=== PATIENT | female | born 1960 | race Caucasian/White ===

== ENCOUNTER 2017-10-16 19:43 | Emergency (ER) | payer OTHER ==
[~2017-10-16] VITALS: Ht 162.6 cm; Wt 124.4 kg
[~2017-10-16 19:43] MED LIST: ALBU1AER9 INH; ATV/1 PO; DOXE50CA3 PO; FLUO10CA48 PO; FURO-85 PO; HARVONI PO; HOME1TAB55 PO; INSDGIPEN SC; LEVO175T PO; LISI5TAB PO; NVLGI SC; ONDA-63 PO; SIMV20TA5 PO; TAMO20TA9 PO; TOPI50TA16 PO
[2017-10-16 19:50] VITALS: TEMP 37; Ht 162.6 cm; Wt 124.4 kg
--- NOTE | 2017-10-16 20:28 | DIAGNOSTIC IMAGING REPORT ---
L SHOULDER MIN 2 VIEWS ROUTINE HISTORY: 57 years-old Female L shoulder acute left shoulder pain COMPARISON: Chest radiographs 10/15/2015 TECHNIQUE: 3 views of the left shoulder FINDINGS: Mild degenerative changes of the glenohumeral and AC joints. There is no acute fracture or dislocation identified. The imaged lung horan appear clear. IMPRESSION: No acute fracture or dislocation. The above report was generated using voice recognition software. It may contain grammatical, syntax or spelling errors. Electronically signed by: Ap Borges M.D. 10/16/2017 8:27 PM Dictated Date/Time: 10/16/2017 8:25 PM
[2017-10-16] MEDS ORDERED: KETOROLAC TROMETHAMINE 10 MG TAB PO STA (20:38)
--- NOTE | 2017-10-16 20:47 | EMERGENCY ROOM VISIT NOTE ---
ED Visit Note First contact with patient: 19:55 I have seen and examined this patient with Raffy William and generally agree with the treatment plan as discussed. Problem List Medical Problems: (1) Ankle fracture, left Permanent Comment: s/p repair Status: Resolved (2) Anxiety Status: Chronic (3) Breast cancer Status: Chronic (4) Diabetes mellitus Status: Chronic (5) Hepatitis C Status: Chronic (6) HTN (hypertension) Status: Chronic (7) Hypothyroidism Status: Chronic Surgical Problems: (1) S/P cholecystectomy Status: Chronic (2) S/P partial hysterectomy Status: Chronic (3) S/P tubal ligation Status: Chronic Current/Historical Medications Scheduled Albuterol (Proair Hfa), 2 PUFFS INH QID Doxepin (Sinequan), 100 MG PO QPM Fluoxetine (Prozac), 30 MG PO QAM Insulin Aspart (Novolog), 1 UNITS SC TID Insulin Glargine (Lantus Solostar), 50 UNITS SC BID Levothyroxine Sodium (Synthroid), 175 MCG PO QAM Lisinopril (Prinivil), 2.5 MG PO QAM Simvastatin (Zocor), 20 MG PO QPM Tamoxifen (Nolvadex), 20 MG PO QAM Topiramate (Topamax), 50 MG PO HS [harvoni 90-400 mg], 1 TAB PO DAILY Scheduled PRN Furosemide (Lasix), 20 MG PO DAILY PRN for WEIGHT GAIN Homeopathic Products (Azo Yeast Plus), 1 TAB PO UD PRN for YEAST SYMPTOMS Lorazepam (Ativan), 1 MG PO TID PRN for ANXIETY Ondansetron (Ondansetron HCl), 8 MG PO Q8 PRN for Nausea Allergies Coded Allergies: Codeine (Verified Adverse Reaction, Mild, N/V, 08/26/15) Varenicline (Verified Adverse Reaction, Mild, [place]IGHT[place], 08/26/15) Morphine (Verified Adverse Reaction, Unknown, PT HAD INSTANT HEADACHE AND NECK PAIN AFTER IVP DOSE, 08/26/15) Vital Signs Date Time Temp Pulse Resp B/P (MAP) Pulse Ox O2 Delivery O2 Flow Rate FiO2 10/16/17 19:50 37.0 97 20 164/119 96 Room Air Departure Information Impression Primary Impression: Left shoulder pain Dispostion Home / Self-Care Forms HOME CARE DOCUMENTATION FORM, IMPORTANT VISIT INFORMATION Patient Instructions My [facility] Additional Instructions Use 10 mg of Toradol every 6 hours as needed for pain; do not take additional NSAID medications like Aleve, aspirin or ibuprofen with this medication. This medication should be taken with food and stop for stomach pain or indigestion. Use ice on the area 5-6 times a day for 20-30 minutes. Keep your upcoming appointment with your primary care provider for recheck and possible referral to orthopedics. Return to the ED for worsening pain, arm weakness/numbness/tingling or any new/ concerning symptoms.
[2017-10-16 21:00] VITALS: BP 127/100; PULSE 87; O2SAT 95
--- NOTE | 2017-10-17 15:43 | Pharmacy Progress Note ---
ED Pharmacist Progress Note Date of Service: Oct 17, 2017. Called the following to [facility] at the request of Raffy William PA-C Toradol 10 mg tablet 1 tab po q6h prn pain #20 tabs, 0 refill
--- NOTE | 2017-10-17 20:39 | EMERGENCY ROOM VISIT NOTE ---
ED Visit Note First contact with patient: 19:55 Chief Complaint: I think I tore my rotator cuff in my left shoulder. History of Present Illness: Ms. Gates is a 57-year-old white female who ambulates into the ED complaining of left shoulder pain. Historically patient reports that she had a fusion to her right foot feet approximately a 2 months ago and and since that time she has been having multiple falls; her last fall was approximately 3 weeks ago as she was carrying groceries. She reports most of her falls she has been able to compensate and not strike the ground by extending her arms, but she has never fall directly on the shoulder. Historically patient also reports that she has been having shoulder pain for many months. She reports that she was in pain management for many years for her chronic pain conditions. She goes on to report that she was discharged from pain management in April because of a criminal conviction. Currently patient is complaining of severe left shoulder pain. She places her discomfort over the anterior and lateral humeral head. She describes her pain as a sharp sensation. Her pain is nonradiating. Her pain worsens with abduction and extension of the arm and palpation of the anterior lateral humerus. She has not identified any alleviating factors related to the pain. She reports she has not taken any medications for pain prior to arrival at the hospital. Associated with her pain she reports she feels that her shoulder is weak primarily with abduction, extension and external rotation. She denies any associated skin eruptions, skin color changes, headache, neck pain, clavicle pain, scapular pain, lower humerus pain, elbow pain, forearm pain, wrist pain, hand weakness/numbness/tingling. Review of Systems: As noted above in history of present illness. Past Medical History: Diabetes, kidney disease, unspecified skin problems, asthma, bronchitis, pneumonia, hepatitis C, glaucoma, status post cholecystectomy, hysterectomy and unspecified foot surgeries. Current Medications: Medications Dose Route/Sig Max Daily Dose Days Date Category Dose Instructions Ondansetron HCl (Ondansetron) 8 Mg Tab 8 Mg PO Q8 PRN 08/26/15 Reported [harvoni 90-400 mg] 1 Tab PO DAILY 08/23/15 Reported Azo Yeast Plus (Homeopathic Products) 1 Tab Tab 1 Tab PO UD PRN 08/08/15 Reported Prozac (Fluoxetine HCl) 10 Mg Cap 30 Mg PO QAM 08/02/15 Reported Ativan (Lorazepam) 1 Mg Tab 1 Mg PO TID PRN 05/22/15 Reported Synthroid (Levothyroxine Sodium) 175 Mcg Tab 175 Mcg PO QAM 05/22/15 Reported Sinequan (Doxepin HCl) 50 Mg Cap 100 Mg PO QPM 05/22/15 Reported Topamax (Topiramate) 50 Mg Tab 50 Mg PO HS 11/30/14 Reported Lasix (Furosemide) 20 Mg Tab 20 Mg PO DAILY PRN 11/30/14 Reported Novolog (Insulin Aspart) 100 Unit/ Inj 1 Units SC TID 11/30/14 Reported takes before breakfast, lunch, and dinner per slidin scale Prinivil (Lisinopril) 5 Mg Tab 2.5 Mg PO QAM 11/30/14 Reported Zocor (Simvastatin) 20 Mg Tab 20 Mg PO QPM 11/30/14 Reported Nolvadex (Tamoxifen Citrate) 20 Mg Tab 20 Mg PO QAM 11/30/14 Reported Lantus Solostar (Insulin Glargine) 100 Unit/Ml Inj 50 Units SC BID 11/30/14 Reported Proair Hfa (Albuterol) Aers 2 Puffs INH QID 11/30/14 Reported Allergies to Medications: Codeine, morphine,varenicline. Social History: Patient is not employed; she is on disability; she feels safe in her home environment; she denies tobacco and alcohol use. Physical Examination: Vital Signs: Date Time Temp Pulse Resp B/P (MAP) Pulse Ox O2 Delivery O2 Flow Rate FiO2 10/16/17 21:00 87 16 127/100 95 10/16/17 19:50 37.0 97 20 164/119 96 Room Air GENERAL: 57-year-old female in mild distress due to pain, nontoxic-appearing, afebrile and hemodynamically stable. NEUROLOGICAL: Awake, alert and oriented to person, place and time. Answering questions appropriately and following commands. Normal gait. Good hand eye coordination. SKIN: Warm, dry and pink. No soft tissue eruptions or trauma noted. HEENT: Atraumatic and normocephalic. BACK: No tenderness over the bony cervical and thoracic spine. No tenderness throughout the paraspinous muscles and no palpable spasm. LEFT UPPER EXTREMITY: No gross bony deformity. No tenderness over the clavicle , acromion clavicular joint and scapula. Mild to moderate tenderness over the anterior and lateral humeral head. I do not find any point tenderness over the SITS muscles. I do not appreciate any bony deformity or crepitus. She has decreased range of motion in all movements due to pain. She refused muscle strength testing due to pain. With the shoulder stabilized she had full range of motion in flexion and extension of the elbow, pronation and supination of the forearm, flexion, extension and radial and ulnar deviation of the wrist against resistance. Throughout the extremity the skin was warm and pink and capillary refill was brisk. She was able to distinguish light sensations to all dermatomes. ED Course: Patient is assessed as noted above. Patient's medication list was reviewed. Patient was given 10 mg of Toradol by mouth for pain. Left Shoulder X-Rays: Was read by myself and the radiologist showing no acute fractures or dislocations. Radiologist does note mild degenerative changes of the glenohumeral and acromioclavicular joints. Patient was offered a sling and refused. Patient was educated about today's findings and instructed on her treatment plan ; she verbalized understanding and agreement with this plan. Clinical Impression: Left shoulder pain. Decision-Making: Initially my differential diagnosis I considered fracture, dislocation, separation, chronic degenerative changes, capsulitis and other causes. Disposition: Patient discharged home in stable condition; prior to departure she was reassessed and subjectively reported she was pain-free. Plan: Patient was encouraged to use 10 mg of Toradol every 6 hours as needed for pain and not to use any additional NSAID medications. She is encouraged to take this medication with food and stop for stomach pain or indigestion. Patient was encouraged to use ice on areas of pain 5-6 times a day for 20-30 minutes. Patient reports she has an upcoming appointment with her primary care provider and I asked her to keep that appointment and review ED visit and have her shoulder reevaluated or possible referral to orthopedics. Patient was encouraged to return the ED for worsening/uncontrolled pain, arm weakness/numbness/tingling or any new/concerning symptoms.
== END 2017-10-16 21:03 | disposition home or self-care (01) ==
LOC: C.EDB 19:44 → C.EDD 21:03
DX: M25.512 Pain in left shoulder (principal); E11.9 Type 2 diabetes mellitus without complications; J45.909 Unspecified asthma, uncomplicated; B19.20 Unspecified viral hepatitis C without hepatic coma; I10 Essential (primary) hypertension; E03.9 Hypothyroidism, unspecified; H40.9 Unspecified glaucoma; Z90.49 Acquired absence of other specified parts of digestive tract; Z90.711 Acquired absence of uterus with remaining cervical stump; Z79.4 Long term (current) use of insulin; Z88.5 Allergy status to narcotic agent; Z88.8 Allergy status to other drugs, medicaments and biological substances; F41.9 Anxiety disorder, unspecified; Z98.51 Tubal ligation status

== ENCOUNTER 2020-04-24 15:43 | Observation (INO) ==
[2020-04-24] MEDS ORDERED: ONDANSETRON INJ 2 MG/ML 2 ML VIAL IV STA (16:04)
[2020-04-24] MEDS ORDERED: MoRPHine SULFATE 4 MG/ML 1 ML CARP\\VIAL IV STA ×2 (16:04→17:17)
--- NOTE | 2020-04-24 16:12 | Emergency Department Note ---
History of Present Illness General Chief complaint: Hip Pain Time Seen by Provider: 04/24/20 15:55 Source: patient Mode of arrival: EMS Limitations: no limitations History of Present Illness Maximum Pain Intensity: 10 This patient comes in after having left hip pain for 3 weeks she says it shoots down her leg and also radiates towards her buttocks and groin. She tried Advil and said it was working for a while but is no longer working. Today when she got up she had so much pain in her legs she said it felt like he could not work and she fell or almost fell a few times but denies any injury. There is no injury prior to this. She says she has a history of having a disc problem in her back but is never had any surgery or been seen by an orthopedist. She also does have fibromyalgia. She denies any fever or chills. No urinary symptoms No known exposure to COVID. No COVID-like symptoms she does have a chronic smoker's cough which is unchanged. No achiness.. No bowel or bladder problems. Home Medications Home Medications Medication Instructions Recorded Confirmed Type albuterol sulfate 2 inh INHALATION Q6H PRN 08/21/18 04/24/20 History duloxetine 60 mg PO BID 08/21/18 04/24/20 History furosemide 20 mg PO DAILY PRN 08/21/18 04/24/20 History omeprazole 20 mg PO QAM PRN 08/21/18 04/24/20 History simvastatin 20 mg PO HS 08/21/18 04/24/20 History Lantus U-100 Insulin 40 unit SUBCUT QPM 10/28/18 04/24/20 History Trulicity 1.5 mg SUBCUT MO 10/28/18 04/24/20 History gabapentin [Neurontin] 800 mg PO TID 10/28/18 04/24/20 History levothyroxine [Synthroid] 150 mcg PO QAM 10/28/18 04/24/20 History quetiapine [Seroquel] 100 mg PO HS 03/27/19 04/24/20 History lorazepam [Ativan] 1 mg PO BID 09/23/19 04/24/20 History topiramate [Topamax] 25 mg PO BID 09/23/19 04/24/20 History ondansetron HCl [Zofran] 4 mg PO BID PRN 11/30/19 04/24/20 History Medical Marijuanna 1 dose INHALATION DAILY PRN 03/03/20 04/24/20 History hydroxyzine pamoate 50 mg PO TID 04/24/20 04/24/20 History Allergies Allergy/AdvReac Type Severity Reaction Status Date / Time codeine AdvReac Mild N/V Verified 04/24/20 17:34 varenicline AdvReac Mild NIGHTMARES Verified 04/24/20 17:34 Past Med/Surg History Medical History (Updated 04/24/20 @ 22:57 by Roscoe Bach MD) Anxiety Chronic obstructive pulmonary disease Depression Diabetes mellitus, type 2 Fibromyalgia GERD (gastroesophageal reflux disease) History of falling 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 Hx of hepatitis C treated HX: breast cancer 2013 LEFT - radiation and lumpectomy and oral chemo Hyperlipidemia Hypertension taking med for precaution with diabetes Medical marijuana use Osteoarthritis Peripheral neuropathy LEGS - BOTH FEET Schizoaffective disorder Surgical History History of ankle surgery RT ANKLE X 3 History of bilateral tubal ligation History of cholecystectomy History of colonoscopy History of dilatation and curettage History of esophagogastroduodenoscopy (EGD) History of hysterectomy History of lumpectomy of left breast History of open reduction and internal fixation (ORIF) procedure RIGHT ANKLE History of surgery TO REMOVE CALCIUM DEPOSIT FROM BACK History of tooth extraction all teeth Family History Father Family history of diabetes mellitus Other No family history of adverse response to anesthesia Social History Smoking Status: Current every day smoker Tobacco Type: Cigarettes Cigarettes Per Day: 12; Second Hand Exposure: No; Hx Alcohol Use: No Hx Substance Use: Yes (USES 2-3X WEEK) Last Used Substance Other:: medical marijuanna Substance Use Type Other:: (ADVISED) Preferred Language: Liberian Communication Ability: Effective Can Operator Required: No Beliefs That Will Affect Care: None Current Living Situation: Alone Current Living Situation Comment: friends stay Feels Safe at Home: Yes Safety Concerns: Feels Safe At This Time Assistive Devices: Cane, Denture - Upper, Denture - Lower and Wheelchair Review of Systems A total of 10 systems reviewed and were otherwise negative Physical Exam Vital Signs Vital Signs - 24 hr 04/24/20 15:49 04/24/20 17:34 04/24/20 19:43 Temperature 36.7 C Temperature Source Oral Pulse Rate 78 73 Pulse Rate [Right Finger] 72 73 Pulse Rhythm Regular Pulse Strength Normal Respiratory Rate 16 16 22 Respiratory Effort / Characteristics Non-Labored Non-Labored Respiratory Depth Normal Normal Respiratory Pattern Regular Blood Pressure 158/96 H Blood Pressure [Right Arm] 137/87 168/97 H Blood Pressure Mean 116 Blood Pressure Mean [Right Arm] 103 120 Blood Pressure Position Lying Blood Pressure Position [Right Arm] Sitting Sitting Pulse Oximetry 98 93 95 Oxygen Delivery Method Room Air Room Air Room Air Sepsis Recent Fever Within 48 Hours No Sepsis New/Unexplained Change in Mental Status N/A Sepsis Action Taken by Nursing No Action Required General: Well developed well nourished middle-age female who appears in no acute distress, breathing comfortably on room air. Normal speech HEENT: Normal cephalic atraumatic. Pupils are equal round and reactive to light. Extraocular movements are intact. Oropharynx is pink with moist mucous membranes. No swelling of the mouth lips or tongue. Neck: Supple with a midline trachea. No meningeal signs or stiffness, no JVD or bruits. No Stridor. Chest: Clear to auscultation bilaterally. No wheezes or rhonchi. No increased work of breathing. Heart: Regular rate and rhythm without murmurs or gallops. Abdomen: Soft nontender, nondistended without rebound guarding or rigidity. Extremities: No cyanosis clubbing or edema. No calf tenderness or assymetry. T here is no mass or swelling in the left groin. There is minimal tenderness with leg raise. There is no shortening or deformity. Distally in the left lower extremity has normal motor and sensation and pulse. When I rotate her hip that causes a little bit of pain. She has pain along the left SI joint Spine/Back. Mildly tender to palpation. No CVA tenderness Skin: Good turgor without rashes. Neurologic exam: Cranial nerves two through 12 are intact. Motor and sensation are intact and symmetrical throughout. Course Administered Medications Cyclobenzaprine HCl (Cyclobenzaprine Hcl 10 Mg Tab) 10 mg PO TID ANGIE Stop: 05/24/20 20:59 Last Admin: 04/24/20 20:57 Dose: 10 mg Documented by: [id number] Diclofenac Sodium (Diclofenac Sod 1% Gel 100 Gm Tube) 4 gm EXT BID [facility] Stop: 05/24/20 20:59 Last Admin: 04/24/20 21:19 Dose: 4 gm Documented by: [id number] Gabapentin (Gabapentin 800 Mg Tab) 800 mg PO TID ANGIE Stop: 05/24/20 20:59 Last Admin: 04/24/20 21:20 Dose: 800 mg Documented by: [id number] Hydralazine HCl (Hydralazine Hcl 20 Mg/Ml Vial) 10 mg IV Q6H PRN PRN Reason: Hypertension Stop: 05/24/20 20:29 Last Admin: 04/24/20 20:57 Dose: 10 mg Documented by: [id number] Insulin Aspart (Insulin Aspart 100 Units/Ml 3 Ml Pen) 0 units SC ACHS [facility] Stop: 04/24/20 23:59 Last Admin: 04/24/20 21:16 Dose: 5 units Documented by: [id number] Cosigned by: [id number] Lidocaine (Lidocaine 5% 1 Patch) 1 patch TD 2100 [facility] Stop: 05/24/20 20:59 Last Admin: 04/24/20 21:19 Dose: 1 patch Documented by: [id number] Lorazepam (Lorazepam 1 Mg Tab) 1 mg PO BID [facility] Stop: 05/24/20 20:59 Last Admin: 04/24/20 20:57 Dose: 1 mg Documented by: [id number] Morphine Sulfate (Morphine Sulfate 2 Mg/Ml Carp) 2 mg IV Q3H PRN PRN Reason: Pain Stop: 05/08/20 21:39 Last Admin: 04/24/20 21:46 Dose: 2 mg Documented by: [id number] Quetiapine Fumarate (Quetiapine Fumarate 100 Mg Tablet) 100 mg PO HS [facility] Stop: 05/24/20 20:59 Last Admin: 04/24/20 21:21 Dose: 100 mg Documented by: [id number] Simvastatin (Simvastatin 20 Mg Tab) 20 mg PO HS [facility] Stop: 05/24/20 20:59 Last Admin: 04/24/20 21:21 Dose: 20 mg Documented by: [id number] Topiramate (Topiramate 25 Mg Tab) 25 mg PO BID [facility] Stop: 05/24/20 20:59 Last Admin: 04/24/20 21:21 Dose: 25 mg Documented by: [id number] Tramadol HCl (Tramadol Hcl 50 Mg Tablet) 50 mg PO Q4H PRN PRN Reason: Pain Stop: 05/24/20 20:27 Last Admin: 04/24/20 21:15 Dose: 50 mg Documented by: [id number] Discontinued Medications Insulin Glargine (Insulin Glargine Solostar 100 Units/Ml 3 Ml Pen) 20 units SQ TODAY@2100 ANGIE Stop: 04/24/20 21:01 Last Admin: 04/24/20 21:18 Dose: 20 units Documented by: [id number] Cosigned by: [id number] Insulin Human NPH (Novolin-N (Nph) Per Unit Charge) 20 units SQ TODAY@2100 ANGIE Stop: 04/24/20 21:01 Last Admin: 04/24/20 21:17 Dose: 20 units Documented by: [id number] Cosigned by: [id number] Methylprednisolone (Methylprednisolone 125 Mg/2 Ml Vial) 125 mg IV NOW STA Stop: 04/24/20 17:18 Last Admin: 04/24/20 17:30 Dose: 125 mg Documented by: [id number] Morphine Sulfate (Morphine Sulfate 4 Mg/Ml 1 Ml Carp\Vial) 4 mg IV NOW STA Stop: 04/24/20 16:05 Last Admin: 04/24/20 16:44 Dose: 4 mg Documented by: [id number] Morphine Sulfate (Morphine Sulfate 4 Mg/Ml 1 Ml Carp\Vial) 4 mg IV NOW STA Stop: 04/24/20 17:18 Last Admin: 04/24/20 17:30 Dose: 4 mg Documented by: [id number] Ondansetron HCl (Ondansetron Inj 2 Mg/Ml 2 Ml Vial) 4 mg IV NOW STA Stop: 04/24/20 16:05 Last Admin: 04/24/20 16:44 Dose: 4 mg Documented by: [id number] Medical Decision Making Differential Diagnosis Sciatica, lumbar degenerative disc disease, fracture, hip dislocation, arthritis, infection, diabetic complication, fibromyalgia Medical Records Attestation: I reviewed the patient's medical records. Home Medications Current Medication List: was personally reviewed by me Laboratory Data Attestation: I reviewed the patient's lab results. Result diagrams: 04/24/20 16:13 04/24/20 16:13 Lab Results 04/24/20 04/24/20 Range/Units 16:13 16:13 WBC 9.77 (4.8-10.8) K/uL RBC 4.38 (4.2-5.4) M/uL Hgb 12.5 (12.0-16.0) g/dL Hct 39.3 (37-47) % MCV 89.7 (80-100) fL MCH 28.5 (25-34) pg MCHC 31.8 L (32-36) g/dL RDW Std Deviation 50.3 H (36.4-46.3) fL RDW Coeff of Jessy 15.5 H (11.5-14.5) % Plt Count 281 (130-400) K/uL MPV 9.2 (7.4-10.4) fL Immature Gran % (Auto) 0.2 % Neut % (Auto) 69.1 % Lymph % (Auto) 19.5 % [place] % (Auto) 5.3 % Eos % (Auto) 5.5 % Baso % (Auto) 0.4 % Neut # (Auto) 6.74 H (1.4-6.5) K/uL Lymph # (Auto) 1.91 (1.2-3.4) K/uL [place] # (Auto) 0.52 (0.11-0.59) K/uL Eos # (Auto) 0.54 H (0-0.5) K/uL Baso # (Auto) 0.04 (0-0.2) K/uL Immature Gran # (Auto) 0.02 (0.00-0.02) K/uL Sodium 142 (136-145) mmol/L Potassium 3.7 (3.5-5.1) mmol/L Chloride 108 H (98-107) mmol/L Carbon Dioxide 29 (21-32) mmol/L Anion Gap 5.0 (3-11) BUN 9 (7-18) mg/dl Creatinine 0.87 (0.6-1.2) mg/dl Est Cr Clr Drug Dosing 85.9 ml/min Est GFR ( Amer) 85.1 Est GFR (Non-Af Amer) 73.4 BUN/Creatinine Ratio 10.5 (10-20) Glucose 165 H (70-99) mg/dl Calcium 8.1 L (8.5-10.1) mg/dl Total Bilirubin 0.2 (0.2-1) mg/dl AST 22 (15-37) U/L ALT 18 (12-78) U/L Alkaline Phosphatase 100 (45-117) U/L Total Protein 6.3 L (6.4-8.2) gm/dl Albumin 2.9 L (3.4-5.0) gm/dl Globulin 3.4 (2.5-4.0) gm/dl Albumin/Globulin Ratio 0.9 (0.9-2) Lipase 155 (73-393) U/L Imaging Data Attestation: I personally reviewed and interpreted this imaging study as follows: Radiologist's Impression: XR hip LT 2V w pelvis CLINICAL HISTORY: left hip pain COMPARISON: Left hip radiographs November 24, 2015. FINDINGS: Sacroiliac joints and symphysis pubis are intact. There is no acute fracture within the pelvis or hips. There is no radiographic evidence for avascular necrosis of the femoral heads. There is minimal joint space narrowing and mild osteophytosis of the left hip. A few bone islands within the intertrochanteric portion of the left femur are noted. IMPRESSION: 1. No acute fracture within the pelvis or hips. 2. Mild left hip osteoarthritis. XR lumbar spine min 4V routine CLINICAL HISTORY: back pain towards left hip COMPARISON STUDY: Lumbar spine radiographs November 24, 2015. FINDINGS: Incidental note is made of cholecystectomy clips. Alignment of the lumbar spine is anatomic. Vertebral body heights are maintained. There is no fracture or suspicious lesion. There is mild multilevel disc space narrowing and osteophytosis. There is mild to moderate multilevel facet arthrosis. IMPRESSION: 1. No acute lumbar spine fracture or subluxation. 2. [id number]-[id number] multilevel degenerative changes within the lumbar spine. Blood Pressure Blood Pressure Findings: Elevated blood pressure Blood Pressure Disposition: elevated BP felt to be situational MDM Narrative This patient comes in as described above. She was placed in room C2. She is having ongoing left hip pain. There is no trauma. On exam, she does not appear dislocated or shortened. She is neurologically and neurovascularly intact. She has nothing to suggest cauda equina syndrome. She is not driving. She does have history of fibromyalgia but says this feels different. She denies feeling depressed or suicidal. IV access was established. She was given morphine 4 mg IV and Zofran 4 mg IV. Blood testing and urinalysis was obtained as well as x- rays of the hip and back. Given the fact that she was given narcotic pain medication she was placed on a quantitative researcher. She has no significant electrolyte or metabolic abnormalities. X-rays show some degenerative changes of the back and lesser of the hip. No fracture or dislocation. She has nothing to suggest infection or sepsis. She is complaining that she cannot walk because it hurts and gives out. She was given an additional morphine 4 mg IV as well as Solu-Medrol 125 mg IV. Despite this she still cannot walk very well and I do think needs to be admitted for further treatment and evaluation and I did consult the hospitalist to see her for these measures. Continuous cardiac monitoring: An order was placed in the EMR for continuous cardiac monitoring. The patient was noted to be in normal sinus rhythm with a rate of 75. Impression & Plan Acute hip pain, Fibromyalgia, Lumbar disc disease with radiculopathy, Sciatica Discharge Plan Visit Data Chief Complaint: Hip Pain ED Provider: Roscoe Bach Discharge Problem: Acute hip pain, Fibromyalgia, Lumbar disc disease with radiculopathy, Sciatica Patient Disposition: Admitted As Inpatient Discharge Instructions Interventions: ED Discharge Assessment Last Done: 04/24/20 20:04 Discharge Problem: Acute hip pain Qualifiers: Laterality: left Qualified Code(s): M25.552 - Pain in left hip Sciatica Qualifiers: Laterality: left Qualified Code(s): M54.32 - Sciatica, left side
[2020-04-24 16:26] LABS: Basophils # (auto) 0.04 K/uL (0-0.2); Basophils % (auto) 0.4 %; Eosinophils # (auto) 0.54 K/uL (0-0.5); Eosinophils % (auto) 5.5 %; Hematocrit (blood only) 39.3 % (37-47); Hemoglobin 12.5 g/dL (12.0-16.0); Immature Granulocytes # (auto) 0.02 K/uL (0.00-0.02); Immature Granulocytes % (auto) 0.2 %; Lymphocytes # (auto) 1.91 K/uL (1.2-3.4); Lymphocytes % (auto) 19.5 %; Mean Corpuscular Hemoglobin 28.5 pg (25-34); Mean Corpuscular Hgb Conc 31.8 g/dL (32-36); Mean Corpuscular Volume 89.7 fL (80-100); Mean Platelet Volume 9.2 fL (7.4-10.4); Monocytes # (auto) 0.52 K/uL (0.11-0.59); Monocytes % (auto) 5.3 %; Neutrophils # (auto) 6.74 K/uL (1.4-6.5); Neutrophils % (auto) 69.1 %; Platelet Count 281 K/uL (130-400); RDW Coefficient of Variation 15.5 % (11.5-14.5); RDW Standard Deviation 50.3 fL (36.4-46.3); Red Blood Count 4.38 M/uL (4.2-5.4); White Blood Count 9.77 K/uL (4.8-10.8)
--- NOTE | 2020-04-24 16:39 | XRay Report ---
XR hip LT 2V w pelvis CLINICAL HISTORY: left hip pain COMPARISON: Left hip radiographs November 24, 2015. FINDINGS: Sacroiliac joints and symphysis pubis are intact. There is no acute fracture within the pe lvis or hips. There is no radiographic evidence for avascular necrosis of the femoral heads. There is minimal joint space narrowing and mild osteophytosis of the left hip. A few bone islands within the intertrochanteric portion of the left femur are noted. IMPRESSION: 1. No acute fracture within the pelvis or hips. 2. Mild left hip osteoarthritis. ACT 112: Negative or not required by law. Electronically signed by: Satish Wheeler M.D. 04/24/2020 4:38 PM
--- NOTE | 2020-04-24 16:40 | XRay Report ---
XR lumbar spine min 4V routine CLINICAL HISTORY: back pain towards left hip COMPARISON STUDY: Lumbar spine radiographs November 24, 2015. FINDINGS: Incidental note is made of cholecystectomy clips. Alignment of the lumbar spine is anatomic . Vertebral body heights are maintained. There is no fracture or suspicious lesion. There is mild mul tilevel disc space narrowing and osteophytosis. There is mild to moderate multilevel facet arthrosis. IMPRESSION: 1. No acute lumbar spine fracture or subluxation. 2. [id number] multilevel degenerative changes within the lumbar spine. ACT 112: Negative or not required by law. Electronically signed by: Satish Wheeler M.D. 04/24/2020 4:39 PM
[2020-04-24 16:44] LABS: Albumin Level 2.9 gm/dl (3.4-5.0); BUN Creatinine Ratio 10.5 (10-20); Calcium 8.1 mg/dl (8.5-10.1); Creatinine Clr Calc Pharmacy 85.9 ml/min; Est GFR (African American) 85.1; Est GFR (Non-African American) 73.4; Potassium 3.7 mmol/L (3.5-5.1)
[2020-04-24 16:47] LABS: Albumin Globulin Ratio 0.9 (0.9-2); Bilirubin,Total 0.2 mg/dl (0.2-1); Globulin 3.4 gm/dl (2.5-4.0); Total Protein 6.3 gm/dl (6.4-8.2)
[2020-04-24] MEDS ORDERED: methylPREDNISolone 125 MG/2 ML VIAL IV STA (17:17)
--- NOTE | 2020-04-24 20:09 | History & Physical Report ---
Date of Service April 24, 2020 Assessment & Plan (1) Acute hip pain: Patient with acute hip pain with some associated urinary incontinence Plain films with osteoarthritis and degenerative changes Need to rule out cauda equina Check MRI of lumbar region Consult orthopedic spine PT/OT evaluation treatment N.p.o. after midnight (2) Diabetes mellitus: Hemoglobin A1c on 04/01/2020 was 7.4 Continue with Lantus and sliding scale NovoLog Last injection of Trulicity was 1 week ago on Saturday We will hold Trulicity for now Resume outpatient meds on discharge and follow-up with PCP (3) Fibromyalgia: Tramadol Gabapentin Continue home meds (4) Hypothyroidism: Recent TSH has been elevated as an outpatient Continue levothyroxine at recently increased dose of 175 mcg daily (5) Schizoaffective disorder: Continue home medications Monitor for prolonged QTC Further management outpatient (6) HTN (hypertension): Lisinopril recently held as an outpatient secondary to acute kidney failure We will order hydralazine as needed for systolic blood pressure greater than 160 (7) DVT prophylaxis: Hold chemical prophylaxis pending MRI of lumbar region to rule out cauda equina SCDs SANTANA weinstein Please refer to Dr. Marc's addendum for further recommendations and corrections History of Present Illness Chief Complaint: Hip pain Primary Care Provider: Ania Rice MD Attending: Dr. Marc This is a 60-year-old female with a complicated medical history including fibromyalgia, hypothyroidism, diabetes mellitus type 2, hyper tension, history of breast cancer, history of left ankle fracture, GERD, schizoaffective disorder, glaucoma, morbid obesity, medical marijuana use, posttraumatic stress disorder, obstructive lung disease, chronic cough from smoking. The patient reports that for the last 2 to 3 weeks she has had increasing left- sided pain to her hip and leg with associated pain to her lumbar region. This is been more progressive over the last 2 to 3 days to the point where she had to crawl to the bathroom. She reports that she is unable to walk at this time. She does live alone. She reports that yesterday she had to crawl to the bathroom. In addition, she reports some urinary incontinence. The pain originates in her hip and goes down her left leg. Physical examination reveals no pain with straight leg raise but she does have noticeable weakness to the left lower extremity. Sensation is intact to the toes. It appears to be equal to the right and left distal extremities with the exception of Romberg where she had minimal discomfort on the left sole of the foot. She reports no falls or trauma. She reports no injury to the left hip. She denies any fever or chills. She does not have any exquisite pain to palpation of the left hip or lumbar region of her back. She denies motor vehicle accident in the past or other traumatic injury. She denies any prior lumbar surgery. She states that she does follow with the [facility] [place] with Dr. Mathieu Dent for previous right ankle fracture and fusion. The patient does have children in the area as well as grandchildren. She denies any contact with any COVID positive patients or patients with question of symptoms. She does have 1 child that works at [employer] who has been isolated from the patient for fear of communicable disease. She denies any fever or chills. She has no loss of taste or smell. She has no other associated COVID symptoms. The patient is a lifetime smoker starting at age 15 and smoking 1 pack/day since that time to present. The patient is prescribed medical marijuana The patient denies any other illicit substance abuse or ethanol abuse The patient states that she is on disability since 2004. 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 Allergies Allergy/AdvReac Type Severity Reaction Status Date / Time codeine AdvReac Mild N/V Verified 04/24/20 17:34 varenicline AdvReac Mild NIGHTMARES Verified 04/24/20 17:34 Home Medications Home Medications Medication Instructions Recorded Confirmed Type albuterol sulfate 2 inh INHALATION Q6H PRN 08/21/18 04/24/20 History duloxetine 60 mg PO BID 08/21/18 04/24/20 History furosemide 20 mg PO DAILY PRN 08/21/18 04/24/20 History omeprazole 20 mg PO QAM PRN 08/21/18 04/24/20 History simvastatin 20 mg PO HS 08/21/18 04/24/20 History Lantus U-100 Insulin 40 unit SUBCUT QPM 10/28/18 04/24/20 History Trulicity 1.5 mg SUBCUT MO 10/28/18 04/24/20 History gabapentin [Neurontin] 800 mg PO TID 10/28/18 04/24/20 History levothyroxine [Synthroid] 150 mcg PO QAM 10/28/18 04/24/20 History quetiapine [Seroquel] 100 mg PO HS 03/27/19 04/24/20 History lorazepam [Ativan] 1 mg PO BID 09/23/19 04/24/20 History topiramate [Topamax] 25 mg PO BID 09/23/19 04/24/20 History ondansetron HCl [Zofran] 4 mg PO BID PRN 11/30/19 04/24/20 History Medical Marijuanna 1 dose INHALATION DAILY PRN 03/03/20 04/24/20 History hydroxyzine pamoate 50 mg PO TID 04/24/20 04/24/20 History Past Med/Surg History Medical History (Updated 04/24/20 @ 20:04 by Tremayne De La Fuente PA-C) Anxiety Chronic obstructive pulmonary disease Depression Diabetes mellitus, type 2 Fibromyalgia GERD (gastroesophageal reflux disease) History of falling 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 Hx of hepatitis C treated HX: breast cancer 2013 LEFT - radiation and lumpectomy and oral chemo Hyperlipidemia Hypertension taking med for precaution with diabetes Medical marijuana use Osteoarthritis Peripheral neuropathy LEGS - BOTH FEET Schizoaffective disorder Surgical History History of ankle surgery RT ANKLE X 3 History of bilateral tubal ligation History of cholecystectomy History of colonoscopy History of dilatation and curettage History of esophagogastroduodenoscopy (EGD) History of hysterectomy History of lumpectomy of left breast History of open reduction and internal fixation (ORIF) procedure RIGHT ANKLE History of surgery TO REMOVE CALCIUM DEPOSIT FROM BACK History of tooth extraction all teeth Family History Father Family history of diabetes mellitus Other No family history of adverse response to anesthesia Social History Smoking Status: Current every day smoker Tobacco Type: Cigarettes Cigarettes Per Day: 10; Second Hand Exposure: No; Hx Alcohol Use: No Hx Substance Use: Yes (USES 2-3X WEEK) Last Used Substance Other:: medical marijuanna Substance Use Type Other:: (ADVISED) Preferred Language: Citizen Of [place] Communication Ability: Effective 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 Pupils equal round react to light NOSE: No evidence of epistaxis MOUTH: No lesions or candidiasis NECK: Supple LUNGS: CTA B/L, no wheezes, rales or rhonchi HEART: Regular, rate controlled ABDOMEN: Soft, NT, ND, BS Present EXTREMITIES: No LE edema, pedal pulses intact and equal bilaterally. No pain with straight leg raise bilaterally. Noticeable weakness to the left lower extremity from the hip and knee. Sensation intact to entire left lower extremity and equal to sensation on the right. Minimal pain with palpation to the left hip. Minimal pain to the paraspinal muscles of the lumbar region. No focal pain or obvious deformity of the vertebrae in the lumbar region NEURO: A&OX3. Cranial nerves II through XII appear grossly intact without focal deficit. Results & Data Results & Data ([facility]) Vital Signs (Past 12 Hours) Vital Signs Temp Pulse Pulse Resp BP BP Pulse Ox 04/24/20 19:43 73 73 22 168/97 H 95 04/24/20 17:34 72 16 137/87 93 04/24/20 15:49 36.7 C 78 16 158/96 H 98 Laboratory Results 04/24/20 16:13 04/24/20 16:13 Diagnostic Findings XR lumbar spine min 4V routine CLINICAL HISTORY: back pain towards left hip COMPARISON STUDY: Lumbar spine radiographs November 24, 2015. FINDINGS: Incidental note is made of cholecystectomy clips. Alignment of the lumbar spine is anatomic. Vertebral body heights are maintained. There is no fracture or suspicious lesion. There is mild multilevel disc space narrowing and osteophytosis. There is mild to moderate multilevel facet arthrosis. IMPRESSION: 1. No acute lumbar spine fracture or subluxation. 2. [id number] multilevel degenerative changes within the lumbar spine. ACT 112: Negative or not required by law. Electronically signed by: Satish Wheeler M.D. 04/24/2020 4:39 PM XR hip LT 2V w pelvis CLINICAL HISTORY: left hip pain COMPARISON: Left hip radiographs November 24, 2015. FINDINGS: Sacroiliac joints and symphysis pubis are intact. There is no acute fracture within the pelvis or hips. There is no radiographic evidence for avascular necrosis of the femoral heads. There is minimal joint space narrowing and mild osteophytosis of the left hip. A few bone islands within the intertrochanteric portion of the left femur are noted. IMPRESSION: 1. No acute fracture within the pelvis or hips. 2. Mild left hip osteoarthritis. ACT 112: Negative or not required by law. Electronically signed by: Satish Wheeler M.D. 04/24/2020 4:38 PM Code Status & VTE Plan Code Status Level I: Full resuscitation VTE Prophylaxis Plan VTE Prophylaxis will be ordered: Yes Supervising Physician Co-Signing Physician Notes Patient was seen and examined by me, care coordinated with Tremayne De La Fuente PA-C. Please see his note above for further details. Mrs. Gates is a 60-year-old female, with hypothyroidism (TSH from earlier this month was 10.7), diabetes mellitus type 2, on insulin, (hemoglobin A1c from earlier this month was 7.4%), diabetic neuropathy, hep C, COPD, depression/anxiety, schizoaffective disorder, morbid obesity, and fibromyalgia who presents with left hip pain. Patient states she has been having anterior left hip pain for past 3 weeks, however for the past week it got worse and now radiated to the back of her hip and buttocks area and radiates down posteriorly to her thigh. Patient reports the pain to be sharp. She also reports pain in her lumbar spine. Today she was not able to move and therefore she presented to emergency room. She reports that she had some urinary incontinence, this seems to be as she was not able to make it to the bathroom due to pain. In ED she received morphine for pain and images were obtained, x-ray of her left hip and pelvis. X-ray of lumbar spine showed no acute fracture or subluxation, mild to moderate multilevel degenerative changes within the lumbar spine noted. Hip and pelvis x-ray, showed no acute fracture within the pelvis or hips, mild left hip osteoarthritis. On physical exam, patient is sitting up in bed, appears uncomfortable due to pain, changes position. Lungs are overall clear to auscultation, no wheezing noted she is breathing comfortably on room air. Heart sounds regular. Abdomen is soft, obese, nontender, positive bowel sounds. She is alert and oriented and answering questions appropriately. She is able to move her upper extremities without difficulty. However left lower extremity is significantly weaker and patient has troubles lifting her leg up from bed. She is able to move her right lower extremity without much difficulty. There is spinal tenderness in her lumbar area, there is no paraspinal tenderness noted. She is also tender to palpation in her left hip area anteriorly and posteriorly. skin is warm, dry, well perfused. Given her significant weakness, and discomfort, and concern for incontinence, will further image the area with MRI, and consult orthopedics. We will continue her home medications, including gabapentin, duloxetine, Flexeril. Will place lidocaine patch over her left hip/ lumbar spine, may use tramadol as needed. We will need to monitor closely as patient is also taking Ativan on a regular basis. Kali Marc MD (1) Acute hip pain Laterality: left Qualified Code(s): M25.552 - Pain in left hip
[2020-04-24] MEDS ORDERED: POLYETHYLENE (MIRALAX) 17 GM PACK PO PRN (20:28)
[2020-04-24] MEDS ORDERED: DEXTROSE 50% 50 ML SYRINGE IV PRN (20:28)
[2020-04-24] MEDS ORDERED: GLUCOSE 10 TABS/TUBE PO PRN (20:28)
[2020-04-24] MEDS ORDERED: PANTOprazole 40 MG TAB PO PRN (20:28)
[2020-04-24] MEDS ORDERED: ONDANSETRON 4 MG OD TAB PO PRN (20:28)
[2020-04-24] MEDS ORDERED: GLUCAGON FOR INJ 1 MG VIAL SQ PRN (20:28)
[2020-04-24] MEDS ORDERED: GLUCOSE 40% GEL 15 GM TUBE PO PRN (20:28)
[2020-04-24] MEDS ORDERED: ACETAMINOPHEN 325 MG TAB PO PRN (20:28)
[2020-04-24] MEDS ORDERED: CARBOHYDRATES FOR HYPOGLYCEMIA PO PRN (20:28)
[2020-04-24] MEDS ORDERED: HydrALAZINE HCL 20 MG/ML VIAL IV PRN (20:30)
[2020-04-24] MEDS ORDERED: PHARMACY GLYCEMIC MGMT CONSULT PRN (20:32)
[2020-04-24] MEDS ORDERED: PNEUMOCOCCAL ADMINISTRATION CHARGE ONE (20:37)
[2020-04-24] MEDS ORDERED: INFLUENZA VIRUS QUAD VACCINE 0.5 ML SYR IM ONE (20:37)
[2020-04-24] MEDS ORDERED: INFLUENZA ADMINISTRATION CHARGE ONE (20:37)
[2020-04-24] MEDS ORDERED: PNEUMOCOCCAL POLYSACCHARIDES 25 MCG/0.5 ML VIAL/SYR IM ONE (20:37)
[2020-04-24] MEDS: CYCLOBENZAPRINE HCL 10 MG TAB PO SCH (20:57)
[2020-04-24] MEDS: LORazepam 1 MG TAB PO SCH (20:57)
[2020-04-24] MEDS ORDERED: INSULIN GLARGINE SOLOSTAR 100 UNITS/ML 3 ML PEN SQ SCH (21:00)
[2020-04-24] MEDS ORDERED: INSULIN ASPART 100 UNITS/ML 3 ML PEN SC SCH (21:00)
[2020-04-24] MEDS ORDERED: NovoLIN-N (NPH) PER UNIT CHARGE SQ SCH (21:00)
[2020-04-24] MEDS: TRAMADOL HCL 50 MG TABLET PO PRN (21:15)
[2020-04-24] MEDS: DICLOFENAC SOD 1% GEL 100 GM TUBE EXT SCH (21:19)
[2020-04-24] MEDS: LIDOCAINE 5% 1 PATCH TD SCH (21:19)
[2020-04-24] MEDS: GABAPENTIN 800 MG TAB PO SCH (21:20)
[2020-04-24] MEDS: QUETIAPINE FUMARATE 100 MG TABLET PO SCH (21:21)
[2020-04-24] MEDS: TOPIRAMATE 25 MG TAB PO SCH (21:21)
[2020-04-24] MEDS: SIMVASTATIN 20 MG TAB PO SCH (21:21)
[2020-04-24] MEDS: MoRPHine SULFATE 2 MG/ML CARP IV PRN (21:46)
[2020-04-25] MEDS: INSULIN ASPART 100 UNITS/ML 3 ML PEN SC SCH ×4 (00:05→20:44)
[2020-04-25] MEDS: MoRPHine SULFATE 2 MG/ML CARP IV PRN ×3 (01:05→17:52)
[2020-04-25] MEDS: LEVOTHYROXINE SODIUM 175 MCG TABLET PO SCH (05:32)
[2020-04-25 07:02] LABS: Basophils # (auto) 0.01 K/uL (0-0.2); Basophils % (auto) 0.1 %; Hematocrit (blood only) 40.9 % (37-47); Hemoglobin 12.9 g/dL (12.0-16.0); Immature Granulocytes # (auto) 0.03 K/uL (0.00-0.02); Immature Granulocytes % (auto) 0.3 %; Lymphocytes # (auto) 1.04 K/uL (1.2-3.4); Lymphocytes % (auto) 11.8 %; Mean Corpuscular Hemoglobin 28.5 pg (25-34); Mean Corpuscular Hgb Conc 31.5 g/dL (32-36); Mean Corpuscular Volume 90.5 fL (80-100); Mean Platelet Volume 9.5 fL (7.4-10.4); Monocytes # (auto) 0.17 K/uL (0.11-0.59); Monocytes % (auto) 1.9 %; Neutrophils # (auto) 7.55 K/uL (1.4-6.5); Neutrophils % (auto) 85.9 %; Platelet Count 303 K/uL (130-400); RDW Coefficient of Variation 15.5 % (11.5-14.5); RDW Standard Deviation 51.8 fL (36.4-46.3); Red Blood Count 4.52 M/uL (4.2-5.4)
[2020-04-25 07:36] LABS: BUN Creatinine Ratio 11.9 (10-20); Calcium 8.8 mg/dl (8.5-10.1); Creatinine Clr Calc Pharmacy 85.2 ml/min; Est GFR (African American) 82.8; Est GFR (Non-African American) 71.4; Potassium 4.1 mmol/L (3.5-5.1)
[2020-04-25] MEDS: CYCLOBENZAPRINE HCL 10 MG TAB PO SCH ×3 (07:49→20:37)
[2020-04-25] MEDS: LORazepam 1 MG TAB PO SCH ×2 (07:49→20:37)
[2020-04-25] MEDS: DICLOFENAC SOD 1% GEL 100 GM TUBE EXT SCH ×2 (07:51→20:39)
[2020-04-25] MEDS: TOPIRAMATE 25 MG TAB PO SCH ×2 (07:52→20:38)
[2020-04-25] MEDS: DULOXETINE HCL 60 MG CAP PO SCH (07:52)
[2020-04-25] MEDS: GABAPENTIN 800 MG TAB PO SCH ×4 (07:53→20:38)
[2020-04-25] MEDS ORDERED: INSULIN ASPART 100 UNITS/ML 3 ML PEN SC SCH ×3 (08:00→12:00)
--- NOTE | 2020-04-25 08:53 | Magnetic Resonance Report ---
MRI OF THE LUMBAR SPINE COMBO CLINICAL HISTORY: Left lower extremity weakness. Urinary incontinence. COMPARISON STUDY: Radiographs of the lumbar spine dated 04/24/2020. Abdominal CT dated 10/11/2012. TECHNIQUE: MRI of the lumbar spine is performed utilizing various T1 and T2-weighted sequences in the axial and sagittal planes. Contrast-enhanced sequences are acquired following the IV administration of 10 cc of Gadavist. The examination is compromised by motion artifact. FINDINGS: Lumbar spine: Vertebral body height and alignment are maintained throughout the lumbar spine. Marrow signal intensity is mildly heterogeneous. Small anterior and lateral marginal osteophytes are seen th roughout. The transverse and spinous processes appear intact. There is no evidence of spondylolysis. No destructive bony lesion is seen. A small hemangioma is noted in the superior endplate of L2. Intervertebral discs: Degenerative disc desiccation is seen throughout the lumbar spine. There is onl y minimal loss of height at L5-S1. Spinal cord: The visualized spinal cord is normal in morphology and signal intensity. The conus medul elza terminates at the level of L2. The nerve roots of the cauda equina are normal in morphology. No abnormal postcontrast enhancement is identified. L1-L2: Unremarkable. L2-L3: There is minimal disc bulge eccentric to the left. This causes subarticular stenosis and may a but the exiting left L2 nerve root. The central canal is clear. The neural foramina are patent. L3-L4: There is broad-based posterior disc bulge. This causes mild central canal stenosis with a mini mum AP diameter of 8 mm. There is bilateral subarticular stenosis, left greater than right. This may abut the exiting bilateral L3 nerve roots. In conjunction with facet hypertrophy this causes mild ben ateral neural foraminal stenosis. L4-L5: There is minimal posterior disc bulge. The central canal is clear. There is bilateral subartic ular stenosis, left greater than right. This likely impinges on the exiting bilateral L4 nerve roots. In conjunction with facet arthropathy there is moderate to severe left greater than right neural for aminal stenosis. There are bilateral facet joint effusions. L5-S1: There is broad-based posterior disc bulge. This causes bilateral subarticular stenosis and may abut the exiting bilateral L5 nerve roots. In conjunction with facet arthropathy there is moderate b ilateral neural foraminal stenosis. There are bilateral facet joint effusions. Sacrum: The visualized sacrum is normal in morphology and signal intensity. Soft tissues: The paraspinous soft tissues are normal as imaged. The visualized retroperitoneal struc tures are grossly unremarkable but incompletely evaluated. IMPRESSION: 1. Mild multilevel lumbosacral spondylosis as above. See discussion for detailed level by level terra sis. 2. There is no high-grade stenosis of the central canal. 3. No destructive bony lesion is seen. Dictated: 04/25/2020 7:33 AM Transcribed: 04/25/2020 8:38 AM Desiree [id number] [facility] Electronically signed by: Tremayne Mendez M.D. 04/25/2020 8:52 AM
--- NOTE | 2020-04-25 09:08 | XRay Report ---
SINGLE VIEW CHEST CLINICAL HISTORY: Dyspnea. FINDINGS: An AP, portable, upright chest radiograph is compared to chest x-ray and chest CT dated 11/29. The examination is degraded by portable technique and patient rotation. The cardiomediastinal silhouette is unremarkable. Emphysema and chronic interstitial thickening are similar to previous. B ibasilar airspace opacities are similar to previous and likely represents scarring/atelectasis. No la rge pleural effusion or pneumothorax is seen. The skeletal structures are osteopenic. The bony thorax is grossly intact. IMPRESSION: 1. Emphysema. 2. Bibasilar opacities are similar to previous and likely represents scarring/atelectasis. Clinical c orrelation will be required. ACT 112: Negative or not required by law. Electronically signed by: Tremayne Mendez M.D. 04/25/2020 9:06 AM
[2020-04-25 09:14] LABS: Appearance Urine Clear (Clear); Bilirubin Urine Negative (Negative); Blood Urine Negative (Negative); Color Urine Yellow; Glucose Urine UA Negative (Negative); Ketones Urine Negative (Negative); Leukocyte Esterase Urine Negative (Negative); Nitrite Urine Negative (Negative); Protein Urine Negative (Negative); Specific Gravity Urine 1.018 (1.000-1.030); Urobilinogen Urine Negative (Negative); pH Urine 6.5 (4.5-7.5)
[2020-04-25 09:59] LABS: Estimated Average Glucose 169 mg/dl; Hemoglobin A1C 7.5 % (4.5-5.6)
[2020-04-25] MEDS ORDERED: INSULIN GLARGINE SOLOSTAR 100 UNITS/ML 3 ML PEN SQ ONE (10:30)
--- NOTE | 2020-04-25 10:37 | Pharmacy Report ---
Glycemic Control Consultation - Date of Service April 25, 2020 - Scope Scope: Glycemic Pharmacist consulted for glycemic control and to write orders per [facility] inpatient glycemic control protocol. - Objective Weight: 113.852 kg Accuchecks BSG (last 24hrs): 04/24/20 04/24/20 04/25/20 16:13 20:43 00:01 Glucose 165 H POC Glucose 210 H 230 H 04/25/20 04/25/20 04/25/20 03:56 06:21 07:36 Glucose 185 H POC Glucose 201 H 166 H Laboratory Data (last 24hrs): 04/24/20 04/25/20 16:13 06:21 Potassium 3.7 4.1 Carbon Dioxide 29 26 Anion Gap 5.0 5.0 Creatinine 0.87 0.89 Est Cr Clr Drug Dosing 85.9 85.2 HbA1c: Hemoglobin A1c 7.5 % (4.5-5.6) H 04/25/20 06:21 - Recent Pertinent Medications Outpatient Anti-diabetic Regimen: * Lantus 40 units SC qPM * Trilicity * A1c = 7.5% on 04/25/20 The patient is currently receiving: * Basal insulin: Lantus 20 units x1 and NPH 20 units x1 04/24 PM * Correctional Insulin: Novolog Correction per scale ACHS Goal Range: Low 110 mg/dL - High 140 mg/dL Correction Factor: 15 mg/dL/unit * Prandial insulin: Per carb ratio of 1 unit per 5 grams CHO consumed Risk Factors for Insulin Resistance: * Steroids: methylprednisolone 125 mg IV x1 04/24 PM. No current ongoing steroids ordered * Recent Surgery: consulting ortho/spine - need to rule out cauda equina * Diet: NPO - Assessment & Plan Assessment & Plan: ASSESSMENT: * 60 yo F with T2DM and adequate outpatient control per current HbA1c admitted with acute hip pain and need to rule out cauda equina. Ortho/spine consulted - awaiting recs. Patient remains NPO for now. * Will scale back on Novolog parameters as effects of steroids administered yesterday PM likely dissipating * OK to give low-dose Lantus this AM despite NPO as BSG is above goal range and NPH effects from yesterday PM wearing off. Plan to give (likely) larger dose tonight depending on BSG and ordered diet PLAN FOR INPATIENT GLYCEMIC CONTROL: * Basal insulin * Lantus 10 units SQ x1 now. Additional 10-30 units SC tonight depending on BSG. See MAR for details. * Bolus insulin * NovoLog per scale ACHS or Q6hrs while NPO * Goal Range: Low 110 mg/dL - High 140 mg/dL * Correction Factor: 20 mg/dL/unit * Nutritional / Prandial insulin per carb ratio of 1 unit per 7 grams CHO consumed * Please note that the plan above was derived based on current level of insulin resistance and hospital stress. These recommendations are appropriate for i npatient admission only. Plan of care upon discharge will need to be reassessed to avoid potential outpatient hypo/hyperglycemia. Thank you.
--- NOTE | 2020-04-25 12:58 | Orthopedic Consultation ---
Date of Consultation April 25, 2020 Assessment & Plan (1) Lumbar disc herniation with radiculopathy: Review of the MRI demonstrates what I suspect is a small foraminal disc herniation at L4-5 on the left. There is clear encroachment of the exiting L4 nerve root. This would be concordant with her symptom complex and presentation. She does have facet arthropathy and multilevel degenerative disc disease. I reviewed my thoughts with the patient. I suspect she will improve with a course of transforaminal epidural injections and not require any surgical intervention at this time. Present on Admission?: Yes History of Present Illness Reason for Consultation: Left leg pain Attending Physician: Tony Dutton MD History of Present Illness This is a 60-year-old female with states she had left leg symptoms for approximately 3 weeks. She denies any specific trauma fall or event. She states however the last few days the symptoms became severe. She describes symptoms involving left buttock posterior thigh extending into the anterior tibia. It radiates into her groin. It markedly limits her ability to stand and ambulate secondary to pain and breakaway weakness. The right lower extremity is asymptomatic at this time. Allergies Allergy/AdvReac Type Severity Reaction Status Date / Time codeine AdvReac Mild N/V Verified 04/24/20 17:34 varenicline AdvReac Mild NIGHTMARES Verified 04/24/20 17:34 Home Medications Home Medications Medication Instructions Recorded Confirmed Type albuterol sulfate 2 inh INHALATION Q6H PRN 08/21/18 04/24/20 History duloxetine 60 mg PO BID 08/21/18 04/24/20 History furosemide 20 mg PO DAILY PRN 08/21/18 04/24/20 History omeprazole 20 mg PO QAM PRN 08/21/18 04/24/20 History simvastatin 20 mg PO HS 08/21/18 04/24/20 History Lantus U-100 Insulin 40 unit SUBCUT QPM 10/28/18 04/24/20 History Trulicity 1.5 mg SUBCUT MO 10/28/18 04/24/20 History gabapentin [Neurontin] 800 mg PO TID 10/28/18 04/24/20 History levothyroxine [Synthroid] 150 mcg PO QAM 10/28/18 04/24/20 History quetiapine [Seroquel] 100 mg PO HS 03/27/19 04/24/20 History lorazepam [Ativan] 1 mg PO BID 09/23/19 04/24/20 History topiramate [Topamax] 25 mg PO BID 09/23/19 04/24/20 History ondansetron HCl [Zofran] 4 mg PO BID PRN 11/30/19 04/24/20 History Medical Marijuanna 1 dose INHALATION DAILY PRN 03/03/20 04/24/20 History hydroxyzine pamoate 50 mg PO TID 04/24/20 04/24/20 History Patient History Medical History (Updated 04/25/20 @ 12:57 by Bc Mejias DO) Anxiety Chronic obstructive pulmonary disease Depression Diabetes mellitus, type 2 Fibromyalgia GERD (gastroesophageal reflux disease) History of falling 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 Hx of hepatitis C treated HX: breast cancer 2012 LEFT - radiation and lumpectomy and oral chemo Hyperlipidemia Hypertension taking med for precaution with diabetes Medical marijuana use Osteoarthritis Peripheral neuropathy LEGS - BOTH FEET Schizoaffective disorder Surgical History History of ankle surgery RT ANKLE X 3 History of bilateral tubal ligation History of cholecystectomy History of colonoscopy History of dilatation and curettage History of esophagogastroduodenoscopy (EGD) History of hysterectomy History of lumpectomy of left breast History of open reduction and internal fixation (ORIF) procedure RIGHT ANKLE History of surgery TO REMOVE CALCIUM DEPOSIT FROM BACK History of tooth extraction all teeth Family History Father Family history of diabetes mellitus Other No family history of adverse response to anesthesia Social History Smoking Status: Current every day smoker Tobacco Type: Cigarettes Cigarettes Per Day: 12; Second Hand Exposure: No; Hx Alcohol Use: No Hx Substance Use: Yes (USES 2-3X WEEK) Last Used Substance Other:: medical marijuanna Substance Use Type Other:: (ADVISED) Preferred Language: [place] Communication Ability: Effective 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 She exhibits no gross tension signs with straight leg raising bilaterally. She has a plus out of 5 bilateral plantar flexion dorsiflexion quadricep. She is negative logroll. Sensory appears to be symmetric and intact. Results & Data ([facility]) Vital Signs (Past 12 Hours) Vital Signs Temp Pulse Pulse Resp BP BP Pulse Ox 04/25/20 10:55 36.8 C 82 20 149/85 H 90 04/25/20 07:51 36.8 C 77 20 150/84 H 91 04/25/20 05:06 36.4 C L 51 L 20 116/69 94 04/25/20 01:51 86
--- NOTE | 2020-04-25 19:39 | Hospitalist Progress Note ---
Date of Service April 25, 2020 Assessment & Plan (1) Acute hip pain: (2) Lumbar disc herniation with radiculopathy: Present on admission with low back pain and left leg pain Lumbar xray showed no acute lumbar spine fracture or subluxation. [id number] multilevel degenerative changes within the lumbar spine. Left hip xray showed no acute fracture within the pelvis or hips. Mild left hip osteoarthritis. MRI lumbar showed Mild multilevel lumbosacral spondylosis. There is no high- grade stenosis of the central canal Ortho on board Case discussed with Dr. Mejias that recommended no surgical intervention Pain management consult for transforaminal epidural injections Continue pain with morphine Continue PT/OT evaluation N.p.o. after midnight (2) Diabetes mellitus: Hemoglobin A1c on 04/01/2020 was 7.4 Continue with Lantus and sliding scale NovoLog Last injection of Trulicity was 1 week ago on Saturday Continue to hold Trulicity during hospital course Continue monitor BS (3) Fibromyalgia: Tramadol Gabapentin Continue home meds (4) Hypothyroidism: Continue levothyroxine 175 mcg daily (5) Schizoaffective disorder: Continue home medications Monitor for prolonged QTC Further management outpatient (6) HTN (hypertension): BP has been fluctuated Continue monitor BP (7) DVT prophylaxis: SCDs for now (anticipate transforaminal injection) Code status Full code Admission and Anticipated Discharge Date Admission Date: April 24, 2020 Subjective Pt was seen and examined Lying in bed with no distress Pt said that morphine helps with her pain Denies any chest pain, palpitation, dizziness and SOB Physical Exam Physical Exam: General- No acute distress Head- atraumatic Eyes- PERRL, EOMI, ENT- oropharynx clear Neck- supple, no JVD Lungs- clear to auscultation Heart- regular rhythm; no murmur Abdomen- normal bowel sounds, soft, nontender Extremities- no calf tenderness Neuro- alert, oriented x 3; PERRL, EOMI; no facial palsy; no dysarthria Skin- warm & dry Results & Data Results & [facility]) Vital Signs (Past 12 Hours) Vital Signs Temp Pulse Resp BP BP Pulse Ox 04/25/20 19:23 36.8 C 78 18 145/92 H 92 04/25/20 15:16 37 C 79 18 121/63 93 04/25/20 10:55 36.8 C 82 20 149/85 H 90 04/25/20 07:51 36.8 C 77 20 150/84 H 91 (1) Acute hip pain Laterality: left Qualified Code(s): M25.552 - Pain in left hip
[2020-04-25] MEDS: LIDOCAINE 5% 1 PATCH TD SCH (20:38)
[2020-04-25] MEDS: QUETIAPINE FUMARATE 100 MG TABLET PO SCH (20:39)
[2020-04-25] MEDS: SIMVASTATIN 20 MG TAB PO SCH (20:39)
[2020-04-25] MEDS: INSULIN GLARGINE SOLOSTAR 100 UNITS/ML 3 ML PEN SQ SCH (20:45)
[2020-04-25] MEDS: TRAMADOL HCL 50 MG TABLET PO PRN (23:55)
[2020-04-26] MEDS ORDERED: ALBUT/IPRATROP 3MG/0.5MG NEB 3 ML VIAL NEB STA (03:19)
[2020-04-26] MEDS ORDERED: ALBUT/IPRATROP 3MG/0.5MG NEB 3 ML VIAL NEB PRN (03:19)
--- NOTE | 2020-04-26 03:21 | Communication Note ---
Date of Service: April 26, 2020
[2020-04-26 04:18] LABS: Base Excess ABG 3.5 mEq/L (-9-1.8); HCO3 ABG 29 mmol/L (19-24); PCO2 ABG 48 mmHg (35-46); PO2 ABG 62 mmHg (80-95)
[2020-04-26 04:21] LABS: Allen Test POS (Pos)
[2020-04-26 04:25] LABS: Partial Thromboplastin Ratio 0.8; Partial Thromboplastin Time 23.6 Seconds (21.0-31.0)
[2020-04-26 04:34] LABS: BUN Creatinine Ratio 16.2 (10-20); Calcium 8.1 mg/dl (8.5-10.1); Creatinine Clr Calc Pharmacy 85.2 ml/min; Est GFR (African American) 82.8; Est GFR (Non-African American) 71.4; Magnesium 2.1 mg/dl (1.8-2.4); Potassium 3.6 mmol/L (3.5-5.1)
[2020-04-26] MEDS ORDERED: POTASSIUM CHLORIDE PWD 20 MEQ PACK PO STA (05:00)
[2020-04-26 05:12] LABS: Basophils # (auto) 0.02 K/uL (0-0.2); Basophils % (auto) 0.2 %; Eosinophils # (auto) 0.41 K/uL (0-0.5); Eosinophils % (auto) 3.4 %; Hematocrit (blood only) 37.3 % (37-47); Immature Granulocytes # (auto) 0.03 K/uL (0.00-0.02); Immature Granulocytes % (auto) 0.2 %; Lymphocytes # (auto) 4.31 K/uL (1.2-3.4); Lymphocytes % (auto) 35.8 %; Mean Corpuscular Hemoglobin 28.8 pg (25-34); Mean Corpuscular Volume 89.4 fL (80-100); Mean Platelet Volume 8.9 fL (7.4-10.4); Monocytes # (auto) 0.74 K/uL (0.11-0.59); Monocytes % (auto) 6.2 %; Neutrophils # (auto) 6.52 K/uL (1.4-6.5); Neutrophils % (auto) 54.2 %; Platelet Count 266 K/uL (130-400); RDW Coefficient of Variation 15.7 % (11.5-14.5); RDW Standard Deviation 51.1 fL (36.4-46.3); Red Blood Count 4.17 M/uL (4.2-5.4); White Blood Count 12.03 K/uL (4.8-10.8)
[2020-04-26 05:20] LABS: Mean Corpuscular Hgb Conc 32.2 g/dL (32-36)
[2020-04-26] MEDS ORDERED: POTASSIUM CHLORIDE 20 MEQ TABCR PO STA (06:09)
[2020-04-26] MEDS: LEVOTHYROXINE SODIUM 175 MCG TABLET PO SCH (06:44)
[2020-04-26] MEDS ORDERED: Nursing to Pharmacy Communication SCH ×2 (07:00→14:45)
[2020-04-26] MEDS: DEXTROSE 5% 1,000 ML IV SCH (07:15)
--- NOTE | 2020-04-26 08:02 | XRay Report ---
XR chest 1V portable CLINICAL HISTORY: Hypoxia COMPARISON STUDY: 04/25/2020 FINDINGS: The heart is normal in size. There is mild chronic interstitial thickening. There is no foc al pulmonary consolidation. There are no pleural effusions. Slightly prominent basilar markings remai n unchanged.[ IMPRESSION: No significant change from the preceding study. No evidence of lobar consolidation. Stabl e mild interstitial thickening with a basilar predominance ACT 112: Negative or not required by law. Electronically signed by: Sukhi Lebron M.D. 04/26/2020 8:01 AM
[2020-04-26] MEDS: DICLOFENAC SOD 1% GEL 100 GM TUBE EXT SCH ×2 (08:25→20:55)
[2020-04-26] MEDS: LORazepam 1 MG TAB PO SCH ×2 (08:25→20:54)
[2020-04-26] MEDS: GABAPENTIN 800 MG TAB PO SCH ×3 (08:25→20:50)
[2020-04-26] MEDS: CYCLOBENZAPRINE HCL 10 MG TAB PO SCH ×3 (08:25→20:49)
[2020-04-26] MEDS: TOPIRAMATE 25 MG TAB PO SCH ×2 (08:25→20:51)
[2020-04-26] MEDS: TRAMADOL HCL 50 MG TABLET PO PRN (08:25)
[2020-04-26] MEDS: DULOXETINE HCL 60 MG CAP PO SCH (08:25)
--- NOTE | 2020-04-26 08:53 | Pain Management Consultation ---
Date of Consultation April 26, 2020 Assessment & Plan (1) Lumbar disc herniation with radiculopathy: Plan for a left L4-5 transforaminal epidural steroid injection in the OR. Procedure was explained to the patient and she would like to proceed. Plan for the procedure this afternoon by Dr. Oquendo. History of Present Illness Attending Physician: Tony Dutton MD History of Present Illness This is a 60-year-old female that has been seen at the [facility] for lumbar radiculopathy. Patient states the pain has been ongoing for approximately 3 weeks without any known injury. Pain is located along the low back and radiates along the lateral anterior leg to the ankle. She describes an aching, burning sensation. Pain is aggravated with standing, walking. No alleviating symptoms. Previous treatment includes Tylenol, ibuprofen, ice, heat. She does chronically take Cymbalta 60 mg 12 days daily and gabapentin 800 mg 3 times daily. She is using a scooter to ambulate around her house. Dr. Mejias did evaluate and did not recommend surgical intervention at this time. Patient is receiving Tramadol and Morphine for pain relief. She is having some bladder incontinence. No bowel incontinence, leg weakness, saddle anesthesia, foot drop, or falls. Case discussed with Dr. Oquendo Pain Assessment Full Body Front + Back: 1. 2. 3. 4. Allergies Allergy/AdvReac Type Severity Reaction Status Date / Time codeine AdvReac Mild N/V Verified 04/24/20 17:34 varenicline AdvReac Mild NIGHTMARES Verified 04/24/20 17:34 Home Medications Home Medications Medication Instructions Recorded Confirmed Type albuterol sulfate 2 inh INHALATION Q6H PRN 08/21/18 04/24/20 History duloxetine 60 mg PO BID 08/21/18 04/24/20 History furosemide 20 mg PO DAILY PRN 08/21/18 04/24/20 History omeprazole 20 mg PO QAM PRN 08/21/18 04/24/20 History simvastatin 20 mg PO HS 08/21/18 04/24/20 History Lantus U-100 Insulin 40 unit SUBCUT QPM 10/28/18 04/24/20 History Trulicity 1.5 mg SUBCUT MO 10/28/18 04/24/20 History gabapentin [Neurontin] 800 mg PO TID 10/28/18 04/24/20 History levothyroxine [Synthroid] 150 mcg PO QAM 10/28/18 04/24/20 History quetiapine [Seroquel] 100 mg PO HS 03/27/19 04/24/20 History lorazepam [Ativan] 1 mg PO BID 09/23/19 04/24/20 History topiramate [Topamax] 25 mg PO BID 09/23/19 04/24/20 History ondansetron HCl [Zofran] 4 mg PO BID PRN 11/30/19 04/24/20 History Medical Marijuanna 1 dose INHALATION DAILY PRN 03/03/20 04/24/20 History hydroxyzine pamoate 50 mg PO TID 04/24/20 04/24/20 History Patient History Medical History Anxiety Chronic obstructive pulmonary disease Depression Diabetes mellitus, type 2 Fibromyalgia GERD (gastroesophageal reflux disease) History of falling 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 Hx of hepatitis C treated HX: breast cancer 2013 LEFT - radiation and lumpectomy and oral chemo Hyperlipidemia Hypertension taking med for precaution with diabetes Medical marijuana use Osteoarthritis Peripheral neuropathy LEGS - BOTH FEET Schizoaffective disorder Surgical History History of ankle surgery RT ANKLE X 3 History of bilateral tubal ligation History of cholecystectomy History of colonoscopy History of dilatation and curettage History of esophagogastroduodenoscopy (EGD) History of hysterectomy History of lumpectomy of left breast History of open reduction and internal fixation (ORIF) procedure RIGHT ANKLE History of surgery TO REMOVE CALCIUM DEPOSIT FROM BACK History of tooth extraction all teeth Family History Father Family history of diabetes mellitus Other No family history of adverse response to anesthesia Social History Smoking Status: Current every day smoker Tobacco Type: Cigarettes Cigarettes Per Day: 12; Second Hand Exposure: No; Hx Alcohol Use: No Hx Substance Use: Yes (USES 2-3X WEEK) Last Used Substance Other:: medical marijuanna Substance Use Type Other:: (ADVISED) Preferred Language: Croatian Communication Ability: Effective Learning Design Specialist Required: No Beliefs That Will Affect Care: None Current Living Situation: Alone Current Living Situation Comment: friends stay Feels Safe at Home: Yes Safety Concerns: Feels Safe At This Time Assistive Devices: None Physical Exam Physical Exam: GENERAL: This is a 60 year old morbidly obese female. Does not appear in acute distress. HEAD/FACE: Normocephalic and atraumatic. EYES: No drainage or conjunctival injection. ENT: Nose without bleeding or discharge. Oral mucosa moist. + all teeth have been extracted. NECK: Full ROM without apparent pain. RESPIRATORY: Patient with unlabored breathing. No signs of respiratory distress. CHEST/AXILLA: Chest movement symmetrical. No deformities noted. BACK: Limited ROM due to body habitus. Mild tenderness along the L4 region. Mild tenderness of the left SI joint. No myofascial spasm or trigger points noted. SKIN: [place], warm and dry. No rash noted. MS/EXTREMITY: Equivocal straight leg raise on the left. There is no tenderness of the left leg. 5/5 strength of the legs. Mild pain with left hip ROM. NEURO: Alert and appears oriented. Speech is fluent. Cranial Nerves are grossly intact. PSYCH: Alert, pleasant, affect is calm Results ([facility]) Diagnostic Review MRI Findings: MRI OF THE LUMBAR SPINE COMBO CLINICAL HISTORY: Left lower extremity weakness. Urinary incontinence. COMPARISON STUDY: Radiographs of the lumbar spine dated 04/24/2020. Abdominal CT dated 10/11/2012. TECHNIQUE: MRI of the lumbar spine is performed utilizing various T1 and T2- weighted sequences in the axial and sagittal planes. Contrast-enhanced sequences are acquired following the IV administration of 10 cc of Gadavist. The examination is compromised by motion artifact. FINDINGS: Lumbar spine: Vertebral body height and alignment are maintained throughout the lumbar spine. Marrow signal intensity is mildly heterogeneous. Small anterior and lateral marginal osteophytes are seen throughout. The transverse and spinous processes appear intact. There is no evidence of spondylolysis. No destructive bony lesion is seen. A small hemangioma is noted in the superior endplate of L2. Intervertebral discs: Degenerative disc desiccation is seen throughout the lumbar spine. There is only minimal loss of height at L5-S1. Spinal cord: The visualized spinal cord is normal in morphology and signal i ntensity. The conus medullaris terminates at the level of L2. The nerve roots of the cauda equina are normal in morphology. No abnormal postcontrast enhancement is identified. L1-L2: Unremarkable. L2-L3: There is minimal disc bulge eccentric to the left. This causes subarticular stenosis and may abut the exiting left L2 nerve root. The central canal is clear. The neural foramina are patent. L3-L4: There is broad-based posterior disc bulge. This causes mild central canal stenosis with a minimum AP diameter of 8 mm. There is bilateral subarticular stenosis, left greater than right. This may abut the exiting bilateral L3 nerve roots. In conjunction with facet hypertrophy this causes mild bilateral neural foraminal stenosis. L4-L5: There is minimal posterior disc bulge. The central canal is clear. There is bilateral subarticular stenosis, left greater than right. This likely impinges on the exiting bilateral L4 nerve roots. In conjunction with facet arthropathy there is moderate to severe left greater than right neural foraminal stenosis. There are bilateral facet joint effusions. L5-S1: There is broad-based posterior disc bulge. This causes bilateral subarticular stenosis and may abut the exiting bilateral L5 nerve roots. In conjunction with facet arthropathy there is moderate bilateral neural foraminal stenosis. There are bilateral facet joint effusions. Sacrum: The visualized sacrum is normal in morphology and signal intensity. Soft tissues: The paraspinous soft tissues are normal as imaged. The visualized retroperitoneal structures are grossly unremarkable but incompletely evaluated. IMPRESSION: 1. Mild multilevel lumbosacral spondylosis as above. See discussion for detailed level by level analysis. 2. There is no high-grade stenosis of the central canal. 3. No destructive bony lesion is seen. Dictated: 04/25/2020 7:33 AM Transcribed: 04/25/2020 8:38 AM Desiree [id number] [email or web address] Electronically signed by: Tremayne Mendez M.D. 04/25/2020 8:52 AM
[2020-04-26] MEDS ORDERED: INSULIN ASPART 100 UNITS/ML 3 ML PEN SC SCH (12:00)
[2020-04-26] MEDS ORDERED: LIDOCAINE/EPINE 2% 1:100,000 20ML ONE (12:55)
[2020-04-26] MEDS ORDERED: TRIAMCINOLONE ACET 40 MG/ML VIAL ONE (12:55)
[2020-04-26] MEDS ORDERED: IOPAMIDOL INJ 61% 15 ML VIAL ONE (12:55)
--- NOTE | 2020-04-26 13:33 | History & Physical Bridge Note ---
Date of Service April 26, 2020 History & Physical Bridge Note I have examined the patient, reviewed the History & Physical and in the interval since the performance of the History & Physical I have noted the following changes of clinical significance: no changes noted
[2020-04-26] MEDS ORDERED: LIDOCAINE HCL 2% (LOCAL) INJ 50 ML VIAL ONE (13:45)
--- NOTE | 2020-04-26 13:59 | Pharmacy Report ---
Pharmacy Glycemic Short Note 2 - Date of Service April 26, 2020 - Glycemic Short BSG Results (Last 24 hours): 04/25/20 04/25/20 04/26/20 16:40 20:43 04:00 Glucose 75 POC Glucose 155 H 114 H 04/26/20 04/26/20 06:47 11:34 Glucose POC Glucose 77 81 Outpatient Anti-diabetic Regimen: * Lantus 40 units SC qPM * Trilicity * A1c = 7.5% on 04/25/20 The patient is currently receiving: * Basal insulin: Lantus 10 units x1 04/25 AM and 20 units x1 04/25 PM * Correctional Insulin: Novolog Correction per scale ACHS Goal Range: Low 110 mg/dL - High 140 mg/dL Correction Factor: 20 mg/dL/unit * Prandial insulin: Per carb ratio of 1 unit per 7 grams CHO consumed Risk Factors for Insulin Resistance: * IVF: D5W @ 40 mL/hr * Surgery: plan for epidural steroid injection today * Diet: NPO ASSESSMENT: 04/26 * NPO for possible procedure today * No hypoglyucemic events noted, but BSG's remain on the low side despite low- rate D5W infusion * Will significantly scale back on Lantus tonight - either holding or no more than 1/2 of previous total daily dose 04/25 * 60 yo F with T2DM and adequate outpatient control per current HbA1c admitted with acute hip pain and need to rule out cauda equina. Ortho/spine consulted - awaiting recs. Patient remains NPO for now. * Will scale back on Novolog parameters as effects of steroids administered yesterday PM likely dissipating * OK to give low-dose Lantus this AM despite NPO as BSG is above goal range and NPH effects from yesterday PM wearing off. Plan to give (likely) larger dose tonight depending on BSG and ordered diet PLAN FOR INPATIENT GLYCEMIC CONTROL: * Hold outpatient oral diabetes medications * Basal insulin * Lantus 0-15 units SQ HS based on BSG * Bolus insulin * NovoLog per scale ACHS or Q6hrs while NPO * Goal Range: Low 110 mg/dL - High 140 mg/dL * Correction Factor: 25 mg/dL/unit * Nutritional / Prandial insulin per carb ratio of 1 unit per 8 grams CHO consumed
--- NOTE | 2020-04-26 14:02 | Operative Report ---
Post Operative Report Pre & Post Diagnosis Operation Date: 04/26/20 07:00 Pre-Op Diagnosis: Lumber Disk Herniation with Radiculopathy Post-Op Diagnosis: Lumber Disk Herniation with Radiculopathy I identified the patient and participated in the time-out.: Yes Procedure Operation Date: 04/26/20 07:00 Actual Procedures Left L4-L5 Transforaminal Epidural Injection - Seth Oquendo MD, JOZEF Surgeon Seth Oquendo MD, JOZEF Metal Pourer None Estimated Blood Loss 0 Findings Consistent with Post-Op Diagnosis Specimens None Drains None Anesthesia Type Local Complications none Disposition Accompanied Patient To Recovery: No Disposition: Recovery Room Description of Procedure LUMBAR TRANSFORAMINAL EPIDURAL STEROID INJECTION Diagnosis: Herniated disc with lumbar radiculopathy Level injected: Left L4/L5 transforaminal epidural steroid injection Surgeon: Dr. Oquendo Prior to starting, the Patients diagnosis and the procedure were reviewed with the patient in detail. Possible risks, complications and alternative therapies were also reviewed. Patients questions were answered. Informed consent was obtained. Allergies and medication list was reviewed. The patient was brought to the fluoroscopy room and placed in prone position on the table. Immediately prior to starting the procedure, a ``time out was conducted with the staff and the patient where the patient was identified, proposed procedure was verified, consent was reviewed and the proper site for the planned procedure was identified. Fluoroscopy was utilized in performing the procedure to assist the placement of the needle, to evaluate the final position of the needle prior to injection and to avoid intravascular injection. Monitors used included intermittent blood pressure with automated device, continuous pulse oximetry and level of consciousness. Patient was not given any intravenous sedation and constant verbal contact was maintained throughout the procedure. Biplanar fluoroscopy was used to assist in placement of the needle as well as to evaluate final needle position prior to the injection. On examination, no signs of skin breakdown or infection were noted at the injection site. Lumbar-sacral area was prepped with DuraPrep followed by Betadine solution. Sterile drapes were applied. The appropriate interspace and disk was identified in a true AP view. The fluoroscope was then rotated to obtain a decubitus view in such a manner so that the superior articular process of the inferior vertebra was bisecting the pars inter-articularis of the vertebra above in two. A 22 Gauge 7 inch curved (15 degrees) spinal needle was inserted through the skin and subcutaneous tissues, after infiltration of 2 cc of 2% Xylocaine MPF, and advanced in a co-axial technique. Needle tip was first placed on the infero-lateral margin of the pars inter-articularis. Once the bony margin was contacted, the C-arm was rotated to obtain a lateral view. The needle was slowly ``walked off the bone and advanced toward the anterior and superior aspect of the foramen. Patient did not experience any pain or paresthesia. Six inch micro bore tubing was attached to the needle and aspiration did not demonstrate CSF or blood. AP view was checked to ensure the needle tip was in close proximity to the nerve root in the proximal neural foramen lateral to the inferior articular process and in the 6 oclock position. 1 cc of Isovue 300 contrast was injected via the needle under live fluoroscopy. Spread of the contrast was noted in the epidural space and along the nerve r oot. Neither subdural or subarachnoid spread nor intravascular uptake was noted on plain fluoroscopy. Approximately 10 second digital subtraction angiogram at 8 f/s rate was done in AP view with additional contrast. No vascular uptake was noted. Next 80 mg of Kenalog was injected followed by 2 cc of 2% Xylocaine MPF to flush the needle. The patient did not experience pain during the injection. Adequate hemostasis was noted. A sterile Band-Aid was applied to the injection site. Patient was monitored for 30 minutes and discharged with an accompanying adult. Discharge instructions were reviewed with the patient/caregiver. Any specific questions were answered. Patient/caregiver voiced understanding of the instructions. Follow-up appointment has been scheduled. I attest to the content of the Intraoperative Record and any orders documented therein. Any exceptions are noted below.
[2020-04-26] MEDS: MoRPHine SULFATE 2 MG/ML CARP IV PRN ×2 (14:25→21:17)
[2020-04-26] MEDS: INSULIN ASPART 100 UNITS/ML 3 ML PEN SC SCH ×2 (16:33→20:58)
--- NOTE | 2020-04-26 20:38 | Hospitalist Progress Note ---
Date of Service April 26, 2020 Assessment & Plan (1) Acute hip pain: (2) Lumbar disc herniation with radiculopathy: Present on admission with low back pain and left leg pain Lumbar xray showed no acute lumbar spine fracture or subluxation. Gyrr-[id number]-[id number] multilevel degenerative changes within the lumbar spine. Left hip xray showed no acute fracture within the pelvis or hips. Mild left hip osteoarthritis. MRI lumbar showed Mild multilevel lumbosacral spondylosis. There is no high- grade stenosis of the central canal Ortho on board Case discussed with Dr. Mejias that recommended no surgical intervention Pain management on board Left L4-L5 Transforaminal Epidural Injection performed today by Seth Oquendo MD, FIPP Continue pain with morphine Continue PT/OT evaluation (2) Diabetes mellitus: Hemoglobin A1c on 04/01/2020 was 7.4 Continue with Lantus and sliding scale NovoLog Last injection of Trulicity was 1 week ago on Saturday Continue to hold Trulicity during hospital course Continue monitor BS (3) Fibromyalgia: Tramadol Gabapentin Continue home meds (4) Hypothyroidism: Continue levothyroxine 175 mcg daily (5) Schizoaffective disorder: Continue home medications Monitor for prolonged QTC Further management outpatient (6) HTN (hypertension): BP has been fluctuated Continue monitor BP (7) DVT prophylaxis: SCDs for now (anticipate transforaminal injection) Code status Full code Disposition Possible discharge home tomorrow Admission and Anticipated Discharge Date Admission Date: April 24, 2020 Subjective Pt was seen and examined Lying in bed with no distress Pt said that last night her oxygen level was low She said that she continues to have pain Denies any chest pain, palpitation, dizziness and SOB Physical Exam Physical Exam: General- No acute distress Head- atraumatic Eyes- PERRL, EOMI, ENT- oropharynx clear Neck- supple, no JVD Lungs- clear to auscultation Heart- regular rhythm; no murmur Abdomen- normal bowel sounds, soft, nontender Extremities- no calf tenderness Neuro- alert, oriented x 3; PERRL, EOMI; no facial palsy; no dysarthria Skin- warm & dry Results & Data Results & Data ([facility]) Vital Signs (Past 12 Hours) Vital Signs Temp Pulse Resp BP BP Pulse Ox 04/26/20 18:54 36.9 C 81 20 144/85 H 93 04/26/20 15:18 36.5 C 75 18 129/78 97 04/26/20 13:12 36.6 C 75 18 119/87 93 04/26/20 10:54 36.5 C 69 18 121/81 95 (1) Acute hip pain Laterality: left Qualified Code(s): M25.552 - Pain in left hip
[2020-04-26] MEDS: QUETIAPINE FUMARATE 100 MG TABLET PO SCH (20:51)
[2020-04-26] MEDS: SIMVASTATIN 20 MG TAB PO SCH (20:52)
[2020-04-26] MEDS: LIDOCAINE 5% 1 PATCH TD SCH (20:55)
[2020-04-26] MEDS: INSULIN GLARGINE SOLOSTAR 100 UNITS/ML 3 ML PEN SQ SCH (20:57)
[2020-04-27] MEDS: LEVOTHYROXINE SODIUM 175 MCG TABLET PO SCH (05:43)
[2020-04-27] MEDS: DEXTROSE 5% 1,000 ML IV SCH (05:57)
[2020-04-27 06:24] LABS: Basophils # (auto) 0.01 K/uL (0-0.2); Basophils % (auto) 0.1 %; Eosinophils # (auto) 0.17 K/uL (0-0.5); Eosinophils % (auto) 1.4 %; Hematocrit (blood only) 43.2 % (37-47); Hemoglobin 13.5 g/dL (12.0-16.0); Immature Granulocytes # (auto) 0.02 K/uL (0.00-0.02); Immature Granulocytes % (auto) 0.2 %; Lymphocytes # (auto) 1.91 K/uL (1.2-3.4); Lymphocytes % (auto) 16.2 %; Mean Corpuscular Hgb Conc 31.3 g/dL (32-36); Mean Corpuscular Volume 89.6 fL (80-100); Mean Platelet Volume 9.3 fL (7.4-10.4); Monocytes # (auto) 0.76 K/uL (0.11-0.59); Monocytes % (auto) 6.5 %; Neutrophils # (auto) 8.89 K/uL (1.4-6.5); Neutrophils % (auto) 75.6 %; Platelet Count 327 K/uL (130-400); RDW Coefficient of Variation 15.6 % (11.5-14.5); RDW Standard Deviation 51.2 fL (36.4-46.3); Red Blood Count 4.82 M/uL (4.2-5.4); White Blood Count 11.76 K/uL (4.8-10.8)
[2020-04-27 07:14] LABS: BUN Creatinine Ratio 16.1 (10-20); Calcium 9.1 mg/dl (8.5-10.1); Creatinine Clr Calc Pharmacy 84.9 ml/min; Est GFR (African American) 83.9; Est GFR (Non-African American) 72.4; Potassium 4.3 mmol/L (3.5-5.1)
[2020-04-27] MEDS: TOPIRAMATE 25 MG TAB PO SCH (07:49)
[2020-04-27] MEDS: DULOXETINE HCL 60 MG CAP PO SCH (07:49)
[2020-04-27] MEDS: DICLOFENAC SOD 1% GEL 100 GM TUBE EXT SCH (07:50)
[2020-04-27] MEDS: CYCLOBENZAPRINE HCL 10 MG TAB PO SCH ×2 (07:50→15:13)
[2020-04-27] MEDS: GABAPENTIN 800 MG TAB PO SCH ×2 (07:50→15:14)
[2020-04-27] MEDS: TRAMADOL HCL 50 MG TABLET PO PRN (08:12)
[2020-04-27] MEDS: LORazepam 1 MG TAB PO SCH (08:13)
[2020-04-27] MEDS: INSULIN ASPART 100 UNITS/ML 3 ML PEN SC SCH ×2 (08:54→13:10)
[2020-04-27] MEDS: MoRPHine SULFATE 2 MG/ML CARP IV PRN (09:09)
--- NOTE | 2020-04-27 09:09 | Pain Management Progress Note ---
Date of Service April 27, 2020 Assessment & Plan (1) Lumbar disc herniation with radiculopathy: Patient is reporting 80% pain relief from the left L4-5 transforaminal epidural steroid injection that was performed by Dr. Oquendo yesterday. She is pleased with the results. Should the pain return, she may be a candidate for repeat injection on an outpatient basis. Admission and Anticipated Discharge Date Admission Date: April 26, 2020 Subjective This is a 60 year old female that received a left L4-5 transforaminal epidural steroid injection by Dr. Oquendo yesterday. Patient reports approximately 80% pain relief from the procedure and she is very pleased with the results. She is able to walk around the hospital room more easily than she was previously able to. There is a mild ache in the left low back. She denies any constitutional complaints or neurological symptoms. Case discussed with Dr. Brenda Lloyd Physical Exam Physical Exam: GENERAL: Speech and cognition is intact. Mood and affect is appropriate. Does not appear in acute distress. NEURO: Awake, alert, and oriented x 3. SKIN: No erythema, edema, or drainage of the injection site.
--- NOTE | 2020-04-27 18:23 | Discharge Summary ---
Date of Service April 27, 2020 Admission HPI Per Admitting Provider Attending: Dr. Marc This is a 60-year-old female with a complicated medical history including fibromyalgia, hypothyroidism, diabetes mellitus type 2, hyper tension, history of breast cancer, history of left ankle fracture, GERD, schizoaffective disorder, glaucoma, morbid obesity, medical marijuana use, posttraumatic stress disorder, obstructive lung disease, chronic cough from smoking. The patient reports that for the last 2 to 3 weeks she has had increasing left- sided pain to her hip and leg with associated pain to her lumbar region. This is been more progressive over the last 2 to 3 days to the point where she had to crawl to the bathroom. She reports that she is unable to walk at this time. She does live alone. She reports that yesterday she had to crawl to the bathroom. In addition, she reports some urinary incontinence. The pain originates in her hip and goes down her left leg. Physical examination reveals no pain with straight leg raise but she does have noticeable weakness to the left lower extremity. Sensation is intact to the toes. It appears to be equal to the right and left distal extremities with the exception of Romberg where she had minimal discomfort on the left sole of the foot. She reports no falls or trauma. She reports no injury to the left hip. She denies any fever or chills. She does not have any exquisite pain to palpation of the left hip or lumbar region of her back. She denies motor vehicle accident in the past or other traumatic injury. She denies any prior lumbar surgery. She states that she does follow with the [facility] [place] with Dr. Mathieu Dent for previous right ankle fracture and fusion. The patient does have children in the area as well as grandchildren. She denies any contact with any COVID positive patients or patients with question of symptoms. She does have 1 child that works at [employer] who has been isolated from the patient for fear of communicable disease. She denies any fever or chills. She has no loss of taste or smell. She has no other associated COVID symptoms. The patient is a lifetime smoker starting at age 15 and smoking 1 pack/day since that time to present. The patient is prescribed medical marijuana The patient denies any other illicit substance abuse or ethanol abuse The patient states that she is on disability since 2004. 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 Principal Diagnosis BACK PAIN Discharge Exam Constitutional WD/WN, vitals as above + obese Eyes PERRL, conjunctivae normal, anicteric sclerae ENMT external ear and nose normal, oropharynx normal Neck trachea midline, no thyromegaly Respiratory normal respiratory effort, lungs clear to auscultation Cardiovascular RRR, no murmur, no edema Gastrointestinal (Abdomen) normal bowel sounds, soft, nontender, no hepatosplenomegaly Musculoskeletal no cyanosis or clubbing, extremities motor strength 5/5 Skin no rashes, warm and dry Neurologic PERRL, EOMI, accommodation nl, no face palsy, no dysarthria Psychiatric A+Ox3, euthymic affect Discharge Data Allergies Allergy/AdvReac Type Severity Reaction Status Date / Time codeine AdvReac Mild N/V Verified 04/24/20 17:34 varenicline AdvReac Mild NIGHTMARES Verified 04/24/20 17:34 Consultations 04/24/20 18:18 ED Decision to Admit Routine 04/24/20 20:32 Consult Orthopedic Surgery Routine 04/25/20 12:58 Consult Pain Management Routine Procedures Performed Operation Date: 04/26/20 07:00 Actual Procedures p Left L4-L5 Transforaminal Epidural Injection(Left) - Seth Oquendo MD, FIPP Ordered Studies 04/24/20 20:28 MR lumbar spine wo/w con Urgent 04/26/20 13:30 FL fluoro for pain procedure Routine Hospital Course (1) Acute hip pain: (2) Lumbar disc herniation with radiculopathy: Present on admission with low back pain and left leg pain Lumbar xray showed no acute lumbar spine fracture or subluxation. [id number] multilevel degenerative changes within the lumbar spine. Left hip xray showed no acute fracture within the pelvis or hips. Mild left hip osteoarthritis. MRI lumbar showed Mild multilevel lumbosacral spondylosis. There is no high- grade stenosis of the central canal Ortho on board Case discussed with Dr. Mejias that recommended no surgical intervention Pain management on board Left L4-L5 Transforaminal Epidural Injection performed today by Seth Oquendo MD, FIPP significant improvement of hip pain today able to walk on hallway , no gait disturbance noted stable to be discharged home today home health /home PT arranged (2) Diabetes mellitus: Hemoglobin A1c on 04/01/2020 was 7.4 Continue with Lantus and sliding scale NovoLog (3) Fibromyalgia: Tramadol PRN Gabapentin Continue home meds (4) Hypothyroidism: Continue levothyroxine 175 mcg daily (5) Schizoaffective disorder: Continue home medications (6) HTN (hypertension): stable Code status Full code Disposition discharged home today Total Time Total Time Spent Total Time Spent (In Minutes): 35 mins Total Time Includes: Discharge Planning and Medication Reconciliation Discharge Plan Discharge Items Patient Disposition: Home - Home Health Services Reason For Visit: WEAKNESS,LEG/HIP PAIN Discharge Diagnosis: Left hip pain Activity: Resume your previous activity Non-emergency contact: Primary Care Provider Call non-emergency contact if: you have any medication questions Follow-up/Referrals: Seth Oquendo MD, FIPP [Anesthesiologist] - (FOLLOW UP NEEDED FOR HIP PAIN , REPEAT STEROID INJECTION ) Ania Rice MD [Primary Care Provider] - 05/05/20 2:20 pm (Date & Time 05/05/2020 2:20 PM Provider Ania Rice MD Department General Internal Medicine [facility] ) Diet: Heart Healthy Addtl Attending Provider Instructions: Hospital follow up with Family Physician FOLLOW UP WITH PAIN MANAGEMENT NEEDED Pending Studies at Discharge: No Stand-Alone Forms: My [employer], Smoking Cessation Medications and DC Order Prescriptions: New cyclobenzaprine 10 mg Tablet 10 mg PO TID PRN (Reason: MUSCLE PAIN) Qty: 90 RF: 0 Continued quetiapine [Seroquel] 100 mg Tablet 100 mg PO HS RF: 0 Medical Marijuanna 1 dose inhalation DAILY PRN (Reason: Pain) RF: 0 ondansetron HCl [Zofran] 4 mg Tablet 4 mg PO BID PRN (Reason: Nausea And Vomiting) RF: 0 hydroxyzine pamoate 50 mg capsule 50 mg PO TID RF: 0 duloxetine 60 mg Capsule,Delayed Release(Dr/Ec) 60 mg PO BID RF: 0 simvastatin 20 mg Tablet 20 mg PO HS RF: 0 furosemide 20 mg Tablet 20 mg PO DAILY PRN (Reason: SWELLING) RF: 0 omeprazole 20 mg Tablet,Delayed Release (Dr/Ec) 20 mg PO QAM PRN (Reason: Indigestion) RF: 0 albuterol sulfate 90 mcg/actuation Aerosol Powdr Breath Activated 2 inh INHALATION Q6H PRN (Reason: SHORT OF BREATH) RF: 0 Lantus U-100 Insulin 100 unit/mL Solution 40 unit SUBCUT QPM RF: 0 gabapentin [Neurontin] 800 mg tablet 800 mg PO TID RF: 0 levothyroxine [Synthroid] 150 mcg tablet 150 mcg PO QAM RF: 0 Trulicity 1.5 mg/0.5 mL pen injector 1.5 mg subcut MO RF: 0 topiramate [Topamax] 25 mg tablet 25 mg PO BID RF: 0 lorazepam [Ativan] 0.5 mg tablet 1 mg PO BID RF: 0 Discharge Orders: Discharge Order (Routine); Ordered 04/27/20 Ordered By: Cyn Murphy/Other Patient Handouts: Managing Type 2 Diabetes, Managing Diabetes: The A1C Test Admission Data Admit Date/Time: 04/26/20 21:03 Attending Provider: Cyn Saleh Admit Provider: Henry Marc Primary Care Provider: Ania Rice Other Providers: Henry Marc ; Bc Mejias ; Seth Oquendo ; [place]
== END 2020-04-27 21:28 | disposition home health service (06) ==
LOC: 2N 15:43 → ED 15:43 → SUATTDRO 19:44 → 2N 20:04 → SUATTDRO 04-26 21:03

== ENCOUNTER 2020-10-10 13:11 | Observation (INO) ==
[2020-10-10 13:31] LABS: Basophils # (auto) 0.03 K/uL (0-0.2); Basophils % (auto) 0.2 %; Eosinophils # (auto) 0.37 K/uL (0-0.5); Eosinophils % (auto) 2.5 %; Hematocrit (blood only) 43.6 % (37-47); Hemoglobin 14.7 g/dL (12.0-16.0); Immature Granulocytes # (auto) 0.04 K/uL (0.00-0.02); Immature Granulocytes % (auto) 0.3 %; Lymphocytes # (auto) 3.46 K/uL (1.2-3.4); Lymphocytes % (auto) 23.3 %; Mean Corpuscular Hemoglobin 30.4 pg (25-34); Mean Corpuscular Hgb Conc 33.7 g/dL (32-36); Mean Corpuscular Volume 90.1 fL (80-100); Mean Platelet Volume 9.9 fL (7.4-10.4); Monocytes # (auto) 1.42 K/uL (0.11-0.59); Monocytes % (auto) 9.6 %; Neutrophils # (auto) 9.51 K/uL (1.4-6.5); Neutrophils % (auto) 64.1 %; Platelet Count 367 K/uL (130-400); RDW Coefficient of Variation 13.8 % (11.5-14.5); RDW Standard Deviation 45.5 fL (36.4-46.3); Red Blood Count 4.84 M/uL (4.2-5.4); White Blood Count 14.83 K/uL (4.8-10.8)
[2020-10-10] MEDS ORDERED: SODIUM CHLORIDE 0.9% 1000ML 2,000 ML IV ONE (13:35)
[2020-10-10] MEDS ORDERED: ONDANSETRON INJ 2 MG/ML 2 ML VIAL IV STA (13:35)
[2020-10-10] MEDS ORDERED: MoRPHine SULFATE 4 MG/ML 1 ML CARP\\VIAL IV STA (13:35)
--- NOTE | 2020-10-10 13:54 | Emergency Department Note ---
Impression & Plan Abdominal pain, Hepatitis C, Acute pancreatitis ED Provider Note NAME: RONY MONTGOMERY AGE: 60 SEX: F : 1960 ARRIVES VIA: Ambulance INFORMANT: Patient ED PROVIDER(S): Michi Treadwell DO CHIEF COMPLAINT: Abdominal pain HPI: Patient is a 60-year-old female who presents to the ER for periumbilical epigastric abdominal pain which wraps around to the left side and goes through to the back. She describes it as sharp and stabbing pain. Associate with nausea, vomiting, and diarrhea. The vomiting has stopped since this past Saturday. The pain has been there for the past week. She seen her PCP and GI. Diarrhea has nearly abated as she took 1 dose of Imodium on Saturday. She had 1 loose bowel movement today. She was able to eat this morning. Denies any dysuria, urgency, or frequency. History of cholecystectomy. No vaginal bleeding or vaginal discharge. No other exacerbating or remitting factors. ROS: See above HPI for pertinent positives & negatives. A total of 10 systems reviewed and were otherwise negative. PAST MEDICAL HISTORY:See Below PAST SURGICAL HISTORY:See Below FAMILY HISTORY:See Below SOCIAL HISTORY:See Below HOME MEDICATIONS:See Below ALLERGIES:See Below VITALS:See Below PHYSICAL EXAMINATION: GENERAL: Sitting up in bed, alert, well appearing, well nourished, no distress, non-toxic EYE EXAM: normal conjunctiva. OROPHARYNX: no exudate, no erythema, lips, buccal mucosa, and tongue normal and mucous membranes are moist NECK: supple, no nuchal rigidity, no adenopathy, non-tender LUNGS: Clear to auscultation. Normal chest wall mechanics HEART: no murmurs, S1 normal and S2 normal ABDOMEN: abdomen soft, non-tender, normo-active bowel sounds, no masses, no rebound or guarding. UPPER EXTREMITIES: upper extremities are grossly normal. LOWER EXTREMITIES: No pitting edema. NEURO EXAM: Normal sensorium, cranial nerves II-XII grossly intact, normal speech, no gross weakness of arms, no gross weakness of legs. MEDICAL DECISION MAKING: Patient is a 60-year-old female that presents the ER for epigastric/left upper quadrant abdominal pain radiating through to the back which is been getting w orse over the past week associate with nausea vomiting. She has been struggling eaten and was able to eat a small amount of toast this morning. IV was established blood work was obtained. Labs show mild leukocytosis of 14,000. No significant anemia. BMP with an elevated glucose of 273. LFTs bilirubin and troponin was negative. Lipase was unremarkable. UA does have ketones and suggest dehydration. Covid was negative. CT abdomen pelvis shows stranding around the pancreas. Symptoms and exam does appear to be consistent with pancreatitis. Patient was updated and discharged follow-up PCP as an outpatient. Discussed with Pt concerning signs and symptoms to watch out for. Pt was instructed to follow up with their PCP and discussed with the patient their option to return to the ED at anytime for persistent or worsening symptoms. The appropriate anticipatory guidance and out-patient management, including indications for return to the emergency department, were explained at length to the patient and understood. Triage Nursing notes reviewed. Limited review of prior medical records performed Vital Signs: reviewed and remarkable for HTN and tachy Differential diagnosis: Differential diagnoses includes but is not limited to gastritis, peptic ulcer disease, GERD, gallbladder disease, pancreatitis, small bowel obstruction, acute coronary syndrome, pericarditis, ischemic bowel, irritable bowel disease, irritable bowel syndrome, appendicitis, diverticulitis, malignancy, hernia, urinary tract infection, torsion, /ectopic (if female), perforation, trauma, infectious. ER treatment provided: See below Diagnostics interpreted by me: ECG: Sinus rhythm rate of 94 Right bundle branch block Left axis No PVCs QTC 482 Cardiac Monitoring: An order was placed for continuous cardiac monitoring. The monitor shows a rate of 85 with sinus rhythm. Laboratory studies: As stated above and show below. 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 Hx of hepatitis C treated HX: breast cancer 2013 LEFT - radiation and lumpectomy and oral chemo Hyperlipidemia Hypertension taking med for precaution with diabetes Medical marijuana use Osteoarthritis Peripheral neuropathy LEGS - BOTH FEET Schizoaffective disorder Surgical History History of ankle surgery RT ANKLE X 3 History of bilateral tubal ligation History of cholecystectomy History of colonoscopy History of dilatation and curettage History of esophagogastroduodenoscopy (EGD) History of hysterectomy History of lumpectomy of left breast History of open reduction and internal fixation (ORIF) procedure RIGHT ANKLE History of surgery TO REMOVE CALCIUM DEPOSIT FROM BACK History of tooth extraction all teeth Family History Father Family history of diabetes mellitus Other No family history of adverse response to anesthesia Social History Smoking Status: Current every day smoker Tobacco Type: Cigarettes Cigarettes Per Day: 12; Second Hand Exposure: No; Hx Alcohol Use: No Hx Substance Use: Yes (USES 2-3X WEEK) Last Used Substance Other:: medical marijufairfax Substance Use Type Other:: (ADVISED) Preferred Language: Taiwanese Communication Ability: Effective Nurse Recruiter Required: No Beliefs That Will Affect Care: None Current Living Situation: Alone Current Living Situation Comment: friends stay Feels Safe at Home: Yes Assistive Devices: None Allergies Allergies Allergy/AdvReac Type Severity Reaction Status Date / Time varenicline AdvReac Intermediate NIGHTMARES Verified 10/10/20 15:17 Home Meds Home Medications Medication Instructions Recorded Confirmed albuterol sulfate 2 inh INHALATION Q6H PRN 08/21/18 10/10/20 duloxetine 60 mg PO BID 08/21/18 10/10/20 simvastatin 20 mg PO HS 08/21/18 10/10/20 Lantus U-100 Insulin 40 unit SUBCUT QPM 10/28/18 10/10/20 gabapentin [Neurontin] 800 mg PO TID PRN 10/28/18 10/10/20 quetiapine [Seroquel] 100 mg PO HS 03/27/19 10/10/20 acetaminophen [Tylenol Extra 1,000 mg PO DIRECTED PRN 04/29/20 10/10/20 Strength] Trulicity 3 mg SC WK 10/10/20 10/10/20 cyclobenzaprine 10 mg PO TID 10/10/20 10/10/20 furosemide 20 mg PO DAILY PRN 10/10/20 10/10/20 hydroxyzine HCl 25 mg PO TID PRN 10/10/20 10/10/20 levothyroxine 175 mcg PO QAM 10/10/20 10/10/20 lisinopril 2.5 mg PO QAM 10/10/20 10/10/20 melatonin 15 mg PO HS 10/10/20 10/10/20 melatonin-herbal no.233 [MidNite] 1 ea PO HS PRN 10/10/20 10/10/20 metformin 1,000 mg PO QAM 10/10/20 10/10/20 omeprazole 20 mg PO DAILY 10/10/20 10/10/20 peppermint oil [IBgard] 90 mg PO QAM 10/10/20 10/10/20 Results & Data (ED) Vital Signs Vital Signs - 24 hr 10/10/20 13:18 10/10/20 14:33 10/10/20 15:15 Temperature 37.5 C Temperature Source Oral Pulse Rate 107 H Pulse Rate [Left Finger] 94 H 94 H Pulse Rhythm Regular Pulse Rhythm [Left Finger] Regular Pulse Strength Normal Pulse Strength [Left Finger] Normal Respiratory Rate 20 20 20 Respiratory Effort / Characteristics Non-Labored Non-Labored Respiratory Depth Normal Normal Respiratory Pattern Regular Regular Blood Pressure 173/101 H Blood Pressure [Left Arm] 103/76 150/128 H Blood Pressure Mean 125 Blood Pressure Mean [Left Arm] 85 135 Blood Pressure Position Sitting Blood Pressure Position [Left Arm] Sitting Sitting Pulse Oximetry 93 98 98 Oxygen Delivery Method Room Air Room Air Sepsis Recent Fever Within 48 Hours No Sepsis New/Unexplained Change in Mental Status No Sepsis Action Taken by Nursing No Action Required 10/10/20 17:00 Temperature Temperature Source Pulse Rate Pulse Rate [Left Finger] 87 Pulse Rhythm Pulse Rhythm [Left Finger] Regular Pulse Strength Pulse Strength [Left Finger] Respiratory Rate 20 Respiratory Effort / Characteristics Non-Labored Spontaneous Respiratory Depth Normal Respiratory Pattern Regular Blood Pressure Blood Pressure [Left Arm] 114/92 Blood Pressure Mean Blood Pressure Mean [Left Arm] 99 Blood Pressure Position Blood Pressure Position [Left Arm] Pulse Oximetry 96 Oxygen Delivery Method Room Air Sepsis Recent Fever Within 48 Hours Sepsis New/Unexplained Change in Mental Status Sepsis Action Taken by Nursing Laboratory Data Result diagrams: 10/10/20 13:20 10/10/20 13:20 Lab Results 10/10/20 10/10/20 10/10/20 Range/Units 13:20 13:20 13:20 WBC 14.83 H (4.8-10.8) K/uL RBC 4.84 (4.2-5.4) M/uL Hgb 14.7 (12.0-16.0) g/dL Hct 43.6 (37-47) % MCV 90.1 (80-100) fL MCH 30.4 (25-34) pg MCHC 33.7 (32-36) g/dL RDW Std Deviation 45.5 (36.4-46.3) fL RDW Coeff of Jessy 13.8 (11.5-14.5) % Plt Count 367 (130-400) K/uL MPV 9.9 (7.4-10.4) fL Immature Gran % (Auto) 0.3 % Neut % (Auto) 64.1 % Lymph % (Auto) 23.3 % Jay % (Auto) 9.6 % Eos % (Auto) 2.5 % Baso % (Auto) 0.2 % Neut # (Auto) 9.51 H (1.4-6.5) K/uL Lymph # (Auto) 3.46 H (1.2-3.4) K/uL Jay # (Auto) 1.42 H (0.11-0.59) K/uL Eos # (Auto) 0.37 (0-0.5) K/uL Baso # (Auto) 0.03 (0-0.2) K/uL Immature Gran # (Auto) 0.04 H (0.00-0.02) K/uL Sodium 139 (136-145) mmol/L Potassium 3.9 (3.5-5.1) mmol/L Chloride 106 (98-107) mmol/L Carbon Dioxide 27 (21-32) mmol/L Anion Gap 6.0 (3-11) BUN 9 (7-18) mg/dl Creatinine 0.85 (0.6-1.2) mg/dl Est Cr Clr Drug Dosing 84.7 ml/min Est GFR ( Amer) 87.5 Est GFR (Non-Af Amer) 75.5 BUN/Creatinine Ratio 10.7 (10-20) Glucose 273 H (70-99) mg/dl Calcium 8.9 (8.5-10.1) mg/dl Total Bilirubin 0.4 (0.2-1) mg/dl AST 11 L (15-37) U/L ALT 12 (12-78) U/L Alkaline Phosphatase 93 (45-117) U/L Troponin I < 0.015 (0-0.045) ng/ml Total Protein 7.9 (6.4-8.2) gm/dl Albumin 3.2 L (3.4-5.0) gm/dl Globulin 4.7 H (2.5-4.0) gm/dl Albumin/Globulin Ratio 0.7 L (0.9-2) Lipase 277 (73-393) U/L Urine Color Urine Appearance (Clear) Urine pH (4.5-7.5) Ur Specific Garfield (1.000-1.030) Urine Protein (Negative) Urine Glucose (UA) (Negative) Urine Ketones (Negative) Urine Blood (Negative) Urine Nitrite (Negative) Urine Bilirubin (Negative) Urine Urobilinogen (Negative) Ur Leukocyte Esterase (Negative) Urine WBC (Auto) (0-5) /hpf Urine RBC (Auto) (0-4) /hpf U Hyaline Cast (Auto) (0-5) /lpf U Epithel Cells (Auto) (0-5) /lpf Urine Bacteria (Auto) (Negative) Granular Casts (0) /lpf Urine Mucus (None Prsent) COVID-19 Eval Order SARS-CoV-2, RNA, NAAT (NEGATIVE) 10/10/20 10/10/20 10/10/20 Range/Units 15:12 15:51 15:51 WBC (4.8-10.8) K/uL RBC (4.2-5.4) M/uL Hgb (12.0-16.0) g/dL Hct (37-47) % MCV (80-100) fL MCH (25-34) pg MCHC (32-36) g/dL RDW Std Deviation (36.4-46.3) fL RDW Coeff of Jessy (11.5-14.5) % Plt Count (130-400) K/uL MPV (7.4-10.4) fL Immature Gran % (Auto) % Neut % (Auto) % Lymph % (Auto) % Jay % (Auto) % Eos % (Auto) % Baso % (Auto) % Neut # (Auto) (1.4-6.5) K/uL Lymph # (Auto) (1.2-3.4) K/uL Jay # (Auto) (0.11-0.59) K/uL Eos # (Auto) (0-0.5) K/uL Baso # (Auto) (0-0.2) K/uL Immature Gran # (Auto) (0.00-0.02) K/uL Sodium (136-145) mmol/L Potassium (3.5-5.1) mmol/L Chloride (98-107) mmol/L Carbon Dioxide (21-32) mmol/L Anion Gap (3-11) BUN (7-18) mg/dl Creatinine (0.6-1.2) mg/dl Est Cr Clr Drug Dosing ml/min Est GFR ( Amer) Est GFR (Non-Af Amer) BUN/Creatinine Ratio (10-20) Glucose (70-99) mg/dl Calcium (8.5-10.1) mg/dl Total Bilirubin (0.2-1) mg/dl AST (15-37) U/L ALT (12-78) U/L Alkaline Phosphatase (45-117) U/L Troponin I (0-0.045) ng/ml Total Protein (6.4-8.2) gm/dl Albumin (3.4-5.0) gm/dl Globulin (2.5-4.0) gm/dl Albumin/Globulin Ratio (0.9-2) Lipase (73-393) U/L Urine Color Dark Yellow Urine Appearance Clear (Clear) Urine pH 5.5 (4.5-7.5) Ur Specific Garfield > 1.045 H (1.000-1.030) Urine Protein 1+ H (Negative) Urine Glucose (UA) Negative (Negative) Urine Ketones Trace H (Negative) Urine Blood Trace H (Negative) Urine Nitrite Negative (Negative) Urine Bilirubin Negative (Negative) Urine Urobilinogen Negative (Negative) Ur Leukocyte Esterase Negative (Negative) Urine WBC (Auto) 1-5 (0-5) /hpf Urine RBC (Auto) 0-4 (0-4) /hpf U Hyaline Cast (Auto) 10-30 H (0-5) /lpf U Epithel Cells (Auto) 20-30 H (0-5) /lpf Urine Bacteria (Auto) Negative (Negative) Granular Casts 1-5 H (0) /lpf Urine Mucus Present A (None Prsent) COVID-19 Eval Order Covid19 IDNow [facility] SARS-CoV-2, RNA, NAAT NEGATIVE (NEGATIVE) Administered Medications Discontinued Medications Sodium Chloride (Nss 1000ml) 2,000 mls @ 999 mls/hr IV .Q2H1M ONE Stop: 10/10/20 15:35 Last Infusion: 10/10/20 17:11 Dose: 0 mls/hr Documented by: [id number] Admin: 10/10/20 13:46 Dose: 999 mls/hr Documented by: [id number] Ioversol (Ioversol 100ml) 94 ml IV ONCE ONE Stop: 10/10/20 14:43 Last Admin: 10/10/20 14:42 Dose: 94 ml Documented by: [id number] Morphine Sulfate (Morphine Sulfate 4 Mg/Ml 1 Ml Carp\Vial) 4 mg IV NOW STA Stop: 10/10/20 13:36 Last Admin: 10/10/20 13:46 Dose: 4 mg Documented by: [id number] Morphine Sulfate (Morphine Sulfate 10 Mg/Ml Carp/Vial) 6 mg IV NOW STA Stop: 10/10/20 15:36 Last Admin: 10/10/20 15:47 Dose: 6 mg Documented by: [id number] Morphine Sulfate (Morphine Sulfate 2 Mg/Ml Carp) Confirm Administered Dose 6 mg .ROUTE .STK-MED ONE Stop: 10/10/20 15:45 Last Admin: 10/10/20 15:47 Dose: Not Given Documented by: [id number] Ondansetron HCl (Ondansetron Inj 2 Mg/Ml 2 Ml Vial) 4 mg IV NOW STA Stop: 10/10/20 13:36 Last Admin: 10/10/20 13:46 Dose: 4 mg Documented by: [id number] Discharge Plan Visit Data Chief Complaint: Abdominal Pain ED Provider: Michi Treadwell Discharge Problem: Abdominal pain, Hepatitis C, Acute pancreatitis Forms Stand Alone Forms: My IP Ghoster Prescriptions Prescriptions: No Action quetiapine [Seroquel] 100 mg Tablet 100 mg PO HS RF: 0 duloxetine 60 mg Capsule,Delayed Release(Dr/Ec) 60 mg PO BID RF: 0 simvastatin 20 mg Tablet 20 mg PO HS RF: 0 albuterol sulfate 90 mcg/actuation Aerosol Powdr Breath Activated 2 inh INHALATION Q6H PRN (Reason: SHORT OF BREATH) RF: 0 Lantus U-100 Insulin 100 unit/mL Solution 40 unit SUBCUT QPM RF: 0 gabapentin [Neurontin] 800 mg tablet 800 mg PO TID PRN (Reason: NEEDED PER PT) RF: 0 acetaminophen [Tylenol Extra Strength] 500 mg Tablet 1,000 mg PO DIRECTED PRN (Reason: Pain) RF: 0 levothyroxine 175 mcg Tablet 175 mcg PO QAM RF: 0 metformin 1,000 mg Tablet 1,000 mg PO QAM RF: 0 hydroxyzine HCl 25 mg Tablet 25 mg PO TID PRN (Reason: NEEDED) RF: 0 lisinopril 2.5 mg Tablet 2.5 mg PO QAM RF: 0 melatonin 5 mg Tablet 15 mg PO HS RF: 0 MidNite 1.5-22 mg-mcg Tablet, Chewable Dispersible 1 ea PO HS PRN (Reason: Sleep) RF: 0 IBgard 90 mg Capsule,Delayed,Extend.Release 90 mg PO QAM RF: 0 cyclobenzaprine 10 mg tablet 10 mg PO TID RF: 0 Trulicity 3 mg/0.5 ml 3 mg SC WK RF: 0 furosemide 20 mg tablet 20 mg PO DAILY PRN (Reason: Edema) RF: 0 omeprazole 20 mg 20 mg PO DAILY RF: 0 Discharge Problem: Abdominal pain Qualifiers: Abdominal location: unspecified location Qualified Code(s): R10.9 - Unspecified abdominal pain Hepatitis C Qualifiers: Viral hepatitis chronicity: unspecified Hepatic coma status: without hepatic coma Qualified Code(s): B19.20 - Unspecified viral hepatitis C without hepatic coma Acute pancreatitis Qualifiers: Pancreatitis type: unspecified pancreatitis type Acute pancreatitis compli cation: unspecified Qualified Code(s): K85.90 - Acute pancreatitis without necrosis or infection, unspecified
[2020-10-10 13:57] LABS: Albumin Level 3.2 gm/dl (3.4-5.0); BUN Creatinine Ratio 10.7 (10-20); Calcium 8.9 mg/dl (8.5-10.1); Creatinine Clr Calc Pharmacy 84.7 ml/min; Est GFR (African American) 87.5; Est GFR (Non-African American) 75.5; Potassium 3.9 mmol/L (3.5-5.1)
[2020-10-10 14:00] LABS: Albumin Globulin Ratio 0.7 (0.9-2); Bilirubin,Total 0.4 mg/dl (0.2-1); Globulin 4.7 gm/dl (2.5-4.0); Total Protein 7.9 gm/dl (6.4-8.2)
[2020-10-10] MEDS ORDERED: OPTIRAY 320 100ml IV ONE (14:42)
--- NOTE | 2020-10-10 14:58 | CT Scan Report ---
CT abd pelvis IV con only CLINICAL HISTORY: Left abdominal flank pain COMPARISON STUDY: November 2014 TECHNIQUE: Patient was scanned in a dynamic helical fashion during intravenous administration of 94 c c of Optiray 320 A dose lowering technique was utilized adhering to the principles of ALARA. CT DOSE: 1345.85 mGy.cm FINDINGS: Lower chest: The heart is normal in size and configuration, without pericardial effusion. The lung ba ses and pleural spaces are clear. Liver: There is minimal central ductal prominence, likely secondary to a prior cholecystectomy. Gallbladder: Surgically absent Spleen: Normal in size and attenuation. Pancreas: There is mild enlargement of the pancreatic head. There is mild infiltration of the fat kasey rounding the pancreatic head and adjacent duodenum. Clinical correlation with regards to pancreatitis is recommended. Correlation with appropriate biochemical markers is advocated. Adrenal glands: Unremarkable. Kidneys: There is symmetric renal cortical enhancement. The kidneys are normal in size without hydron ephrosis. Bowel: There are no transition zones to indicate bowel obstruction. There is colonic diverticulosis. There is no evidence of acute diverticulitis. The appendix appears normal. Peritoneum: There is no intraperitoneal free air or abdominal ascites. Vasculature: The abdominal aorta is normal in course and caliber. Adenopathy: None. Pelvic viscera: The uterus appears surgically absent. Skeletal structures: There is a 4 cm right adnexal cystic lesion likely ovarian IMPRESSION: 1. No evidence of bowel obstruction. No evidence of free air 2. Colonic diverticulosis. No evidence of acute diverticulitis. Normal appendix. 3. 4 cm right adnexal cystic lesion likely ovarian. This measured 3 cm in November 2014 4. Mild pancreatic head enlargement, and infiltration of the fat surrounding the pancreatic head and medial duodenum. Clinical correlation regards to a pancreatitis is recommended. 5. Mild central biliary ductal prominence, likely secondary to a reservoir effect from prior cholecys tectomy ACT 112: Negative or not required by law. Electronically signed by: Sukhi Lebron M.D. 10/10/2020 2:57 PM
[2020-10-10 15:22] LABS: Appearance Urine Clear (Clear); Bacteria Urine Automated Negative (Negative); Bilirubin Urine Negative (Negative); Blood Urine Trace (Negative); Color Urine Dark Yellow; Epithelial Cell Urine Auto 20-30 /lpf (0-5); Glucose Urine UA Negative (Negative); Ketones Urine Trace (Negative); Leukocyte Esterase Urine Negative (Negative); Nitrite Urine Negative (Negative); Protein Urine 1+ (Negative); RBC Urine Automated 0-4 /hpf (0-4); Specific Gravity Urine > 1.045 (1.000-1.030); Urobilinogen Urine Negative (Negative); pH Urine 5.5 (4.5-7.5)
[2020-10-10] MEDS ORDERED: MoRPHine SULFATE 10 MG/ML CARP/VIAL IV STA (15:35)
[2020-10-10] MEDS ORDERED: MoRPHine SULFATE 2 MG/ML CARP ONE (15:44)
[2020-10-10 15:49] LABS: Mucus Urine Present (None Prsent)
--- NOTE | 2020-10-10 16:58 | History & Physical Report ---
Date of Service October 10, 2020 Assessment & Plan (1) Pancreatitis: -Admit to [facility] -Continue with NSS 125 mL/h x 1 day -Continue IV pain medication, antiemetics -Lipase on admission is 277, patient likely has been struggling with this for at least past week possibly longer and is on the tail end. Follow a.m. lipase -Unlikely that the patient would require upper endoscopy. She is status post cholecystectomy. -Patient is scheduled with outpatient GI, previously had a colonoscopy with Dr. Ibarra in 2012, scheduled for maintenance C-scope November 2020 (2) Diabetes mellitus, type 2: -A1c 7.5 from 04/25/2020, check A1c with a.m. labs -Continue Lantus 40 units at bedtime, hold Metformin, hold Trulicity, takes on Mondays, did not take today due to feeling so poorly. -ISS with Accu-Cheks AC HS and Q6H while n.p.o. (3) HTN (hypertension): -Continue lisinopril 2.5 daily (4) Hypothyroidism: -Continue levothyroxine 150 mcg daily (5) Schizoaffective disorder: -Follows with Dr. Jimenez as an outpatient with psychiatry -Continue Cymbalta, hydroxyzine, Seroquel, Flexeril -Noted that the patient asked for Ativan during our meeting, she does not appear to be on this per her outpatient med rec nor is it listed on her current medicine list. Would be cautious about prescribing benzodiazepine to this patient due to seeking behavior. -Check tox screen (6) Fibromyalgia: -History of such -Flexeril for muscle spasm/cramp (7) Anxiety: -Continue anxiolytics as above (8) Hepatitis C: -Status post Harvoni treatment, SVR achieved 01/18/2016 (9) DVT prophylaxis: - teds, ambulatory CODE: Full code Dispo: From home, likely to remain in the hospital x 2 days (10) Chronic diarrhea: (11) Acute pancreatitis: History of Present Illness Primary Care Provider: Ania Rice MD This is a 60-year-old female with PMHx of HTN, HLD, DM type II, history of breast cancer in 2006 status post lumpectomy, hypothyroidism, anxiety, depression, schizoaffective disorder, lumbar disc herniation with radiculopathy, who presents with over 1 week of abdominal epigastric region pain and which goes straight through to her back. Reports the pain is worse after she eats or drinks anything. She also has been experiencing loose mucous bowel movements in the past week. Reports her oral intake is very poor, but has been able to drink liquids. Patient has complaints of nausea, unrelieved with Zofran. Her anxiety has been quite bad with all of this, but is slightly improved with marijuana use. She rolls her own cigarettes, and has been smoking less of them per day. Patient denies ever having an episode like this before. Denies any recent undercooked or raw food consumption, no medication changes, denies alcohol or other illicit substances, except marijuana use as above. Patient has been following with Dr. Jimenez, psychiatry as an outpatient however reports that she is out of Ativan p.o. and that her anxiety has been quite worse, she reports that "he dropped me when my insurance changed". Ativan is not listed on her medication list. Allergies Allergy/AdvReac Type Severity Reaction Status Date / Time varenicline AdvReac Intermediate NIGHTMARES Verified 10/10/20 15:17 Fvspdhq-Ite-Mnw Reductase AdvReac Unknown intolerance Verified 10/11/20 00:47 Inhibitor Home Medications Medication Instructions Recorded Confirmed Type albuterol sulfate 2 inh INHALATION Q6H PRN 08/21/18 10/10/20 History duloxetine 60 mg PO BID 08/21/18 10/10/20 History simvastatin 20 mg PO HS 08/21/18 10/10/20 History Lantus U-100 Insulin 40 unit SUBCUT QPM 10/28/18 10/10/20 History gabapentin [Neurontin] 800 mg PO TID PRN 10/28/18 10/10/20 History quetiapine [Seroquel] 100 mg PO HS 03/27/19 10/10/20 History acetaminophen [Tylenol Extra 1,000 mg PO DIRECTED PRN 04/29/20 10/10/20 History Strength] Trulicity 3 mg SC WK 10/10/20 10/10/20 History cyclobenzaprine 10 mg PO TID 10/10/20 10/10/20 History furosemide 20 mg PO DAILY PRN 10/10/20 10/10/20 History hydroxyzine HCl 25 mg PO TID PRN 10/10/20 10/10/20 History levothyroxine 175 mcg PO QAM 10/10/20 10/10/20 History lisinopril 2.5 mg PO QAM 10/10/20 10/10/20 History melatonin 15 mg PO HS 10/10/20 10/10/20 History melatonin-herbal no.233 [MidNite] 1 ea PO HS PRN 10/10/20 10/10/20 History metformin 1,000 mg PO QAM 10/10/20 10/10/20 History omeprazole 20 mg PO DAILY 10/10/20 10/10/20 History peppermint oil [IBgard] 90 mg PO QAM 10/10/20 10/10/20 History Past Med/Surg History Medical History (Updated 10/11/20 @ 00:51 by Sheree Butler DO) Anxiety Chronic obstructive pulmonary disease Depression Diabetes mellitus, type 2 Fibromyalgia GERD (gastroesophageal reflux disease) History of falling 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 Hx of hepatitis C treated HX: breast cancer 2013 LEFT - radiation and lumpectomy and oral chemo Hyperlipidemia Hypertension taking med for precaution with diabetes Medical marijuana use Osteoarthritis Peripheral neuropathy LEGS - BOTH FEET Schizoaffective disorder Surgical History History of ankle surgery RT ANKLE X 3 History of bilateral tubal ligation History of cholecystectomy History of colonoscopy History of dilatation and curettage History of esophagogastroduodenoscopy (EGD) History of hysterectomy History of lumpectomy of left breast History of open reduction and internal fixation (ORIF) procedure RIGHT ANKLE History of surgery TO REMOVE CALCIUM DEPOSIT FROM BACK History of tooth extraction all teeth Family History Father Family history of diabetes mellitus Other No family history of adverse response to anesthesia Social History Smoking Status: Current every day smoker Tobacco Type: Cigarettes Cigarettes Per Day: 10-20; Second Hand Exposure: No; Hx Alcohol Use: No Hx Substance Use: No Preferred Language: Bermudian Communication Ability: Effective Director Of Special Education Required: No Beliefs That Will Affect Care: None Current Living Situation: Alone Current Living Situation Comment: appartment; handicap Other Information That Helps Us Care for You: No Feels Safe at Home: Yes Assistive Devices: Oxygen - at Night and Walker Assistive Devices Comment: Has power scooter she uses occasionally Review of Systems Review of Systems: Constitutional: No fever, sweats or chills Eyes: No diplopia, no worsening or blurred vision ENT: normal hearing, no trouble swallowing Respiratory: No cough, sputum, dyspnea at rest or on exertion Cardiovascular: No chest pain, tightness or palpitations Abdomen: As per HPI Musculoskeletal: No joint pain, calf pain, swelling Neurologic: No weakness, numbness/tingling, or balance problems Psychiatric: No anxiety or depression Skin: + Redness under pannus, otherwise no rash or itch Physical Exam Physical Exam: General: awake, alert, no apparent distress, + obese BMI 36.9 Head: Normocephalic, atraumatic ENT: PERRL, EOMI, no pharyngeal exudate, + endentulous mucous membranes dry, + thrush on tongue Chest: Clear to auscultation, on room air, no adventitious breath sounds Cardiac: Regular rate and rhythm, no murmur, no JVD, normal peripheral pulses, good capillary refill Abdominal: NABS x 4 quadrants, soft, nondistended, minimal tenderness to palpation in epigastric region, no rebound or guarding Extremities: Normal inspection, no peripheral edema or erythema, calfs nontender to palpation Psych: Anxious mood and affect Skin: Multiple areas of lesions over extremities, appears to be from picking Neuro: AAO x 3, strength intact bilaterally and rated 5/5, no motor deficits, speech is clear, no peripheral sensory deficits Results & Data Results & Data ([facility]) Vital Signs (Past 12 Hours) Vital Signs Temp Pulse Pulse Resp BP BP Pulse Ox 10/10/20 15:15 94 H 20 150/128 H 98 10/10/20 14:33 94 H 20 103/76 98 10/10/20 13:18 37.5 C 107 H 20 173/[address] abd pelvis IV con only CLINICAL HISTORY: Left abdominal flank pain COMPARISON STUDY: November 2014 TECHNIQUE: Patient was scanned in a dynamic helical fashion during intravenous administration of 94 cc of Optiray 320 A dose lowering technique was utilized adhering to the principles of ALARA. CT DOSE: 1345.85 mGy.cm FINDINGS: Lower chest: The heart is normal in size and configuration, without pericardial effusion. The lung bases and pleural spaces are clear. Liver: There is minimal central ductal prominence, likely secondary to a prior cholecystectomy. Gallbladder: Surgically absent Spleen: Normal in size and attenuation. Pancreas: There is mild enlargement of the pancreatic head. There is mild infiltration of the fat surrounding the pancreatic head and adjacent duodenum. Clinical correlation with regards to pancreatitis is recommended. Correlation with appropriate biochemical markers is advocated. Adrenal glands: Unremarkable. Kidneys: There is symmetric renal cortical enhancement. The kidneys are normal in size without hydronephrosis. Bowel: There are no transition zones to indicate bowel obstruction. There is colonic diverticulosis. There is no evidence of acute diverticulitis. The appendix appears normal. Peritoneum: There is no intraperitoneal free air or abdominal ascites. Vasculature: The abdominal aorta is normal in course and caliber. Adenopathy: None. Pelvic viscera: The uterus appears surgically absent. Skeletal structures: There is a 4 cm right adnexal cystic lesion likely ovarian IMPRESSION: 1. No evidence of bowel obstruction. No evidence of free air 2. Colonic diverticulosis. No evidence of acute diverticulitis. Normal appendix. 3. 4 cm right adnexal cystic lesion likely ovarian. This measured 3 cm in November 2014 4. Mild pancreatic head enlargement, and infiltration of the fat surrounding the pancreatic head and medial duodenum. Clinical correlation regards to a pancreatitis is recommended. 5. Mild central biliary ductal prominence, likely secondary to a reservoir effect from prior cholecystectomy ECG Additional Comments: 10-OCT-2020 14:14:12 [facility]-EDSTAT ROUTINE RETRIEVAL Normal sinus rhythm Right bundle branch block Left anterior fascicular block Bifascicular block Abnormal ECG When compared with ECG of 29-APR-2020 01:49, Nonspecific T wave abnormality no longer evident in Inferior leads 25mm/s 10mm/mV 150Hz 9.0.9 12SL 241 BRANDON: 13 Referred by: REFERRED SELF Unconfirmed Vent. rate 94 BPM LA interval 146 ms QRS duration 122 ms QT/QTc 386/482 ms Code Status & VTE Plan Code Status Full -discussed with the patient at bedside Supervising Physician Co-Signing Physician Notes I have seen and examined the patient and have discussed the case with the provider above. I agree with the assessment and plan as stated. The patient is a 60-year-old female who presents with evidence of resolving pancreatitis that has been going on reportedly for at least a week and possibly longer. She is currently asking for some food and feels the narcotics are working to control her pain. She is otherwise not reporting concerning symptoms of fever, chills, chest pain. She has been reporting loose mucousy bowel movements in the past week and has poor oral intake. She does smoke cigarettes, but denies alcohol use. She is status post cholecystectomy. On exam she is generally unkempt and does not appear to take good care of herself. Abdomen is TTP in epigastric region on my exam. Heart and lung exams are normal. She is obese. She was recently seen a couple of days ago in the [facility] GI clinic with chronic diarrhea lower abdominal pain and epigastric pain. Upper and lower scopes were planned and so will consult [facility] GI at this time. Cont supportive care overnight. DO Luke (1) Acute pancreatitis Acute pancreatitis complication: unspecified Pancreatitis type: unspecified pancreatitis type Qualified Code(s): K85.90 - Acute pancreatitis without necrosis or infection, unspecified
[2020-10-10 17:40] LABS: Amphetamines+Metham, Urine Neg (Neg); Barbiturates, Urine Neg (Neg); Benzodiazepine, Urine Neg (Neg); Cocaine, Urine Neg (Neg); MDMA (Ecstacy), Urine Neg (Neg); Methadone, Urine Neg (Neg); Opiate, Urine Pos (Neg); Phencyclidine, Urine Neg (Neg)
[2020-10-10] MEDS ORDERED: MoRPHine SULFATE 4 MG/ML 1 ML CARP\\VIAL IV PRN (19:01)
[2020-10-10] MEDS ORDERED: ALBUTEROL HFA 8 GM INHALER INH PRN (19:01)
[2020-10-10] MEDS ORDERED: GLUCOSE 10 TABS/TUBE PO PRN (19:01)
[2020-10-10] MEDS ORDERED: GLUCAGON FOR INJ 1 MG VIAL SQ PRN (19:01)
[2020-10-10] MEDS ORDERED: ONDANSETRON INJ 2 MG/ML 2 ML VIAL IV PRN (19:01)
[2020-10-10] MEDS ORDERED: GLUCOSE 40% GEL 15 GM TUBE PO PRN (19:01)
[2020-10-10] MEDS ORDERED: hydrOXYzine HCl 25 MG TAB PO PRN (19:01)
[2020-10-10] MEDS ORDERED: PROCHLORPERAZINE 10 MG in SYRINGE 8 ML IV PRN (19:01)
[2020-10-10] MEDS ORDERED: DEXTROSE 50% 50 ML SYRINGE IV PRN (19:01)
[2020-10-10] MEDS: HYDROmorphone INJ 0.5 MG/0.5 ML SYR IV PRN (19:56)
[2020-10-10] MEDS: SODIUM CHLORIDE 0.9% 1000ML 1,000 ML IV SCH (20:13)
[2020-10-10] MEDS: INSULIN ASPART 100 UNITS/ML 3 ML PEN SC SCH ×2 (20:42→21:59)
[2020-10-10] MEDS: NYSTATIN POWDER 15GM BTL EXT PRN (20:46)
[2020-10-10] MEDS: NICOTINE 7 MG/24 HR TDSY TD SCH (20:46)
[2020-10-10] MEDS: INSULIN GLARGINE SOLOSTAR 100 UNITS/ML 3 ML PEN SC SCH (20:47)
[2020-10-10] MEDS: DULoxetine HCL 60 MG CAP PO SCH (21:57)
[2020-10-10] MEDS: NYSTATIN SUSP 500,000 U/5 ML UDC PO SCH ×2 (21:58→22:01)
[2020-10-10] MEDS: QUEtiapine FUMARATE 100 MG TABLET PO SCH (21:58)
[2020-10-10] MEDS: CYCLOBENZAPRINE HCL 10 MG TAB PO SCH (21:58)
[2020-10-10] MEDS: SIMVASTATIN 20 MG TAB PO SCH (21:58)
[2020-10-11] MEDS: HYDROmorphone INJ 0.5 MG/0.5 ML SYR IV PRN ×6 (00:50→21:15)
[2020-10-11] MEDS: SODIUM CHLORIDE 0.9% 1000ML 1,000 ML IV SCH ×2 (04:51→12:03)
[2020-10-11] MEDS: LEVOTHYROXINE SODIUM 175 MCG TABLET PO SCH (04:55)
[2020-10-11 06:10] LABS: Hematocrit (blood only) 37.9 % (37-47); Hemoglobin 12.5 g/dL (12.0-16.0); Mean Corpuscular Hemoglobin 30.1 pg (25-34); Mean Corpuscular Volume 91.3 fL (80-100); Mean Platelet Volume 9.7 fL (7.4-10.4); Platelet Count 285 K/uL (130-400); RDW Coefficient of Variation 13.7 % (11.5-14.5); RDW Standard Deviation 45.5 fL (36.4-46.3); Red Blood Count 4.15 M/uL (4.2-5.4); White Blood Count 10.43 K/uL (4.8-10.8)
[2020-10-11 06:19] LABS: Prothrombin Time 10.1 Seconds (9.0-12.0)
[2020-10-11 06:38] LABS: Albumin Globulin Ratio 0.8 (0.9-2); Albumin Level 2.8 gm/dl (3.4-5.0); BUN Creatinine Ratio 16.6 (10-20); Bilirubin,Total 0.3 mg/dl (0.2-1); Calcium 8.1 mg/dl (8.5-10.1); Creatinine Clr Calc Pharmacy 181.1 ml/min; Est GFR (African American) 133.1; Est GFR (Non-African American) 114.8; Globulin 3.6 gm/dl (2.5-4.0); Magnesium 1.7 mg/dl (1.8-2.4); Potassium 3.4 mmol/L (3.5-5.1); Total Protein 6.4 gm/dl (6.4-8.2)
--- NOTE | 2020-10-11 06:44 | Electrocardiogram Report ---
Test Reason : Blood Pressure : / mmHG Vent. Rate : 094 BPM Atrial Rate : 094 BPM P-R Int : 146 ms QRS Dur : 122 ms QT Int : 386 ms P-R-T Axes : 057 -70 053 degrees QTc Int : 482 ms Normal sinus rhythm Right bundle branch block Left anterior fascicular block Bifascicular block Abnormal ECG When compared with ECG of 29-APR-2020 01:49, Nonspecific T wave abnormality no longer evident in Inferior leads Confirmed by Liam Champion ([id number]) on 10/11/2020 6:44:31 AM Referred By: REFERRED SELF Confirmed By:Liam Champion
[2020-10-11 07:07] LABS: Estimated Average Glucose 160 mg/dl; Hemoglobin A1C 7.2 % (4.5-5.6)
[2020-10-11] MEDS: CYCLOBENZAPRINE HCL 10 MG TAB PO SCH ×3 (08:37→20:01)
[2020-10-11] MEDS: NYSTATIN SUSP 500,000 U/5 ML UDC PO SCH ×4 (08:37→20:02)
[2020-10-11] MEDS: INSULIN ASPART 100 UNITS/ML 3 ML PEN SC SCH ×4 (08:55→21:10)
--- NOTE | 2020-10-11 09:02 | Anesthesiology Consultation ---
Date of Service October 11, 2020 Assessment & Plan (1) Encounter for pre-operative examination: Chart Review Chart Review: Acceptable Risk for Surgery History Surgery Operation Date: 10/11/20 17:00 Proposed Procedures p Esophagogastroduodenoscopy Dr Israel - Radhika Arce MD Height/Weight Height: 5 ft 5 in Weight: 101.605 kg Allergies Allergy/AdvReac Type Severity Reaction Status Date / Time varenicline AdvReac Intermediate NIGHTMARES Verified 10/10/20 15:17 Rukqpat-Xhc-Klh Reductase AdvReac Unknown intolerance Verified 10/11/20 00:47 Inhibitor Medications Home Medications Medication Instructions Recorded Confirmed Last Taken albuterol sulfate 2 inh INHALATION Q6H PRN 08/21/18 10/10/20 04/24/20 duloxetine 60 mg PO BID 08/21/18 10/10/20 10/10/20 08:00 simvastatin 20 mg PO HS 08/21/18 10/10/20 10/09/20 Lantus U-100 Insulin 40 unit SUBCUT QPM 10/28/18 10/10/20 10/09/20 gabapentin [Neurontin] 800 mg PO TID PRN 10/28/18 10/10/20 04/24/20 quetiapine [Seroquel] 100 mg PO HS 03/27/19 10/10/20 10/09/20 acetaminophen [Tylenol Extra 1,000 mg PO DIRECTED PRN 04/29/20 10/10/20 Unknown Strength] Trulicity 3 mg SC WK 10/10/20 10/10/20 10/03/20 cyclobenzaprine 10 mg PO TID 10/10/20 10/10/20 10/09/20 furosemide 20 mg PO DAILY PRN 10/10/20 10/10/20 10/09/20 hydroxyzine HCl 25 mg PO TID PRN 10/10/20 10/10/20 10/09/20 levothyroxine 175 mcg PO QAM 10/10/20 10/10/20 10/10/20 lisinopril 2.5 mg PO QAM 10/10/20 10/10/20 10/10/20 melatonin 15 mg PO HS 10/10/20 10/10/20 10/09/20 melatonin-herbal no.233 [MidNite] 1 ea PO HS PRN 10/10/20 10/10/20 Unknown metformin 1,000 mg PO QAM 10/10/20 10/10/20 10/09/20 omeprazole 20 mg PO DAILY 10/10/20 10/10/20 10/09/20 peppermint oil [IBgard] 90 mg PO QAM 10/10/20 10/10/20 10/10/20 Active Medications Generic Name Dose Route Start Last Admin Trade Name Freq PRN Reason Stop Dose Admin Cyclobenzaprine HCl 10 mg 10/10/20 21:00 10/11/20 08:37 Cyclobenzaprine Hcl 10 Mg Tab PO 11/09/20 20:59 Not Given TID ANGIE Duloxetine HCl 60 mg 10/10/20 21:00 10/10/20 21:57 Duloxetine Hcl 60 Mg Cap PO 11/09/20 20:59 Not Given BID ANGIE Hydromorphone HCl 0.5 mg 10/10/20 19:01 10/11/20 08:22 Hydromorphone Inj 0.5 Mg/0.5 Ml Syr IV 10/24/20 19:00 0.5 mg Q3H PRN Administration Pain Sodium Chloride 1,000 mls @ 125 mls/hr 10/10/20 19:01 10/11/20 04:51 Nss 1000ml IV 10/11/20 19:00 125 mls/hr .Q8H ANGIE Administration Insulin Aspart 0 units 10/10/20 19:45 10/11/20 08:55 Insulin Aspart 100 Units/Ml 3 Ml Pen SC 11/09/20 19:44 Not Given ACHS ANGIE Insulin Glargine 40 units 10/10/20 19:45 10/10/20 20:47 Insulin Glargine Solostar 100 Units/Ml 3 Ml Pen SC 11/09/20 19:44 40 units QPM ANGIE Administration Levothyroxine Sodium 175 mcg 10/11/20 06:30 10/11/20 04:55 Levothyroxine Sodium 175 Mcg Tablet PO 11/10/20 06:29 175 mcg DAILYBB ANGIE Administration Miscellaneous 1 ea 10/10/20 19:59 10/10/20 20:44 Remove Nicoderm Patch N/A 11/09/20 19:58 Not Given DAILY@1959 ANGIE Nicotine 7 mg 10/10/20 20:00 10/10/20 20:46 Nicotine 7 Mg/24 Hr Tdsy TD 11/09/20 19:59 7 mg DAILY@2000 ANGIE Administration Nystatin 5 ml 10/10/20 19:45 10/11/20 08:37 Nystatin Susp 500,000 U/5 Ml Udc PO 10/20/20 19:44 Not Given QID ANGIE Nystatin 1 appln 10/10/20 19:01 10/10/20 20:46 Nystatin Powder 15gm Btl EXT 11/09/20 19:00 1 appln BID PRN Administration Rash Ondansetron HCl 4 mg 10/10/20 19:01 10/11/20 08:27 Ondansetron Inj 2 Mg/Ml 2 Ml Vial IV 11/09/20 19:00 4 mg Q4H PRN Administration Nausea And Vomiting Quetiapine Fumarate 100 mg 10/10/20 21:00 10/10/20 21:58 Quetiapine Fumarate 100 Mg Tablet PO 11/09/20 20:59 100 mg HS ANGIE Administration Simvastatin 20 mg 10/10/20 21:00 10/10/20 21:58 Simvastatin 20 Mg Tab PO 11/09/20 20:59 20 mg HS ANGIE Administration Past Medical History Medical History Anxiety Chronic obstructive pulmonary disease Depression Diabetes mellitus, type 2 Fibromyalgia GERD (gastroesophageal reflux disease) History of falling 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 Hx of hepatitis C treated HX: breast cancer 2013 LEFT - radiation and lumpectomy and oral chemo Hyperlipidemia Hypertension taking med for precaution with diabetes Medical marijuana use Osteoarthritis Peripheral neuropathy LEGS - BOTH FEET Schizoaffective disorder Past Family History Family History Father Family history of diabetes mellitus Other No family history of adverse response to anesthesia Past Surgical History Surgical History History of ankle surgery RT ANKLE X 3 History of bilateral tubal ligation History of cholecystectomy History of colonoscopy History of dilatation and curettage History of esophagogastroduodenoscopy (EGD) History of hysterectomy History of lumpectomy of left breast History of open reduction and internal fixation (ORIF) procedure RIGHT ANKLE History of surgery TO REMOVE CALCIUM DEPOSIT FROM BACK History of tooth extraction all teeth Social History Smoking Status: Current every day smoker tobacco type: cigarettes Smoking cigarettes per day: 10-20 Hx Alcohol Use: No Hx Substance Use: No substance use type: marijuana Substance Use Type Other:: (ADVISED) Last Used Substance Other:: [facility] Physical Exam Vital Signs Last Vital Signs Temp 36.8 C 10/11/20 07:09 Pulse 82 10/11/20 07:09 Resp 18 10/11/20 07:09 BP 129/83 10/11/20 07:09 Pulse Ox 92 10/11/20 07:09 Testing Laboratory Results 10/11/20 05:49 10/11/20 05:49 PT 10.1 Seconds (9.0-12.0) 10/11/20 05:49 INR 1.0 (0.9-1.1) 10/11/20 05:49 Hemoglobin A1c 7.2 % (4.5-5.6) H 10/11/20 05:49 Urine Color Dark Yellow 10/10/20 15:12 Urine Appearance Clear (Clear) 10/10/20 15:12 Urine pH 5.5 (4.5-7.5) 10/10/20 15:12 Ur Specific [place] > 1.045 (1.000-1.030) H 10/10/20 15:12 Urine Protein 1+ (Negative) H 10/10/20 15:12 Urine Glucose (UA) Negative (Negative) 10/10/20 15:12 Urine Ketones Trace (Negative) H 10/10/20 15:12 Urine Nitrite Negative (Negative) 10/10/20 15:12 Ur Leukocyte Esterase Negative (Negative) 10/10/20 15:12 Urine WBC (Auto) 1-5 /hpf (0-5) 10/10/20 15:12 Urine RBC (Auto) 0-4 /hpf (0-4) 10/10/20 15:12 U Hyaline Cast (Auto) 10-30 /lpf (0-5) H 10/10/20 15:12 U Epithel Cells (Auto) 20-30 /lpf (0-5) H 10/10/20 15:12 Urine Bacteria (Auto) Negative (Negative) 10/10/20 15:12 10/11/20 08:19 POC Glucose 95
[2020-10-11] MEDS: DULoxetine HCL 60 MG CAP PO SCH ×3 (09:10→19:56)
--- NOTE | 2020-10-11 09:26 | History & Physical Report ---
Date of Service October 11, 2020 Assessment & Plan Admission and Anticipated Discharge Date Admission Date: October 10, 2020 History of Present Illness Primary Care Provider: Ania Rice MD Acute on Chronic nausea, epigastric pain CV: RRR Resp: CTA Abd: soft A/P: EGD r/o PUD Allergies Allergy/AdvReac Type Severity Reaction Status Date / Time varenicline AdvReac Intermediate NIGHTMARES Verified 10/10/20 15:17 Eqenpti-Hte-Gvg Reductase AdvReac Unknown intolerance Verified 10/11/20 00:47 Inhibitor Home Medications Medication Instructions Recorded Confirmed Type albuterol sulfate 2 inh INHALATION Q6H PRN 08/21/18 10/10/20 History duloxetine 60 mg PO BID 08/21/18 10/10/20 History simvastatin 20 mg PO HS 08/21/18 10/10/20 History Lantus U-100 Insulin 40 unit SUBCUT QPM 10/28/18 10/10/20 History gabapentin [Neurontin] 800 mg PO TID PRN 10/28/18 10/10/20 History quetiapine [Seroquel] 100 mg PO HS 03/27/19 10/10/20 History acetaminophen [Tylenol Extra 1,000 mg PO DIRECTED PRN 04/29/20 10/10/20 History Strength] Trulicity 3 mg SC WK 10/10/20 10/10/20 History cyclobenzaprine 10 mg PO TID 10/10/20 10/10/20 History furosemide 20 mg PO DAILY PRN 10/10/20 10/10/20 History hydroxyzine HCl 25 mg PO TID PRN 10/10/20 10/10/20 History levothyroxine 175 mcg PO QAM 10/10/20 10/10/20 History lisinopril 2.5 mg PO QAM 10/10/20 10/10/20 History melatonin 15 mg PO HS 10/10/20 10/10/20 History melatonin-herbal no.233 [MidNite] 1 ea PO HS PRN 10/10/20 10/10/20 History metformin 1,000 mg PO QAM 10/10/20 10/10/20 History omeprazole 20 mg PO DAILY 10/10/20 10/10/20 History peppermint oil [IBgard] 90 mg PO QAM 10/10/20 10/10/20 History Past Med/Surg History Medical History Anxiety Chronic obstructive pulmonary disease Depression Diabetes mellitus, type 2 Fibromyalgia GERD (gastroesophageal reflux disease) History of falling 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 Hx of hepatitis C treated HX: breast cancer 2013 LEFT - radiation and lumpectomy and oral chemo Hyperlipidemia Hypertension taking med for precaution with diabetes Medical marijuana use Osteoarthritis Peripheral neuropathy LEGS - BOTH FEET Schizoaffective disorder Surgical History History of ankle surgery RT ANKLE X 3 History of bilateral tubal ligation History of cholecystectomy History of colonoscopy History of dilatation and curettage History of esophagogastroduodenoscopy (EGD) History of hysterectomy History of lumpectomy of left breast History of open reduction and internal fixation (ORIF) procedure RIGHT ANKLE History of surgery TO REMOVE CALCIUM DEPOSIT FROM BACK History of tooth extraction all teeth Family History Father Family history of diabetes mellitus Other No family history of adverse response to anesthesia Social History Smoking Status: Current every day smoker Tobacco Type: Cigarettes Cigarettes Per Day: 10-20; Second Hand Exposure: No; Hx Alcohol Use: No Hx Substance Use: No Preferred Language: Bulgarian Communication Ability: Effective Health Analytics Consultant Required: No Beliefs That Will Affect Care: None Current Living Situation: Alone Current Living Situation Comment: appartment; handicap Other Information That Helps Us Care for You: No Feels Safe at Home: Yes Assistive Devices: Oxygen - at Night and Walker Assistive Devices Comment: Has power scooter she uses occasionally Results & Data ([facility]) Vital Signs (Past 12 Hours) Vital Signs Temp Pulse Resp BP BP Pulse Ox 10/11/20 09:17 36.8 C 85 18 159/99 H 94 10/11/20 07:09 36.8 C 82 18 129/83 92 10/11/20 00:40 36.7 C 100 H 18 168/84 H 91 10/10/20 22:58 36.9 C 82 20 151/77 H 91 Code Status & VTE Plan VTE Prophylaxis Plan VTE Prophylaxis will be ordered: Yes
[2020-10-11] MEDS ORDERED: LIDOCAINE HCL 2% 2 ML VIAL/AMP(20MG/ML) INFIL ONE (09:32)
[2020-10-11] MEDS ORDERED: PROPOFOL IV EMULSION 10 MG/ML 20 ML VIAL IV ONE (09:32)
[2020-10-11] MEDS ORDERED: MIDAZOLAM HCL 1 MG/ML 2ML VIAL ONE (09:32)
[2020-10-11] MEDS ORDERED: ONDANSETRON INJ 2 MG/ML 2 ML VIAL ONE (09:33)
--- NOTE | 2020-10-11 09:58 | GI REPORT ---
Patient Name: Alisha Gates Procedure Date: 10/11/2020 9:35 AM Date of : 1960 Admit Type: Inpatient Age: 60 Gender: Female Attending MD: Radhika Arce MD Procedure: Upper GI endoscopy Providers: Radhika Arce MD Referring MD: Simin Leonardo Md Indications: Abdominal pain Medicines: See the Anesthesia note for documentation of the administered medications Complications: No immediate complications. Estimated Blood Loss: Estimated blood loss: none. Procedure: Pre-Anesthesia Assessment: - ASA Grade Assessment: III - A patient with severe systemic disease. After obtaining informed consent, the endoscope was passed under direct vision. Throughout the procedure, the patient's blood pressure, pulse, and oxygen saturations were monitored continuously. The Endoscope was introduced through the mouth, and advanced to the second part of duodenum. The upper GI endoscopy was accomplished without difficulty. The patient tolerated the procedure well. Findings: The examined esophagus was normal. Mild patchy erythema in the mid body. Few minor erosions in the mid body of the stomach. The stomach was otherwise normal. Random biopsies done. There was mild patchy erythema in the duodenal bulb. The duodenum was otherwise normal. Random biopsies done. The pictures from the exam were lost due to technical error. Impression: Mild erosive gastritis. Recommendation: - Discharge patient to floor. Shimon Marsh MD 10/11/2020 9:56:37 AM This report has been signed electronically. Note Initiated On: 10/11/2020 9:35 AM Number of Addenda: 0 I attest to the content of the Intraoperative Record and orders documented therein, exceptions below {[id number]}
--- NOTE | 2020-10-11 10:40 | Anesthesiology Progress Note ---
Date of Service October 11, 2020 Anesthesia Post Procedure Vital Signs Vital Signs: Temp Pulse Pulse Pulse Resp BP BP 10/11/20 10:30 77 16 138/79 10/11/20 10:15 79 16 118/89 10/11/20 10:00 81 16 10/11/20 09:17 36.8 C 85 18 159/99 H 10/11/20 07:09 36.8 C 82 18 129/83 10/11/20 00:40 36.7 C 100 H 18 168/84 H 10/10/20 22:58 36.9 C 82 20 10/10/20 19:10 36.7 C 92 H 18 161/94 H 10/10/20 19:09 36.7 C 92 H 18 161/94 H 10/10/20 17:50 85 20 150/115 H 10/10/20 17:00 87 20 114/92 10/10/20 15:15 94 H 20 150/128 H 10/10/20 14:33 94 H 20 103/76 10/10/20 13:18 37.5 C 107 H 20 173/101 H BP Pulse Ox 10/11/20 10:30 96 10/11/20 10:15 99 10/11/20 10:00 129/79 94 10/11/20 09:17 94 10/11/20 07:09 92 10/11/20 00:40 91 10/10/20 22:58 151/77 H 91 10/10/20 19:10 91 10/10/20 19:09 91 10/10/20 17:50 98 10/10/20 17:00 96 10/10/20 15:15 98 10/10/20 14:33 98 10/10/20 13:18 93 Pain Intensity Abdomen: Pain Intensity: 8 Transfer of Care Handoff Completed per policy Notes Mental Status: alert / awake / arousable Patient Amnestic to Procedure: Yes Nausea / Vomiting: adequately controlled Pain: adequately controlled Airway Patency, RR, SpO2: stable & adequate BP & HR: stable & adequate Hydration State: stable & adequate Anesthetic Complications: no major complications apparent
[2020-10-11] MEDS: PANTOprazole 40 MG TAB PO SCH (11:05)
[2020-10-11] MEDS: lisinopril 2.5 MG TAB PO SCH (11:05)
[2020-10-11] MEDS: ENOXAPARIN INJ 40 MG/0.4 ML SYR SQ SCH (11:07)
--- NOTE | 2020-10-11 13:41 | Gastrointestinal Consultation ---
Date of Consultation October 11, 2020 Assessment & Plan (1) Acute pancreatitis: IV fluids, Bowel rest Cautious use of analgesics Will continue to follow Will arrange OP EUS (will change previously scheduled EGD to EGD/EUS). Present on Admission?: Yes (2) Chronic diarrhea: No Bms since arrival but will order stool for C-diff and culture - to be checked if diarrhea recurs. Plan for OP colonoscopy in November as previously scheduled. Present on Admission?: Yes Supervising Physician Co-Signing Physician Notes Attg add (late entry): I interviewed and examined pt, reviewed cart and labs. Pt with several weeks of worsening abdominal pain radiating in band like distribution to back, also nausea. On admit, lipase mildly increased < 1.5 x ULN, nl LFTs, CT with mild edema and stranding around panc head. DDX= PUD, pancreatitis, gastroparesis from DM or trulicity. Will plan EGD today, EUS in 4 weeks to r/o panc pathology such as divisum, neoplasm. Regarding pain, empiric trial of reglan. Clears for now. Outpt cscopy alreadyscheduled. History of Present Illness Reason for Consultation: chronic diarrhea, pancreatitis Requesting Physician: Dr. Butler Attending Physician: Simin Leonardo MD History of Present Illness Ms. Alisha Gates is a 60 yr old female pt of Dr. Ania Rice with a hx of HTN, Schizoaffective disorder, COPD, DM-2, fibromyalgia, anxiety HCV, left breast cancer 2014 lumpectomy/chemo/radiation. She presented to the ED yesterday for abd pain. She had also recently been seen in the OP GI clinic by myself and OP EGD/Colonoscopy were arranged. On arrival at [facility], lipase was elevated at 481, CT with suggestion of mild pancreatitis. She denies any hx of increased ETOH intake. She has a hx of smoking but says she quit recently. She reports N/V for the past few days. Since arrival here, she underwent EGD with mild erosive gastritis, other normal. Blood indices and renal function remain normal. She is awake, alert,oriented and c/o hunger. Allergies Allergy/AdvReac Type Severity Reaction Status Date / Time varenicline AdvReac Intermediate NIGHTMARES Verified 10/10/20 15:17 [id number] Reductase AdvReac Unknown intolerance Verified 10/11/20 00:47 Inhibitor Home Medications Medication Instructions Recorded Confirmed Type albuterol sulfate 2 inh INHALATION Q6H PRN 08/21/18 10/10/20 History duloxetine 60 mg PO BID 08/21/18 10/10/20 History simvastatin 20 mg PO HS 08/21/18 10/10/20 History Lantus U-100 Insulin 40 unit SUBCUT QPM 10/28/18 10/10/20 History gabapentin [Neurontin] 800 mg PO TID PRN 10/28/18 10/10/20 History quetiapine [Seroquel] 100 mg PO HS 03/27/19 10/10/20 History acetaminophen [Tylenol Extra 1,000 mg PO DIRECTED PRN 04/29/20 10/10/20 History Strength] Trulicity 3 mg SC WK 10/10/20 10/10/20 History cyclobenzaprine 10 mg PO TID 10/10/20 10/10/20 History furosemide 20 mg PO DAILY PRN 10/10/20 10/10/20 History hydroxyzine HCl 25 mg PO TID PRN 10/10/20 10/10/20 History levothyroxine 175 mcg PO QAM 10/10/20 10/10/20 History lisinopril 2.5 mg PO QAM 10/10/20 10/10/20 History melatonin 15 mg PO HS 10/10/20 10/10/20 History melatonin-herbal no.233 [MidNite] 1 ea PO HS PRN 10/10/20 10/10/20 History metformin 1,000 mg PO QAM 10/10/20 10/10/20 History omeprazole 20 mg PO DAILY 10/10/20 10/10/20 History peppermint oil [IBgard] 90 mg PO QAM 10/10/20 10/10/20 History Patient History Medical History Anxiety Chronic obstructive pulmonary disease Depression Diabetes mellitus, type 2 Fibromyalgia GERD (gastroesophageal reflux disease) History of falling 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 Hx of hepatitis C treated HX: breast cancer 2012 LEFT - radiation and lumpectomy and oral chemo Hyperlipidemia Hypertension taking med for precaution with diabetes Medical marijuana use Osteoarthritis Peripheral neuropathy LEGS - BOTH FEET Schizoaffective disorder Surgical History History of ankle surgery RT ANKLE X 3 History of bilateral tubal ligation History of cholecystectomy History of colonoscopy History of dilatation and curettage History of esophagogastroduodenoscopy (EGD) History of hysterectomy History of lumpectomy of left breast History of open reduction and internal fixation (ORIF) procedure RIGHT ANKLE History of surgery TO REMOVE CALCIUM DEPOSIT FROM BACK History of tooth extraction all teeth Family History Father Family history of diabetes mellitus Other No family history of adverse response to anesthesia Social History Smoking Status: Current every day smoker Tobacco Type: Cigarettes Cigarettes Per Day: 10-20; Second Hand Exposure: No; Hx Alcohol Use: No Hx Substance Use: No Preferred Language: Albanian Communication Ability: Effective Senior Group Manager Required: No Beliefs That Will Affect Care: None Current Living Situation: Alone Current Living Situation Comment: appartment; handicap Other Information That Helps Us Care for You: No Feels Safe at Home: Yes Assistive Devices: None Assistive Devices Comment: Has power scooter she uses occasionally Review of Systems Review of Systems: ROS: Gen: Denies weakness, fevers, weight loss Eyes: No eye redness, or pain, no recent vision changes Resp: No SOB, no cough Cardio: No palpitations/irregular beats, no chest pain GI: + abdominal pain, + N/V prior to arrival : Denies pain on urination Skin: No jaundice, itching or new rashes Physical Exam Constitutional: well developed, + disheveled (somewhat) and cooperative Eyes: PERRL, conjunctivae normal, anicteric sclerae ENMT: external ear and nose normal, oropharynx normal Neck: trachea midline, no thyromegaly Respiratory: normal respiratory effort, lungs clear to auscultation Cardiovascular: RRR, no murmur, no edema Gastrointestinal (Abdomen): Inspection/Auscultation: abdomen normal to inspection and + abdomen distended (mild) Percussion/Palpation: + abdomen tender (epigastric and periumbilical ) and abdomen soft; abdomen not firm Skin: no rashes, warm and dry Neurologic: PERRL, EOMI, accommodation nl, no face palsy, no dysarthria Psychiatric: A+Ox3, euthymic affect Lymphatic: no cervical or axillary lymphadenopathy Results & Data ([facility]) Vital Signs (Past 12 Hours) Vital Signs Temp Pulse Pulse Resp BP BP Pulse Ox 10/11/20 10:30 77 16 138/79 96 10/11/20 10:15 79 16 118/89 99 10/11/20 10:00 81 16 129/79 94 10/11/20 09:17 36.8 C 85 18 159/99 H 94 10/11/20 07:09 36.8 C 82 18 129/83 92 Laboratory Results WBC 10.4, Hb 125, Hct 37, Platelets 285, Na 140, K 3.4, BN 7, Cr 0.4, glucose [address] abd/pelvis w IV, no oral contrast on 10/10/20 1. No evidence of bowel obstruction. No evidence of free air 2. Colonic diverticulosis. No evidence of acute diverticulitis. Normal appendix. 3. 4 cm right adnexal cystic lesion likely ovarian. This measured 3 cm in November 2014 4. Mild pancreatic head enlargement, and infiltration of the fat surrounding the pancreatic head and medial duodenum. Clinical correlation regards to a pancreatitis is recommended. 5. Mild central biliary ductal prominence, likely secondary to a reservoir effect from prior cholecystectomy (1) Acute pancreatitis Acute pancreatitis complication: unspecified Pancreatitis type: unspecified pancreatitis type Qualified Code(s): K85.90 - Acute pancreatitis without necrosis or infection, unspecified
[2020-10-11] MEDS ORDERED: HYDROmorphone INJ 0.5 MG/0.5 ML SYR IV STA (16:59)
--- NOTE | 2020-10-11 17:08 | Hospitalist Progress Note ---
Date of Service October 11, 2020 Assessment & Plan (1) Pancreatitis: Continues to have epigastric pain. Interim maintenance IV fluids. Pain medication/antiemetics. Continue with clear liquid diet Lipase 277 on admission; 481 this morning. Appreciate gastroenterology input. Status post EGD this morning. Proceed with scheduled colonoscopy as an outpatient If diarrhea recurs, plan to obtain C. difficile and culture. (2) Diabetes mellitus, type 2: -A1c 7.5 from 04/25/2020, check A1c with a.m. labs -Continue Lantus 40 units at bedtime, hold Metformin, hold Trulicity, takes on Mondays. -ISS with Accu-Cheks AC HS and Q6H while n.p.o. (3) HTN (hypertension): -Continue lisinopril 2.5 daily (4) Hypothyroidism: -Continue levothyroxine 150 mcg daily (5) Schizoaffective disorder: -Follows with Dr. Jimenez as an outpatient with psychiatry -Continue Cymbalta, hydroxyzine, Seroquel, Flexeril -be cautious with the use of benzodiazepines -Check tox screen (6) Fibromyalgia: Continue Flexeril (7) Anxiety: -Continue anxiolytics as above (8) Hepatitis C: -Status post Harvoni treatment, SVR achieved 01/18/2016 (9) DVT prophylaxis: - teds, ambulatory CODE: Full code Dispo: From home (10) Chronic diarrhea: (11) Acute pancreatitis: Admission and Anticipated Discharge Date Admission Date: October 10, 2020 Subjective Patient was seen post EGD. Doing okay but continues to have epigastric discomfort. Describes the pain as 7 out of 10, sharp in nature and radiating to the right side into the back. Denies feeling nauseous at the moment. Denies any chest pain or any shortness of breath. Denies any diarrhea or dysuria. Review of Systems Review of Systems: All systems reviewed & are unremarkable except as noted in HPI & below Physical Exam Physical Exam: General: A&Ox3 HENT: NCAT, MMM, EOMI Eyes: PERRLA Neck: Supple, normal range of motion CVS: normal rate and rhythm Resp: b/l good breath sounds Abdomen: Soft, non-distended, minimal epigastric tenderness Extremities: absence of any edema Neuro: face symmetric, no focal deficit Skin: no rashes/lesions/errythema MSK: no joint swelling/erythema Results & Data Results & Data ([facility]) Vital Signs (Past 12 Hours) Vital Signs Temp Pulse Pulse Resp BP BP Pulse Ox 10/11/20 16:15 36.7 C 77 18 163/96 H 95 10/11/20 10:30 77 16 138/79 96 10/11/20 10:15 79 16 118/89 99 10/11/20 10:00 81 16 129/79 94 10/11/20 09:17 36.8 C 85 18 159/99 H 94 10/11/20 07:09 36.8 C 82 18 129/83 92 (1) Hepatitis C Hepatic coma status: without hepatic coma Viral hepatitis chronicity: unspecified Qualified Code(s): B19.20 - Unspecified viral hepatitis C without hepatic coma (2) Acute pancreatitis Acute pancreatitis complication: unspecified Pancreatitis type: unspecified pancreatitis type Qualified Code(s): K85.90 - Acute pancreatitis without necrosis or infection, unspecified
[2020-10-11] MEDS: METOCLOPRAMIDE HCL 5 MG TABLET PO SCH ×2 (17:28→19:56)
[2020-10-11] MEDS: NICOTINE 7 MG/24 HR TDSY TD SCH (19:48)
[2020-10-11] MEDS: SIMVASTATIN 20 MG TAB PO SCH (19:56)
[2020-10-11] MEDS: NYSTATIN POWDER 15GM BTL EXT PRN (19:58)
[2020-10-11] MEDS: INSULIN GLARGINE SOLOSTAR 100 UNITS/ML 3 ML PEN SC SCH (21:09)
[2020-10-11] MEDS: QUEtiapine FUMARATE 100 MG TABLET PO SCH (21:16)
[2020-10-12] MEDS: CARBOHYDRATES FOR HYPOGLYCEMIA PO PRN ×3 (01:39→11:47)
[2020-10-12] MEDS: GABAPENTIN 800 MG TAB PO PRN ×2 (01:49→09:23)
[2020-10-12] MEDS: LEVOTHYROXINE SODIUM 175 MCG TABLET PO SCH (06:22)
[2020-10-12 07:26] LABS: Hematocrit (blood only) 34.7 % (37-47); Hemoglobin 11.3 g/dL (12.0-16.0); Mean Corpuscular Hemoglobin 29.8 pg (25-34); Mean Corpuscular Hgb Conc 32.6 g/dL (32-36); Mean Corpuscular Volume 91.6 fL (80-100); Mean Platelet Volume 9.8 fL (7.4-10.4); Platelet Count 263 K/uL (130-400); RDW Coefficient of Variation 13.4 % (11.5-14.5); RDW Standard Deviation 44.5 fL (36.4-46.3); Red Blood Count 3.79 M/uL (4.2-5.4); White Blood Count 8.96 K/uL (4.8-10.8)
[2020-10-12 07:56] LABS: Albumin Level 2.3 gm/dl (3.4-5.0); BUN Creatinine Ratio 9.5 (10-20); Calcium 8.2 mg/dl (8.5-10.1); Creatinine Clr Calc Pharmacy 213.1 ml/min; Est GFR (African American) 140.4; Est GFR (Non-African American) 121.1; Potassium 3.5 mmol/L (3.5-5.1)
[2020-10-12 07:59] LABS: Albumin Globulin Ratio 0.7 (0.9-2); Bilirubin,Total 0.3 mg/dl (0.2-1); Globulin 3.5 gm/dl (2.5-4.0); Total Protein 5.8 gm/dl (6.4-8.2)
[2020-10-12] MEDS: INSULIN ASPART 100 UNITS/ML 3 ML PEN SC SCH ×2 (09:19→12:04)
[2020-10-12] MEDS: METOCLOPRAMIDE HCL 5 MG TABLET PO SCH ×3 (09:20→17:01)
[2020-10-12] MEDS: PANTOprazole 40 MG TAB PO SCH (09:20)
[2020-10-12] MEDS: lisinopril 2.5 MG TAB PO SCH (09:20)
[2020-10-12] MEDS: NYSTATIN SUSP 500,000 U/5 ML UDC PO SCH ×3 (09:21→17:00)
[2020-10-12] MEDS: DULoxetine HCL 60 MG CAP PO SCH (09:21)
[2020-10-12] MEDS: ENOXAPARIN INJ 40 MG/0.4 ML SYR SQ SCH (09:22)
[2020-10-12] MEDS: CYCLOBENZAPRINE HCL 10 MG TAB PO SCH ×2 (10:58→17:00)
--- NOTE | 2020-10-12 13:00 | Gastroenterology Progress Note ---
Date of Service October 12, 2020 Assessment & Plan (1) Acute pancreatitis: Low fat, regular consistency diet. If tolerates eating w/o significant discomfort, may be discharge. Will arrange OP EUS (will change previously scheduled EGD to EGD/EUS). Pancreatitis symptoms are similar to gastroparesis. With her hx of DM, she may have some gastroparesis. Adding metoclopramide 5mg yesterday improved her symptoms. Would continue 5mg BID on discharge. GI will sign off. Please notify us of new/worsening GI issues. (2) Chronic diarrhea: She is C-diff (-) Plan for OP colonoscopy in November as previously scheduled. Admission and Anticipated Discharge Date Admission Date: October 10, 2020 Supervising Physician Co-Signing Physician Notes Attg add: I interviewed and examined pt, reviewed chart and labs. Pt with near complete resolution of abdominal pain, resumption of appetite. She has little pain today, and karina PO. She tells me that she feels the Reglan may have helped her. Would consider outpt w/u for gastroparesis, continuation of low dose Reglan as outpt. OK for d/c home. Subjective 60 Female, admitted on 10/10 with pancreatitis (lipase 481, and CT with suggestion of acute pancreatitis). Pt tells me that she had sweats last night and since then no abd pain, only hunger. Review of Systems Review of Systems: ROS: Gen: Denies weakness, fevers, weight loss Eyes: No eye redness, or pain, no recent vision changes Resp: No SOB, no cough Cardio: No palpitations/irregular beats, no chest pain GI: + abdominal pain, + N/V prior to arrival : Denies pain on urination Skin: No jaundice, itching or new rashes Physical Exam Constitutional: WD/WN, vitals as above + obese, well groomed and cooperative Eyes: PERRL, conjunctivae normal, anicteric sclerae ENMT: external ear and nose normal, oropharynx normal Neck: trachea midline, no thyromegaly Respiratory: normal respiratory effort, lungs clear to auscultation Cardiovascular: RRR, no murmur, no edema Gastrointestinal (Abdomen): normal bowel sounds, soft, nontender, no hepatosplenomegaly Percussion/Palpation: abdomen not firm Skin: no rashes, warm and dry Neurologic: PERRL, EOMI, accommodation nl, no face palsy, no dysarthria Psychiatric: A+Ox3, euthymic affect Lymphatic: no cervical or axillary lymphadenopathy Results & Data ([facility]) Vital Signs (Past 12 Hours) Vital Signs Temp Pulse Resp BP Pulse Ox 10/12/20 07:15 36.9 C 70 20 121/71 91 10/12/20 02:25 36.4 C L 70 16 112/60 95 Laboratory Results WBC 8.9, Hb 11.3, Hct 24.7, Plts 263, Na 142, K 3.5, BUN 3, Cr 0.3, glucose [address] with IV contrast only 10/10/20: 1. No evidence of bowel obstruction. No evidence of free air 2. Colonic diverticulosis. No evidence of acute diverticulitis. Normal appendix. 3. 4 cm right adnexal cystic lesion likely ovarian. This measured 3 cm in November 2014 4. Mild pancreatic head enlargement, and infiltration of the fat surrounding the pancreatic head and medial duodenum. Clinical correlation regards to a pancreatitis is recommended. 5. Mild central biliary ductal prominence, likely secondary to a reservoir effect from prior cholecystectomy (1) Acute pancreatitis Acute pancreatitis complication: unspecified Pancreatitis type: unspecified pancreatitis type Qualified Code(s): K85.90 - Acute pancreatitis without necrosis or infection, unspecified
--- NOTE | 2020-10-12 14:59 | Discharge Summary ---
Date of Service October 12, 2020 Admission HPI Per Admitting Provider This is a 60-year-old female with PMHx of HTN, HLD, DM type II, history of breast cancer in 2007 status post lumpectomy, hypothyroidism, anxiety, depression, schizoaffective disorder, lumbar disc herniation with radiculopathy, who presents with over 1 week of abdominal epigastric region pain and which goes straight through to her back. Reports the pain is worse after she eats or drinks anything. She also has been experiencing loose mucous bowel movements in the past week. Reports her oral intake is very poor, but has been able to drink liquids. Patient has complaints of nausea, unrelieved with Zofran. Her anxiety has been quite bad with all of this, but is slightly improved with marijuana use. She rolls her own cigarettes, and has been smoking less of them per day. Patient denies ever having an episode like this before. Denies any recent undercooked or raw food consumption, no medication changes, denies alcohol or other illicit substances, except marijuana use as above. Patient has been following with Dr. Jimenez, psychiatry as an outpatient however reports that she is out of Ativan p.o. and that her anxiety has been quite worse, she reports that "he dropped me when my insurance changed". Ativan is not listed on her medication list. Admission Exam Per Admitting Provider General: awake, alert, no apparent distress, + obese BMI 36.9 Head: Normocephalic, atraumatic ENT: PERRL, EOMI, no pharyngeal exudate, + endentulous mucous membranes dry, + thrush on tongue Chest: Clear to auscultation, on room air, no adventitious breath sounds Cardiac: Regular rate and rhythm, no murmur, no JVD, normal peripheral pulses, good capillary refill Abdominal: NABS x 4 quadrants, soft, nondistended, minimal tenderness to palpat ion in epigastric region, no rebound or guarding Extremities: Normal inspection, no peripheral edema or erythema, calfs nontender to palpation Psych: Anxious mood and affect Skin: Multiple areas of lesions over extremities, appears to be from picking Neuro: AAO x 3, strength intact bilaterally and rated 5/5, no motor deficits, speech is clear, no peripheral sensory deficits Principal Diagnosis Acute pancreatitis Discharge Exam Constitutional + well hydrated and + obese; no acute distress Eyes PERRL, conjunctivae normal, anicteric sclerae ENMT external ear and nose normal, oropharynx normal Respiratory normal respiratory effort, lungs clear to auscultation Cardiovascular Rate/Rhythm: regular rate and regular rhythm S1 S2 Gastrointestinal (Abdomen) normal bowel sounds, soft, nontender, no hepatosplenomegaly Musculoskeletal no cyanosis or clubbing, extremities motor strength 5/5 Neurologic PERRL, EOMI, accommodation nl, no face palsy, no dysarthria Psychiatric A+Ox3, euthymic affect Discharge Data Allergies Allergy/AdvReac Type Severity Reaction Status Date / Time varenicline AdvReac Intermediate NIGHTMARES Verified 10/10/20 15:17 Nliokfa-Esl-Htp Reductase AdvReac Unknown intolerance Verified 10/11/20 00:47 Inhibitor Consultations 10/10/20 15:35 ED Decision to Admit Stat 10/11/20 00:54 Consult Gastroenterology Routine Procedures Performed Operation Date: 10/11/20 17:00 Actual Procedures p EGD Biopsy Cytology - Radhika Arce MD Ordered Studies 10/10/20 14:21 CT abd pelvis IV con only Stat FINDINGS: Lower chest: The heart is normal in size and configuration, without pericardial effusion. The lung bases and pleural spaces are clear. Liver: There is minimal central ductal prominence, likely secondary to a prior cholecystectomy. Gallbladder: Surgically absent Spleen: Normal in size and attenuation. Pancreas: There is mild enlargement of the pancreatic head. There is mild infiltration of the fat surrounding the pancreatic head and adjacent duodenum. Clinical correlation with regards to pancreatitis is recommended. Correlation w ith appropriate biochemical markers is advocated. Adrenal glands: Unremarkable. Kidneys: There is symmetric renal cortical enhancement. The kidneys are normal in size without hydronephrosis. Bowel: There are no transition zones to indicate bowel obstruction. There is colonic diverticulosis. There is no evidence of acute diverticulitis. The appendix appears normal. Peritoneum: There is no intraperitoneal free air or abdominal ascites. Vasculature: The abdominal aorta is normal in course and caliber. Adenopathy: None. Pelvic viscera: The uterus appears surgically absent. Skeletal structures: There is a 4 cm right adnexal cystic lesion likely ovarian IMPRESSION: 1. No evidence of bowel obstruction. No evidence of free air 2. Colonic diverticulosis. No evidence of acute diverticulitis. Normal appendix. 3. 4 cm right adnexal cystic lesion likely ovarian. This measured 3 cm in November 2014 4. Mild pancreatic head enlargement, and infiltration of the fat surrounding the pancreatic head and medial duodenum. Clinical correlation regards to a pancreatitis is recommended. 5. Mild central biliary ductal prominence, likely secondary to a reservoir effect from prior cholecystectomy Hospital Course (1) Acute pancreatitis: (2) Pancreatitis: On admission, HR was 107, WBC 14 SIRS of non-infectious origin, secondary to acute pancreatitis Lipase 277 on admission increased to 481 CT abdomen and pelvis showed mild pancreatic head enlargement with infiltration of the fat surrounding the pancreatic head and medial duodenum Patient was evaluated by gastroenterology Had EGD which showed normal esophagus, mild patchy erythema and mid body of the stomach with few minor erosions and mild patchy erythema in the duodenal bulb suggestive of mild erosive gastritis. Patient symptoms improved. Discussed with gastroenterology today. Plan to have EGD with EUS outpatient. Patient discharged on few day doses of Reglan with meals (3) Diabetes mellitus, type 2: A1c 7.5 from 04/25/2020, A1c from 10/11/20 was 7.2 Continue home diabetic regimen (4) HTN (hypertension): Continue lisinopril 2.5 daily (5) Hypothyroidism: Continue levothyroxine 150 mcg daily (6) Schizoaffective disorder: Follows with Dr. Jimenez as an outpatient with psychiatry Continue Cymbalta, hydroxyzine, Seroquel, Flexeril (7) Fibromyalgia: Continue Flexeril (8) Anxiety: Continue anxiolytics as above (9) Hepatitis C: Status post Harvoni treatment, SVR achieved 01/18/2016 (10) Chronic diarrhea: c diff negative Total Time Total Time Spent Total Time Spent (In Minutes): 45 Total Time Includes: Examination of the Patient, Discharge Planning, Medication Reconciliation and Communication With Other Providers Discharge Plan Discharge Items Patient Disposition: Home - Self-Care Reason For Visit: N/V, ABD PAIN PANCREATITIS Discharge Diagnosis: Acute pancreatitis Activity: Resume your previous activity Non-emergency contact: Primary Care Provider and [facility] Call non-emergency contact if: you have any medication questions and your symptoms worsen Follow-up/Referrals: Ania Rice MD [Primary Care Provider] - Diet: Carb Consistent or DM2 Addtl Attending Provider Instructions: Ms Gates. You came to the hospital complaining of abdominal pain. You were evaluated and found to have acute pancreatitis which was managed medically with the [facility]. You had an endoscopy (EGD) while inpatient. However, you still need to have outpatient endoscopy with EUS with the [facility]. Your symptoms improved. You are being discharged home with a few days of reglan. Please follow up with your Primary Doctor and the [facility]. Please take your medications as prescribed. It was a pleasure taking care of you. Pending Studies at Discharge: No Stand-Alone Forms: My [facility] Icard CMGE, Smoking Cessation Medications and DC Order Prescriptions: New metoclopramide HCl 5 mg Tablet 5 mg PO AC Qty: 9 RF: 0 Continued quetiapine [Seroquel] 100 mg Tablet 100 mg PO HS RF: 0 duloxetine 60 mg Capsule,Delayed Release(Dr/Ec) 60 mg PO BID RF: 0 simvastatin 20 mg Tablet 20 mg PO HS RF: 0 albuterol sulfate 90 mcg/actuation Aerosol Powdr Breath Activated 2 inh INHALATION Q6H PRN (Reason: SHORT OF BREATH) RF: 0 Lantus U-100 Insulin 100 unit/mL Solution 40 unit SUBCUT QPM RF: 0 gabapentin [Neurontin] 800 mg tablet 800 mg PO TID PRN (Reason: NEEDED PER PT) RF: 0 acetaminophen [Tylenol Extra Strength] 500 mg Tablet 1,000 mg PO DIRECTED PRN (Reason: Pain) RF: 0 levothyroxine 175 mcg Tablet 175 mcg PO QAM RF: 0 metformin 1,000 mg Tablet 1,000 mg PO QAM RF: 0 hydroxyzine HCl 25 mg Tablet 25 mg PO TID PRN (Reason: NEEDED) RF: 0 lisinopril 2.5 mg Tablet 2.5 mg PO QAM RF: 0 melatonin 5 mg Tablet 15 mg PO HS RF: 0 MidNite 1.5-22 mg-mcg Tablet, Chewable Dispersible 1 ea PO HS PRN (Reason: Sleep) RF: 0 IBgard 90 mg Capsule,Delayed,Extend.Release 90 mg PO QAM RF: 0 cyclobenzaprine 10 mg tablet 10 mg PO TID RF: 0 Trulicity 3 mg/0.5 ml 3 mg SC WK RF: 0 furosemide 20 mg tablet 20 mg PO DAILY PRN (Reason: Edema) RF: 0 omeprazole 20 mg 20 mg PO DAILY RF: 0 Discharge Orders: Discharge Order (Routine); Ordered 10/12/20 Ordered By: Stefany Murphy/Other Patient Handouts: Managing Type 2 Diabetes, Managing Diabetes: The A1C Test Admission Data Admit Date/Time: 10/10/20 16:46 Attending Provider: Stefany Cole I. Admit Provider: Sheree Butler Primary Care Provider: Ania Rice Other Providers: Sheree Butler ; Radhika Arce ; Simin Leonardo Other Interventions: Discharge Summary Assessment (RN) Last Done: 10/12/20 15:08
[2020-10-12] MEDS ORDERED: INSULIN GLARGINE SOLOSTAR 100 UNITS/ML 3 ML PEN SC SCH (21:00)
[2020-10-13 17:46] LABS: Codeine Urine NEGATIVE ng/mL (<50); Hydrocodone Urine NEGATIVE ng/mL (<50); Hydromor Urine NEGATIVE ng/mL (<50); Marijuana Quant, GCMS Urine 1180 ng/mL (<5); Morphine Urine 8040 ng/mL (<50); Norhydrocodone Conf Ur NEGATIVE ng/mL (<50); Noroxycodone Urine NEGATIVE ng/mL (<50); Oxycodone Urine NEGATIVE ng/mL (<50); Oxymorph Urine NEGATIVE ng/mL (<50)
== END 2020-10-12 18:17 | disposition home or self-care (01) ==
LOC: ED 13:11 → SUATTDRO 16:46 → 2W 16:46 → INTOOBSV 16:46 → 2W 18:17 → 3N 10-11 00:43

== ENCOUNTER 2022-12-15 17:19 | Inpatient (IN) ==
[2022-12-15] MEDS ORDERED: ALBUTEROL 0.083% NEBU SOLN 3 ML VIAL NEB STA (18:08)
[2022-12-15 18:09] LABS: Basophils # (auto) 0.06 K/uL (0-0.2); Basophils % (auto) 0.6 %; Eosinophils # (auto) 0.32 K/uL (0-0.50); Eosinophils % (auto) 2.9 %; Hematocrit (blood only) 41.9 % (37.0-47.0); Hemoglobin 13.9 g/dl (12.0-16.0); Immature Granulocytes # (auto) 0.02 K/uL (0.01-0.20); Immature Granulocytes % (auto) 0.2 %; Lymphocytes % (auto) 24.8 %; Mean Corpuscular Hemoglobin 28.4 pg (25.0-34.0); Mean Corpuscular Hgb Conc 33.2 g/dL (32.0-36.0); Mean Corpuscular Volume 85.5 fL (80.0-100.0); Mean Platelet Volume 9.7 fL (9.4-12.4); Monocytes # (auto) 1.06 K/uL (0.11-0.59); Monocytes % (auto) 9.7 %; Neutrophils # (auto) 6.73 K/uL (1.40-6.50); Neutrophils % (auto) 61.8 %; Platelet Count 402 K/uL (130-400); RDW Coefficient of Variation 15.9 % (11.5-14.5); RDW Standard Deviation 49.5 fL (36.4-46.3); White Blood Count 10.89 K/ul (4.8-10.8)
--- NOTE | 2022-12-15 18:11 | Emergency Department Note ---
Impression & Plan Hypoxic, Chest pain, Lower back pain ED Provider Note NAME: RONY MONTGOMERY AGE: 62 SEX: F : 1960 ARRIVES VIA: Ambulance INFORMANT: Patient ED PROVIDER(S): Michi Treadwell DO CHIEF COMPLAINT: Chest pain and back pain HPI: Patient is a 62-year-old female with a past medical history of pancreatitis, diabetes, hepatitis C, anxiety, fibromyalgia, hyperlipidemia and schizoaffective disorder presents the ER for left-sided chest pain. It radiates from the ear down into her left axilla. It is reproducible. Worse with movement of her left upper extremity. She also has right lower back pain. This is worse with twisting turning and bending. Is worse on palpation. She does note some mild shortness of breath. No belly pain. No nausea, vomiting, or diarrhea. No dysuria, urgency, or frequency. No other exacerbating or remitting factors. PAST MEDICAL HISTORY:See Below PAST SURGICAL HISTORY:See Below FAMILY HISTORY:See Below SOCIAL HISTORY:See Below HOME MEDICATIONS:See Below ALLERGIES:See Below VITALS:See Below PHYSICAL EXAMINATION: GENERAL: Sitting up in bed, alert, well appearing, well nourished, no distress, non-toxic EYE EXAM: normal conjunctiva. OROPHARYNX: no exudate, no erythema, lips, buccal mucosa, and tongue normal and mucous membranes are moist NECK: supple, no nuchal rigidity, no adenopathy, non-tender CHEST: Reproducible left anterior chest wall pain tracking into the axilla same as stated complaint and worse with movement of the left upper extremity LUNGS: Clear to auscultation. Normal chest wall mechanics HEART: no murmurs, S1 normal and S2 normal ABDOMEN: abdomen soft, non-tender, normo-active bowel sounds, no masses, no rebound or guarding. UPPER EXTREMITIES: upper extremities are grossly normal. LOWER EXTREMITIES: No pitting edema. NEURO EXAM: Normal sensorium, cranial nerves II-XII grossly intact, normal speech, no gross weakness of arms, no gross weakness of legs. MEDICAL DECISION MAKING: Patient is a 62-year-old female who presents ER for above-stated complaint. IV was established blood work was obtained. Labs show mild leukocytosis of 10.8. No anemia. Dimer was negative. BMP along with LFTs bilirubin and lipase is unremarkable. Troponin was negative. Chest x-ray was clean. Patient was given neb treatment and steroids. She was updated bedside. Pain on the left side was reproducible. Troponin was negative with pain that has been present for greater than 8 hours. Do not feel this consistent with ACS. Negative dimer did not explore PE any further. Patient was updated bedside. Patient was discussed with the hospitalist for further evaluation management treatment. Patient remained on nasal cannula throughout her stay in the ER due to the hypoxia. Triage Nursing notes reviewed. Limited review of prior medical records performed Vital Signs: reviewed and remarkable for HTN Differential diagnosis: Cardiac ischemia, aortic dissection, pulmonary embolism, pneumothorax, pneumonia, pericarditis, myocarditis, esophageal rupture, GERD, cholecystitis, pancreatitis, musculoskeletal, as well as other pathologies. ER treatment provided: See below Diagnostics interpreted by me include EKG and cardiac monitoring as listed below: -Cardiac Monitoring: An order was placed for continuous cardiac monitoring. The monitor shows a rate of 80 with sinus rhythm. -ECG: Sinus rhythm rate of 78 Left axis Right bundle branch block QTc 467 No significant change from previous -Laboratory studies:Interpreted by me as stated above in MDM and shown below. Imaging studies: Xrays: As interpreted by me: Portable AP upright 1 view chest shows no pneumonia CTs show: none Consultation(s): As described in MDM Procedures:none Critical Care: I have personally spent 32 minutes of critical care time in the direct management of this patient. This includes bedside care, interpretation of diagnostic studies, and testing, discussion with consultants, patient, and family members, and other required patient management activities. This 32 minutes is in excess of all separately billable procedures. Past Med/Surg History Medical History Anxiety Chronic obstructive pulmonary disease Depression Diabetes mellitus, type 2 IDDM Fibromyalgia GERD (gastroesophageal reflux disease) History of recent hospitalization Pancreatitis (09/2020; [facility]) Hx of Green's palsy Remote hx, residual occasional drooping of left side of mouth Hx of hepatitis C s/p treatment HX: breast cancer Left breast (2012) s/p radiation, lumpectomy and oral chemo Hyperlipidemia Hypertension Questionable HTN hx, appears Lisinopril for renal protection 2/2 diabetes Osteoarthritis Peripheral neuropathy Legs, feet Schizoaffective disorder Surgical History History of ankle surgery Right ankle x3 History of bilateral tubal ligation History of cholecystectomy History of colonoscopy History of dilatation and curettage History of esophagogastroduodenoscopy (EGD) EGD (10/11/20) MAC at [facility] History of hysterectomy History of lumpectomy of left breast History of open reduction and internal fixation (ORIF) procedure Right ankle History of surgery Calcium deposit removal from back History of tooth extraction All teeth Family History Father Family history of diabetes mellitus Other No family history of adverse response to anesthesia Social History Smoking Status: Current every day smoker Tobacco Type: Cigarettes Cigarettes Per Day: 10-20 cigarettes/day; Second Hand Exposure: Yes; Do You Dip or Chew Tobacco: No; Hx Alcohol Use: No Hx Substance Use: Yes Last Used Substance: Days (ago) Last Used Substance Other:: 1x at bedtime Substance Use Type Other:: (ADVISED) Preferred Language: Palauan Communication Ability: Effective Field Service Engineer Required: No Beliefs That Will Affect Care: None Current Living Situation: Family Current Living Situation Comment: appartment; handicap Feels Safe at Home: Yes Assistive Devices: Glasses and Walker Allergies Allergies Allergy/AdvReac Type Severity Reaction Status Date / Time varenicline AdvReac Intermediate Nightmares Verified 12/15/22 22:06 Home Meds Home Medications Medication Instructions Recorded Confirmed duloxetine 60 mg capsule,delayed 60 mg PO QAM 08/21/18 12/15/22 release simvastatin 20 mg tablet 20 mg PO 3XWK 08/21/18 12/15/22 insulin glargine 100 unit/mL 50 unit subcut QPM 10/28/18 12/15/22 subcutaneous solution (Lantus U-100 Insulin) cyclobenzaprine 10 mg tablet 10 mg PO BID PRN Muscle Pain 10/10/20 12/15/22 furosemide 20 mg tablet 20 mg PO DAILY 10/10/20 12/15/22 omeprazole 40 mg capsule,delayed 40 mg PO QAM 02/08/21 12/15/22 release albuterol sulfate 90 mcg/actuation 2 puff inhalation Q6H PRN 12/15/22 12/15/22 aerosol inhaler Shortness Of Breath Or Wheezing chlorhexidine gluconate 4 % 1 applic topical DAILY 12/15/22 12/15/22 topical liquid (Hibiclens) clindamycin phosphate 1 % topical 1 applic topical BID PRN .FLARE UP 12/15/22 12/15/22 gel diclofenac sodium 1 % topical gel 4 g topical BID PRN Pain 12/15/22 12/15/22 diphenhydramine HCl 25 mg tablet 50 mg PO HS 12/15/22 12/15/22 (Benadryl Allergy) empagliflozin 10 mg tablet 10 mg PO QAM 12/15/22 12/15/22 (Jardiance) fluticasone propionate 50 2 spray intranasal QAM 12/15/22 12/15/22 mcg/actuation nasal spray,suspension gabapentin 800 mg tablet 800 mg PO TID 12/15/22 12/15/22 hydroxyzine HCl 50 mg tablet 50 mg PO BID 12/15/22 12/15/22 levothyroxine 175 mcg tablet 175 mcg PO DAILY 12/15/22 12/15/22 lorazepam 1 mg tablet 1 mg PO TID 12/15/22 12/15/22 metformin 500 mg tablet,extended 1,000 mg PO BID 12/15/22 12/15/22 release 24 hr nystatin 100,000 unit/gram topical 1 applic topical BID PRN 12/15/22 12/15/22 powder .IRRITATION ondansetron HCl 4 mg tablet 4 mg PO Q8 PRN Nausea 12/15/22 12/15/22 prazosin 2 mg capsule 2 - 4 mg PO HS PRN .NIGHTMERES 12/15/22 12/15/22 quetiapine 200 mg tablet 200 mg PO HS 12/15/22 12/15/22 quetiapine 50 mg tablet 50 mg PO QAM 12/15/22 12/15/22 trazodone 150 mg tablet 300 mg PO HS 12/15/22 12/15/22 Previous Rx's Medication Instructions Recorded potassium chloride 20 mEq 20 meq PO BID #4 tabs 02/06/22 tablet,extended release Results & Data (ED) Vital Signs Vital Signs - 24 hr 12/15/22 17:29 12/15/22 17:36 12/15/22 17:30 Temperature 37 C Temperature Source Oral Pulse Rate 83 75 Respiratory Rate 20 Blood Pressure 132/102 H Blood Pressure Mean 112 Pulse Oximetry 89 L 89 L Oxygen Delivery Method Room Air Nasal Cannula Oxygen Flow Rate 0 0 Sepsis Recent Fever Within 48 Hours No Sepsis New/Unexplained Change in Mental Status N/A Sepsis Action Taken by Nursing No Action Required Oxygen Flow Rate - Titration 3 Pulse Oximetry Post Tiitration 93 12/15/22 17:31 12/15/22 18:00 12/15/22 18:31 Temperature Temperature Source Pulse Rate 74 70 78 Respiratory Rate 14 16 19 Blood Pressure 179/135 H 164/101 H 105/78 Blood Pressure Mean 149 122 87 Pulse Oximetry 96 96 99 Oxygen Delivery Method Nasal Cannula Nasal Cannula Nebulizer Oxygen Flow Rate 3 3 7 Sepsis Recent Fever Within 48 Hours Sepsis New/Unexplained Change in Mental Status Sepsis Action Taken by Nursing Oxygen Flow Rate - Titration Pulse Oximetry Post Tiitration 12/15/22 19:00 12/15/22 19:31 Temperature Temperature Source Pulse Rate 72 72 Respiratory Rate 18 24 Blood Pressure 120/90 129/93 Blood Pressure Mean 100 105 Pulse Oximetry 98 96 Oxygen Delivery Method Nasal Cannula Nasal Cannula Oxygen Flow Rate 3 3 Sepsis Recent Fever Within 48 Hours Sepsis New/Unexplained Change in Mental Status Sepsis Action Taken by Nursing Oxygen Flow Rate - Titration Pulse Oximetry Post Tiitration Laboratory Data 12/15/22 17:29 12/15/22 17:29 Lab Results 12/15/22 12/15/22 12/15/22 Range/Units 17:29 17:29 18:02 WBC 10.89 H (4.8-10.8) K/ul RBC 4.90 (4.20-5.40) M/uL Hgb 13.9 (12.0-16.0) g/dl Hct 41.9 (37.0-47.0) % MCV 85.5 (80.0-100.0) fL MCH 28.4 (25.0-34.0) pg MCHC 33.2 (32.0-36.0) g/dL RDW Std Deviation 49.5 H (36.4-46.3) fL RDW Coeff of Jessy 15.9 H (11.5-14.5) % Plt Count 402 H (130-400) K/uL MPV 9.7 (9.4-12.4) fL Immature Gran % (Auto) 0.2 % Neut % (Auto) 61.8 % Lymph % (Auto) 24.8 % Arthur % (Auto) 9.7 % Eos % (Auto) 2.9 % Baso % (Auto) 0.6 % Neut # (Auto) 6.73 H (1.40-6.50) K/uL Lymph # (Auto) 2.70 (1.2-3.4) K/uL Arthur # (Auto) 1.06 H (0.11-0.59) K/uL Eos # (Auto) 0.32 (0-0.50) K/uL Baso # (Auto) 0.06 (0-0.2) K/uL Immature Gran # (Auto) 0.02 (0.01-0.20) K/uL D-Dimer 340 (0-500) ug/L FEU Sodium 138 (136-145) mmol/L Potassium 4.2 (3.5-5.1) mmol/L Chloride 101 (98-107) mmol/L Carbon Dioxide 28 (21-32) mmol/L Anion Gap 9 (3-11) BUN 17 (6-23) mg/dl Creatinine 0.66 (0.6-1.2) mg/dl Est Cr Clr Drug Dosing 103.5 ml/min Est GFR ( Amer) 111.3 ml/min Est GFR (Non-Af Amer) 96.0 ml/min BUN/Creatinine Ratio 25.8 H (10-20) Glucose 158 H (70-99(Fasting)) mg/dl Calcium 9.0 (8.6-10.3) mg/dl Total Bilirubin 0.4 (0.2-1.0) mg/dl AST 15 (13-39) U/L ALT 9 (7-52) U/L Alkaline Phosphatase 74 (34-104) U/L Troponin I High Sens 4.5 (0-14) pg/ml Total Protein 7.4 (6.0-8.3) gm/dl Albumin 4.1 (3.4-5.0) gm/dl Globulin 3.3 (2.5-4.0) gm/dl Albumin/Globulin Ratio 1.2 (0.9-2) Lipase 5 L (11-82) U/L SARS-CoV-2, RNA, NAAT (NEGATIVE) 12/15/22 Range/Units 19:32 WBC (4.8-10.8) K/ul RBC (4.20-5.40) M/uL Hgb (12.0-16.0) g/dl Hct (37.0-47.0) % MCV (80.0-100.0) fL MCH (25.0-34.0) pg MCHC (32.0-36.0) g/dL RDW Std Deviation (36.4-46.3) fL RDW Coeff of Jessy (11.5-14.5) % Plt Count (130-400) K/uL MPV (9.4-12.4) fL Immature Gran % (Auto) % Neut % (Auto) % Lymph % (Auto) % Arthur % (Auto) % Eos % (Auto) % Baso % (Auto) % Neut # (Auto) (1.40-6.50) K/uL Lymph # (Auto) (1.2-3.4) K/uL Arthur # (Auto) (0.11-0.59) K/uL Eos # (Auto) (0-0.50) K/uL Baso # (Auto) (0-0.2) K/uL Immature Gran # (Auto) (0.01-0.20) K/uL D-Dimer (0-500) ug/L FEU Sodium (136-145) mmol/L Potassium (3.5-5.1) mmol/L Chloride (98-107) mmol/L Carbon Dioxide (21-32) mmol/L Anion Gap (3-11) BUN (6-23) mg/dl Creatinine (0.6-1.2) mg/dl Est Cr Clr Drug Dosing ml/min Est GFR ( Amer) ml/min Est GFR (Non-Af Amer) ml/min BUN/Creatinine Ratio (10-20) Glucose (70-99(Fasting)) mg/dl Calcium (8.6-10.3) mg/dl Total Bilirubin (0.2-1.0) mg/dl AST (13-39) U/L ALT (7-52) U/L Alkaline Phosphatase (34-104) U/L Troponin I High Sens (0-14) pg/ml Total Protein (6.0-8.3) gm/dl Albumin (3.4-5.0) gm/dl Globulin (2.5-4.0) gm/dl Albumin/Globulin Ratio (0.9-2) Lipase (11-82) U/L SARS-CoV-2, RNA, NAAT NEGATIVE (NEGATIVE) Administered Medications Discontinued Medications Albuterol (Albuterol 0.083% Nebu Soln 3 Ml Vial) 2.5 mg NEB NOW STA; Protocol Stop: 12/15/22 18:09 Last Admin: 12/15/22 18:21 Dose: 2.5 mg Documented By: DM Ketorolac Tromethamine (Ketorolac Tromethamine 15 Mg/Ml Vial) 15 mg IV NOW ONE Stop: 12/15/22 19:20 Last Admin: 12/15/22 19:28 Dose: 15 mg Documented By: DM Methylprednisolone (Methylprednisolone 40 Mg/Ml Vial) 40 mg IV NOW STA Stop: 12/15/22 18:09 Last Admin: 12/15/22 18:22 Dose: 40 mg Documented By: [facility] Morphine Sulfate (Morphine Sulfate 2 Mg/Ml Carp) 2 mg IV NOW STA Stop: 12/15/22 21:50 Last Admin: 12/15/22 21:59 Dose: 2 mg Documented By: DISC PAD GRINDING MACHINE FEEDER Imaging Data Radiologist's Impression: Chest X-Ray 12/15/22 17:58 XR chest 1V portable HISTORY: Chest pain, nonspecific COMPARISON: Chest 06/09/2022. FINDINGS: No pneumothorax. No pleural effusions. The cardiac silhouette is normal in size. No evidence for pulmonary edema. Hazy appearance to the lung bases likely due to the overlapping soft tissue. Otherwise, the lungs are clear. IMPRESSION: No acute process. ACT 112: Negative or not required by law. Electronically signed by: Navi Fiore M.D. 12/15/2022 7:12 PM Discharge Plan Visit Data Chief Complaint: Cardiac Assessment Stated Complaint: EAR PAIN INTO NECK, BACK AND CHEST ED Provider: Michi Treadwell Discharge Problem: Hypoxic, Chest pain, Lower back pain
[2022-12-15 18:29] LABS: Albumin Globulin Ratio 1.2 (0.9-2); Albumin Level 4.1 gm/dl (3.4-5.0); BUN Creatinine Ratio 25.8 (10-20); Bilirubin,Total 0.4 mg/dl (0.2-1.0); Creatinine Clr Calc Pharmacy 103.5 ml/min; Est GFR (African American) 111.3 ml/min; Globulin 3.3 gm/dl (2.5-4.0); Potassium 4.2 mmol/L (3.5-5.1); Total Protein 7.4 gm/dl (6.0-8.3)
[2022-12-15 18:36] LABS: Troponin I High Sensitivity 4.5 pg/ml (0-14)
[2022-12-15 18:44] LABS: D Dimer 340 ug/L FEU (0-500)
--- NOTE | 2022-12-15 19:14 | XRay Report ---
XR chest 1V portable HISTORY: Chest pain, nonspecific COMPARISON: Chest 06/09/2022. FINDINGS: No pneumothorax. No pleural effusions. The cardiac silhouette is normal in size. No evidenc e for pulmonary edema. Hazy appearance to the lung bases likely due to the overlapping soft tissue. O therwise, the lungs are clear. IMPRESSION: No acute process. ACT 112: Negative or not required by law. Electronically signed by: Navi Fiore M.D. 12/15/2022 7:12 PM
[2022-12-15] MEDS ORDERED: KETOROLAC TROMETHAMINE 15 MG/ML VIAL IV ONE (19:19)
[2022-12-15] MEDS ORDERED: MoRPHine SULFATE 2 MG/ML CARP IV STA (21:49)
[2022-12-15] MEDS ORDERED: GLUCAGON FOR INJ 1 MG VIAL SQ PRN (23:44)
[2022-12-15] MEDS ORDERED: CARBOHYDRATES FOR HYPOGLYCEMIA PO PRN (23:44)
[2022-12-15] MEDS ORDERED: DICLOFENAC SOD 1% GEL 100 GM TUBE EXT PRN (23:44)
[2022-12-15] MEDS ORDERED: ACETAMINOPHEN 325 MG TAB PO PRN (23:44)
[2022-12-15] MEDS ORDERED: PRAZOSIN HCL 1 MG CAP PO PRN (23:44)
[2022-12-15] MEDS ORDERED: CYCLOBENZAPRINE HCL 10 MG TAB PO PRN (23:44)
[2022-12-15] MEDS ORDERED: DEXTROSE 50% 50 ML SYRINGE IV PRN (23:44)
[2022-12-15] MEDS ORDERED: ALBUTEROL HFA 8 GM INHALER INH PRN (23:44)
[2022-12-15] MEDS ORDERED: NYSTATIN POWDER 15GM BTL EXT PRN (23:44)
[2022-12-15] MEDS ORDERED: GLUCOSE 40% GEL 15 GM TUBE PO PRN (23:44)
[2022-12-15] MEDS ORDERED: POLYETHYLENE (MIRALAX) 17 GM PACK PO PRN (23:44)
[2022-12-15] MEDS ORDERED: GLUCOSE 10 TAB/TUBE PO PRN (23:44)
--- NOTE | 2022-12-16 00:04 | History and Physical Report ---
DATE OF ADMISSION: 12/15/2022. CHIEF COMPLAINT: Chest pain. HISTORY OF PRESENT ILLNESS: This 62-year-old female with past medical history significant for type 2 diabetes, chronic nonspecific obstructive lung disease, ongoing tobacco abuse, hypertension, morbid obesity, chronic kidney disease, stage III, history of glaucoma, history of schizoaffective disorder, statin intolerance, anxiety state, history of ductal carcinoma in situ, history of hepatitis C antibody test positive, medical marijuana PTSD, major depression, presents with chest pain. The patient says since last night she is having pain in the left axillary region and left-sided chest, severe in nature and with any movement, the pain is also worse. Pain is constant pain . lso having had back pain going on for the last 2 weeks, got worse last night. She has chronic smoker's cough and once in while, she brings whitish phlegm. Denies any shortness of breath, no nausea. She has some headache now. No fevers, no blurred visions. She has left ear pain going on since last couple of months, has some left lower quadrant mild abdominal discomfort. Normal bowel and bladder movements. No swelling at the legs. She says she has a history of both ankle surgeries and could not ambulate for long distance, but she can ambulate okay in the house, lives with her son. ALLERGIES: TO VARENICLINE PAST MEDICAL HISTORY: As mentioned above. PAST SURGICAL HISTORY: Left breast lesion excision for DCIS, colonoscopy, EGD, EGD with biopsy, EGD with endoscopic ultrasound, dental surgery, foot surgery, laparoscopic cholecystectomy, ligation of oviducts, liver biopsy, partial hysterectomy. MEDICATIONS: As per the [facility], the patient is on Flonase 2 sprays into each nostril daily, simvastatin 20 mg p.o. at bedtime, levothyroxine 175 mcg p.o. daily, potassium chloride 20 mEq p.o. at bedtime, Zofran 4 mg p.o. q. 8 hours p.r.n, metformin 1000 mg p.o. b.i.d., albuterol 2 puffs q. 4-6 hours p.r.n., Wellbutrin SR 150 mg p.o. daily, Lasix 20 mg p.o. daily, Lantus 15 units under the skin daily, lorazepam 1 mg p.o. b.i.d., Seroquel 100 mg p.o. at bedtime, cyclobenzaprine 10 mg p.o. b.i.d. p.r.n., gabapentin 800 mg p.o. t.i.d., duloxetine 60 mg p.o. daily, Jardiance 10 mg p.o. daily, omeprazole 40 mg p.o. daily, trazodone 150 mg p.o. at bedtime, DuoNeb p.r.n. FAMILY HISTORY: Significant for son has arthritis, asthma; father has diabetes; mother has lung disorder. SOCIAL HISTORY: Lives with her son. Smokes quarter pack a day for last 40 years. No alcohol use. No drug use. REVIEW OF SYSTEMS: As per HPI. Rest of the review of systems is negative. PHYSICAL EXAMINATION: GENERAL: The patient is obese, not in acute distress. VITAL SIGNS: Temperature 37, pulse 72, respiratory rate 24, blood pressure 120/93, oxygen was 89% on room air, 96% on 3 L. HEENT: Pupils equal, round and reactive to light. Oral mucosa dry. NECK: No JVD. No neck masses. CARDIOVASCULAR: S1 and S2 heard. Regular rate and rhythm. No murmur, no gallop. RESPIRATORY SYSTEM: Normal AP diameter. No accessory muscle use. Mild bilateral rhonchi. No wheezing.Cleft side chest tenderness present ABDOMEN: Soft, bowel sounds present, nontender, no distention. CENTRAL NERVOUS SYSTEM: Alert and oriented. Speech is clear. No facial droop. Obeys simple commands. Moves extremities. EXTREMITIES: No edema. No erythema seen. LABORATORY DATA: WBC 10.8, hemoglobin 13.9, hematocrit 41.9, platelets 402. D- dimer 340. Sodium 138, potassium 4.2, chloride 101, CO2 28, BUN 17, creatinine 0.6, serum glucose 158, calcium 9, total bilirubin 0.4, AST 15, ALT 9, alkaline phosphatase 74. Troponin I high sensitivity 4.5. Lipase 5 SARS-CoV-2 rapid test negative. IMAGING DATA: Chest x-ray, no acute process. EKG, normal sinus rhythm at a rate of 72, left axis deviation, right bundle-branch block, no significant change was found. ASSESSMENT AND PLAN: This 62-year-old female presents with chest pain. 1. Chest pain. Has tenderness to palpation and also on movement in the left axilla and left-sided chest, mostly musculoskeletal. Initial EKG and troponin negative. We will follow serial enzymes, echocardiogram. Keep n.p.o. after midnight. Consult Cardiology in the a.m. for further recommendation. Monitor in the [employer] tele. 2. Mild hypoxia. Requiring oxygen The patient has history of smoking. Possible mild chronic obstructive pulmonary disease exacerbation. Oxygen saturation 88 on room air.Will do short course of steroids, nebs around the clock, p.o. doxycycline. 3. Tobacco abuse. Needs counseling. 4. History of diabetes. Currently, the patient will be n.p.o. after midnight . Will reduce Lantus 20 units at bedtime, insulin sliding scale. Hold metformin. Follow the blood sugars. 5. History of hypertension. Seems to be not on any blood pressure medications. We will monitor the blood pressure. 6. History of hypothyroidism. On Synthroid. We will follow thyroid profile. 7. Chronic kidney disease, stage III. Presently with a creatinine of 0.6. We will follow the labs. 8. Hyperlipidemia. On statin. 9. History of schizoaffective disorder, anxiety disorder, post-traumatic stress disorder, major depression. Continue Wellbutrin, Ativan, Seroquel, duloxetine. 10.. History of hepatitis C antibody positive. Needs followup. 11. Deep venous thrombosis prophylaxis. Heparin subcutaneously. DISPOSITION: Closely monitor in the [employer] tele. PT/OT prior to discharge. Social service to help with discharge planning. Job ID: [id number] MTDD
[2022-12-16] MEDS ORDERED: ALBUT/IPRATROP 3MG/0.5MG NEB 3 ML VIAL NEB PRN (00:15)
[2022-12-16] MEDS: LORazepam 1 MG TAB PO SCH ×4 (00:58→21:51)
[2022-12-16] MEDS: MoRPHine SULFATE 2 MG/ML CARP IV PRN ×2 (00:59→21:48)
[2022-12-16] MEDS: HEPARIN SOD 5,000 UNIT/0.5 ML VIAL SQ SCH ×4 (01:04→23:42)
[2022-12-16] MEDS: QUEtiapine FUMARATE 25 MG TABLET PO SCH (01:04)
[2022-12-16] MEDS: DOXYCYCLINE HYCLATE 100 MG CAP PO SCH ×3 (01:04→21:49)
[2022-12-16] MEDS: QUEtiapine FUMARATE 200 MG TAB PO SCH ×2 (01:05→23:24)
[2022-12-16] MEDS: LANTUS PER UNIT CHARGE SQ SCH ×3 (01:15→21:50)
[2022-12-16] MEDS: INSULIN ASPART PER UNIT CHARGE SC SCH ×6 (01:15→21:49)
[2022-12-16 05:40] LABS: Basophils # (auto) 0.03 K/uL (0-0.2); Basophils % (auto) 0.3 %; Eosinophils # (auto) 0.03 K/uL (0-0.50); Eosinophils % (auto) 0.3 %; Hematocrit (blood only) 39.4 % (37.0-47.0); Immature Granulocytes # (auto) 0.19 K/uL (0.01-0.20); Immature Granulocytes % (auto) 1.7 %; Lymphocytes # (auto) 2.39 K/uL (1.2-3.4); Lymphocytes % (auto) 21.4 %; Mean Corpuscular Hemoglobin 28.1 pg (25.0-34.0); Mean Corpuscular Volume 85.3 fL (80.0-100.0); Mean Platelet Volume 9.5 fL (9.4-12.4); Monocytes # (auto) 0.95 K/uL (0.11-0.59); Monocytes % (auto) 8.5 %; Neutrophils % (auto) 67.8 %; Platelet Count 355 K/uL (130-400); RDW Standard Deviation 50.1 fL (36.4-46.3); Red Blood Count 4.62 M/uL (4.20-5.40); White Blood Count 11.19 K/ul (4.8-10.8)
[2022-12-16] MEDS: LEVOTHYROXINE SODIUM 175 MCG TABLET PO SCH (05:40)
[2022-12-16 05:52] LABS: BUN Creatinine Ratio 40.3 (10-20); Est GFR (African American) 110.7 ml/min; Est GFR (Non-African American) 95.5 ml/min; Potassium 4.4 mmol/L (3.5-5.1)
[2022-12-16 05:58] LABS: Troponin I High Sensitivity 3.4 pg/ml (0-14)
--- NOTE | 2022-12-16 06:59 | Electrocardiogram Report ---
Test Reason : Blood Pressure : / mmHG Vent. Rate : 078 BPM Atrial Rate : 078 BPM P-R Int : 148 ms QRS Dur : 126 ms QT Int : 410 ms P-R-T Axes : 067 -72 047 degrees QTc Int : 467 ms Normal sinus rhythm Left axis deviation Left anterior fascicular block Right bundle branch block Abnormal ECG When compared with ECG of 06-FEB-2022 20:17, No significant change was found Confirmed by Ronny Squires ([id number]) on 12/16/2022 6:58:47 AM Referred By: REFERRED SELF Confirmed By:Berry Squires
--- NOTE | 2022-12-16 07:10 | Electrocardiogram Report ---
Test Reason : Blood Pressure : / mmHG Vent. Rate : 075 BPM Atrial Rate : 075 BPM P-R Int : 150 ms QRS Dur : 126 ms QT Int : 420 ms P-R-T Axes : 057 -78 040 degrees QTc Int : 469 ms Normal sinus rhythm Left axis deviation Right bundle branch block Poor R wave progression, consider anterior MO vs. lead placement vs. LVH Abnormal ECG When compared with ECG of 15-DEC-2022 17:28, (unconfirmed) Borderline criteria for Lateral infarct are now Present Confirmed by Ronny Squires ([id number]) on 12/16/2022 7:09:39 AM Referred By: REFERRED SELF Confirmed By:Berry Squires
[2022-12-16] MEDS: ALBUT/IPRATROP 3MG/0.5MG NEB 3 ML VIAL NEB SCH ×4 (07:23→19:30)
[2022-12-16] MEDS: DULoxetine HCL 60 MG CAP PO SCH (08:37)
[2022-12-16] MEDS: POTASSIUM CHLORIDE CRTAB 20 MEQ TABCR PO SCH ×2 (08:37→17:10)
[2022-12-16 08:38] LABS: Estimated Average Glucose 197 mg/dl; Hemoglobin A1C 8.5 % (4.5-5.6)
[2022-12-16] MEDS: FLUTICASONE PROPIONATE NA SPR 16 GM BTL SCH (08:38)
[2022-12-16] MEDS: FUROSEMIDE 20 MG TAB PO SCH (08:38)
[2022-12-16] MEDS: hydrOXYzine HCl 25 MG TAB PO SCH ×2 (08:39→21:48)
[2022-12-16] MEDS: GABAPENTIN 800 MG TAB PO SCH ×3 (08:39→21:48)
[2022-12-16] MEDS: predniSONE 20 MG TAB PO SCH (08:41)
[2022-12-16] MEDS ORDERED: PANTOprazole 40 MG TAB PO SCH (09:00)
[2022-12-16] MEDS: NITROGLYCERIN SL 0.4 MG/TAB TAB SL PRN ×3 (09:32→23:12)
[2022-12-16 10:53] LABS: Chol HDL Ratio 3.2 (0-5)
[2022-12-16] MEDS ORDERED: KETOROLAC TROMETHAMINE 15 MG/ML VIAL IV PRN (10:56)
[2022-12-16 10:59] LABS: Troponin I High Sensitivity 3.9 pg/ml (0-14)
[2022-12-16] MEDS: ACETAMINOPHEN 325 MG TAB PO SCH ×3 (11:47→23:41)
--- NOTE | 2022-12-16 12:48 | Electrocardiogram Report ---
Test Reason : Blood Pressure : / mmHG Vent. Rate : 064 BPM Atrial Rate : 064 BPM P-R Int : 160 ms QRS Dur : 130 ms QT Int : 470 ms P-R-T Axes : 050 -63 026 degrees QTc Int : 484 ms Normal sinus rhythm Left anterior fascicular block Right bundle branch block Abnormal ECG When compared with ECG of 16-DEC-2022 05:36, Borderline criteria for Lateral infarct are no longer Present Confirmed by Ronny Squires ([id number]) on 12/16/2022 12:47:51 PM Referred By: REFERRED SELF Confirmed By:Berry Squires
[2022-12-16] MEDS: DICLOFENAC SOD 1% GEL 100 GM TUBE EXT SCH ×3 (13:49→21:49)
--- NOTE | 2022-12-16 14:59 | XRay Report ---
XR KUB/Abdomen 1 view CLINICAL HISTORY: abdominal pain TECHNIQUE: 1 view of the abdomen was obtained. Comparison: Comparison is made to abdomen radiograph 05/22/2015 FINDINGS: Cholecystomy clips are seen in the right upper quadrant. Degenerative changes are seen in the visuali zed skeleton. The bowel gas pattern is nonobstructive. A moderate amount of stool is noted within the large bowel. IMPRESSION: Nonobstructive bowel gas pattern. ACT 112: Negative or not required by law. Electronically signed by: Jatin Villalobos M.D. 12/16/2022 2:57 PM
--- NOTE | 2022-12-16 15:14 | Cardiology Progress Note ---
Date of Service December 16, 2022 Assessment & Plan (1) Chest pain: Plan: - Patient presents with left chest, shoulder, and back pain which was transient. Serial high-sensitivity troponin measurements negative x4. EKG without acute ischemic changes. No recurrence of symptoms. Patient is somewhat of a poor historian, and obtaining details from her is limited by her somnolence. -Although patient has definite cardiac risk factors including age, type 2 diabetes mellitus, untreated dyslipidemia, symptoms as characterized somewhat atypical in character for angina. -Continue ongoing observation, with consideration of pharmacologic stress testing to be determined tomorrow . Agree with treatment to include simvastatin. Patient has not on aspirin, and given the character of her symptoms, together with reassurance provided by her serial troponin levels which were negative and the resting echocardiogram findings, I think it is reasonable to hold off on starting this as she is already on multiple medications in an effort to reduce the risk of polypharmacy. (2) Hypoxic: Plan: - Agree with course of prednisone. Admission and Anticipated Discharge Date Admission Date: December 15, 2022 Soco Gates is a 62-year-old female seen in cardiology consultation per the request of Dr. Mai for the evaluation of chest discomfort. Patient somewhat somnolent during my evaluation. She was sleeping, and woke up briefly to answer questions, and would fall asleep again. She describes presenting with a pain in her left shoulder back and chest that seems to been noted when she was moving her left arm rather than being associated with aerobic exertion. The discomfort has since resolved. Her past medical history is notable for type 2 diabetes mellitus, statin intolerance, tobacco use, schizoaffective disorder, anxiety, hypertension, hepatitis C, and chronic obstructive lung disease. Per review of her outpatient chart, she has been prescribed cholestyramine in the past. She was on simvastatin 20 mg daily from 2008 up until early 2022. I see 1 past prescription for atorvastatin placed on 09/14/2008 but it appears this was replaced shortly thereafter with a prescription for simvastatin on 09/16/2008. Review of Systems Review of Systems: All systems reviewed & are unremarkable except as noted in HPI & below Physical Exam 2 Constitutional: WD/WN, vitals as above Respiratory: normal respiratory effort, lungs clear to auscultation Cardiovascular: RRR, no murmur, no edema Gastrointestinal (Abdomen): normal bowel sounds, soft, nontender, no hepatosplenomegaly Musculoskeletal: No reproduction of left shoulder arm pain on manipulation. Neurologic: PERRL, EOMI, accommodation nl, no face palsy, no dysarthria (No focal deficits, definite somnolence) Results & Data Vital Signs (Past 12 Hours) Vital Signs Temp Pulse Pulse Resp BP Pulse Ox Pulse Ox 12/16/22 13:43 89 L 12/16/22 12:02 36.4 C L 67 20 104/77 97 12/16/22 11:20 80 18 94 12/16/22 09:45 12/16/22 10:01 69 128/80 97 12/16/22 09:30 65 117/79 95 12/16/22 08:13 36.8 C 73 22 114/75 94 12/16/22 07:23 75 16 95 12/16/22 05:58 74 O2 Del Method O2 Flow Rate O2 Flow Rate 12/16/22 13:43 3 12/16/22 12:02 Nasal Cannula 3 12/16/22 11:20 Nasal Cannula 3 12/16/22 09:45 Nasal Cannula 3 12/16/22 10:01 Nasal Cannula 3 12/16/22 09:30 Nasal Cannula 3 12/16/22 08:13 Nasal Cannula 3 12/16/22 07:23 Nasal Cannula 3 12/16/22 05:58 Laboratory Results Cardiac Enzymes 12/15/22 12/15/22 12/16/22 Range/Units 17:29 20:14 05:15 AST 15 (13-39) U/L Troponin I High Sens 4.5 4.4 3.4 (0-14) pg/ml 12/16/22 Range/Units 10:26 AST (13-39) U/L Troponin I High Sens 3.9 (0-14) pg/ml Lipids 12/16/22 Range/Units 10:26 Triglycerides 126 (0-150) mg/dl Cholesterol 170 (0-200) mg/dl HDL Cholesterol 53 mg/dl Cholesterol/HDL Ratio 3.2 (0-5) CBC 12/15/22 12/16/22 Range/Units 17:29 05:15 WBC 10.89 H 11.19 H (4.8-10.8) K/ul RBC 4.90 4.62 (4.20-5.40) M/uL Hgb 13.9 13.0 (12.0-16.0) g/dl Hct 41.9 39.4 (37.0-47.0) % Plt Count 402 H 355 (130-400) K/uL Neut # (Auto) 6.73 H 7.60 H (1.40-6.50) K/uL Lymph # (Auto) 2.70 2.39 (1.2-3.4) K/uL [place] # (Auto) 1.06 H 0.95 H (0.11-0.59) K/uL Eos # (Auto) 0.32 0.03 (0-0.50) K/uL Baso # (Auto) 0.06 0.03 (0-0.2) K/uL Comprehensive Metabolic Panel 12/15/22 12/16/22 Range/Units 17:29 05:15 Sodium 138 140 (136-145) mmol/L Potassium 4.2 4.4 (3.5-5.1) mmol/L Chloride 101 106 (98-107) mmol/L Carbon Dioxide 28 28 (21-32) mmol/L BUN 17 27 H (6-23) mg/dl Creatinine 0.66 0.67 (0.6-1.2) mg/dl Glucose 158 H 135 H (70-99(Fasting)) mg/dl Calcium 9.0 9.0 (8.6-10.3) mg/dl AST 15 (13-39) U/L ALT 9 (7-52) U/L Alkaline Phosphatase 74 (34-104) U/L Total Protein 7.4 (6.0-8.3) gm/dl Albumin 4.1 (3.4-5.0) gm/dl Intake and Output 12/16/22 12/16/22 12/16/22 06:59 14:59 22:59 Other: Other Intake Source NPO NPO Weight 97.7 kg Weight Measurement Method Built in [facility] Diagnostic Findings Chest x-ray radiology report: No acute cardiopulmonary process EKG performed 12/16/2022 and interpreted independently: Sinus rhythm at 75 bpm, right bundle branch block, poor R wave progression lateral precordial leads and therefore an age-indeterminate lateral infarct cannot be excluded. Repeat tracing performed today 12/16/2022 at 9:15 AM, normal sinus rhythm with left anterior fascicular block, right bundle branch block, compared with previous, the age-indeterminate lateral infarct pattern is no longer present. -Compared to previous tracings, the poor R wave progression in the lateral precordial leads is a chronic finding. Echocardiogram performed 12/16/2022 and interpreted independently: Normal LV wall motion, LVEF in the range of 55 to 60%, no significant valvular heart disease.
--- NOTE | 2022-12-16 15:23 | Hospitalist Progress Note ---
Date of Service December 16, 2022 Assessment & Plan (1) Chest pain: Plan 62-year-old female with PMH of T2DM, chronic nonspecific obstructive lung disease, ongoing tobacco abuse, HTN, morbid obesity, CKD stage III, glaucoma, schizoaffective disorder, statin intolerance, anxiety state, ductal carcinoma in situ, hepatitis C antibody test positive, medical marijuana, PTSD, major depression presented with chest pain initially dull in nature followed by sharp chest pain across the left lateral chest radiating to the base of her neck and the back. 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 On exam, patient has tenderness on left lateral chest. No signs of trauma or infection or erythema. Patient reports improvement with pain medication as well as from nitroglycerin. Patient is a smoker, LDL 92. Troponin x4 negative, EKG without acute ST or T changes, echo with no regional wall motion abnormality. Continue with home medication, simvastatin. Voltaren gel and Tylenol [id number], nitroglycerin as needed, EKG as needed with chest pain, telemetry monitoring Cardiology on board, appreciate recommendation. Hypoxia Mild COPD exacerbation Patient is a current smoker, smokes half packs a day, has been diagnosed with COPD in the past, per her, she is supposed to use 2 L oxygen at home but does not use. Patient currently on 3 L oxygen, continue with nebulization, continue with doxycycline and prednisone. Other chronic medical conditions: Tobacco abuse. Patient counseled regarding tobacco cessation, patient understands the risk associated with it. History of diabetes. Hold home medication, sliding scale insulin. History of hypertension. Seems to be not on any blood pressure medications. We will monitor the blood pressure. History of hypothyroidism. On Synthroid. Continue Chronic kidney disease, stage III. Presently with a creatinine of 0.6. We will follow the labs. Hyperlipidemia. On statin. History of schizoaffective disorder, anxiety disorder, post-traumatic stress disorder, major depression. Continue Wellbutrin, Ativan, Seroquel, duloxetine. History of hepatitis C antibody positive. Needs followup w/ GI as OP. Deep venous thrombosis prophylaxis. Heparin subcutaneously. Admission and Anticipated Discharge Date Admission Date: December 15, 2022 Subjective Patient seen and examined at bedside as a follow-up chest pain rule out ACS and hypoxia/possible mild exacerbation of COPD. Patient was lying in bed, sleeping, on 3 L oxygen via nasal cannula, reports cough for 3 to 4 weeks with whitish sputum and also reports pain at left lateral chest for 2 weeks duration which was initially dull in nature and had been sharp in nature since 1 day ago [employer]MITE [employer] REPRESENTATIVE. Patient also reports taking 3 tablets of ibuprofen up to 3 times a day for last 2 weeks which she stopped about 1 to 2 days ago [employer] REPRESENTATIVE. Patient was n.p.o. until cardiology evaluation in the morning, patient reports feeling hunger okay and would like to eat when able, patient reports her left lateral chest pain slightly better with pain medications and also reports that it is somewhat improved after nitroglycerin. Physical Exam Physical Exam: GENERAL: sleeping, Ox3. NAD, on 3L O2 via NC. HEENT: No pallor, no icterus. Pupils equal, round and reactive to light. Oral mucosa moist. NECK: No JVD, no neck masses. HEART: S1 and S2 heard. Regular rate and rhythm. No murmur, no gallop. RESPIRATORY SYSTEM: Normal AP diameter. No accessory muscle use. + rhonci. Decreased breath sounds b/l. Lt lateral chest tenderness. No trauma/injury/erythema/swelling noted over left lower chest. ABDOMEN: Soft, bowel sounds present, nontender, no distention. CENTRAL NERVOUS SYSTEM: No facial droop. Speech is clear. Obeys simple commands. Moves extremities. EXTREMITIES: No edema, no erythema seen. Results & Data Results & Data Vital Signs (Past 12 Hours) Vital Signs Temp Pulse Pulse Resp BP Pulse Ox Pulse Ox 12/16/22 15:05 85 18 94 12/16/22 13:43 89 L 12/16/22 12:02 36.4 C L 67 20 104/77 97 12/16/22 11:20 80 18 94 12/16/22 09:45 12/16/22 10:01 69 128/80 97 12/16/22 09:30 65 117/79 95 12/16/22 08:13 36.8 C 73 22 114/75 94 12/16/22 07:23 75 16 95 12/16/22 05:58 74 O2 Del Method O2 Flow Rate O2 Flow Rate 12/16/22 15:05 Nasal Cannula 3 12/16/22 13:43 3 12/16/22 12:02 Nasal Cannula 3 12/16/22 11:20 Nasal Cannula 3 12/16/22 09:45 Nasal Cannula 3 12/16/22 10:01 Nasal Cannula 3 12/16/22 09:30 Nasal Cannula 3 12/16/22 08:13 Nasal Cannula 3 12/16/22 07:23 Nasal Cannula 3 12/16/22 05:58
[2022-12-16] MEDS ORDERED: INSULIN ASPART PER UNIT CHARGE SC SCH (16:30)
[2022-12-16] MEDS: SIMVASTATIN 20 MG TAB PO SCH (21:47)
[2022-12-16] MEDS: PANTOprazole 40 MG TAB PO SCH (21:48)
[2022-12-16] MEDS: diphenhydrAMINE Capsule 25 MG CAP PO SCH (21:49)
[2022-12-16] MEDS: QUEtiapine FUMARATE 100 MG TABLET PO SCH (23:41)
[2022-12-17] MEDS: ACETAMINOPHEN 325 MG TAB PO SCH ×3 (06:02→17:09)
[2022-12-17] MEDS: LEVOTHYROXINE SODIUM 175 MCG TABLET PO SCH (06:02)
[2022-12-17] MEDS: ALBUT/IPRATROP 3MG/0.5MG NEB 3 ML VIAL NEB SCH ×4 (07:06→19:52)
[2022-12-17 07:36] LABS: Hematocrit (blood only) 35.9 % (37.0-47.0); Hemoglobin 11.7 g/dl (12.0-16.0); Mean Corpuscular Hemoglobin 28.3 pg (25.0-34.0); Mean Corpuscular Hgb Conc 32.6 g/dL (32.0-36.0); Mean Corpuscular Volume 86.9 fL (80.0-100.0); Mean Platelet Volume 9.5 fL (9.4-12.4); Platelet Count 329 K/uL (130-400); RDW Coefficient of Variation 15.9 % (11.5-14.5); RDW Standard Deviation 50.1 fL (36.4-46.3); Red Blood Count 4.13 M/uL (4.20-5.40); White Blood Count 12.42 K/ul (4.8-10.8)
[2022-12-17 08:14] LABS: Calcium 9.2 mg/dl (8.6-10.3); Magnesium 1.9 mg/dl (1.7-2.4); Potassium 3.8 mmol/L (3.5-5.1)
[2022-12-17 08:20] LABS: BUN Creatinine Ratio 33.8 (10-20); Creatinine Clr Calc Pharmacy 98.2 ml/min; Est GFR (African American) 110.2 ml/min; Est GFR (Non-African American) 95.1 ml/min; Phosphorus 4.3 mg/dl (2.5-4.9)
[2022-12-17] MEDS: HEPARIN SOD 5,000 UNIT/0.5 ML VIAL SQ SCH ×2 (08:35→16:37)
[2022-12-17] MEDS: DOXYCYCLINE HYCLATE 100 MG CAP PO SCH ×2 (08:37→21:58)
[2022-12-17] MEDS: DICLOFENAC SOD 1% GEL 100 GM TUBE EXT SCH ×5 (08:37→22:00)
[2022-12-17] MEDS: FLUTICASONE PROPIONATE NA SPR 16 GM BTL SCH (08:38)
[2022-12-17] MEDS: DULoxetine HCL 60 MG CAP PO SCH (08:38)
[2022-12-17] MEDS: FUROSEMIDE 20 MG TAB PO SCH (08:38)
[2022-12-17] MEDS: PANTOprazole 40 MG TAB PO SCH ×2 (08:39→21:58)
[2022-12-17] MEDS: GABAPENTIN 800 MG TAB PO SCH ×3 (08:39→21:57)
[2022-12-17] MEDS: predniSONE 20 MG TAB PO SCH (08:40)
[2022-12-17] MEDS: QUEtiapine FUMARATE 25 MG TABLET PO SCH (08:40)
[2022-12-17] MEDS: LORazepam 1 MG TAB PO SCH ×3 (08:57→21:56)
[2022-12-17] MEDS: POTASSIUM CHLORIDE CRTAB 20 MEQ TABCR PO SCH ×2 (08:57→17:09)
[2022-12-17] MEDS: INSULIN ASPART PER UNIT CHARGE SC SCH ×4 (08:58→22:00)
[2022-12-17] MEDS: LANTUS PER UNIT CHARGE SQ SCH ×2 (08:58→22:00)
[2022-12-17] MEDS: hydrOXYzine HCl 25 MG TAB PO SCH ×2 (10:06→21:59)
--- NOTE | 2022-12-17 11:47 | Electrocardiogram Report ---
Test Reason : Blood Pressure : / mmHG Vent. Rate : 076 BPM Atrial Rate : 076 BPM P-R Int : 154 ms QRS Dur : 126 ms QT Int : 408 ms P-R-T Axes : 055 -66 030 degrees QTc Int : 459 ms Normal sinus rhythm Left axis deviation Right bundle branch block Abnormal ECG When compared with ECG of 16-DEC-2022 09:15, No significant change was found Confirmed by Beni Diaz ([id number]) on 12/17/2022 11:46:57 AM Referred By: REFERRED SELF Confirmed By:Beni Diaz
--- NOTE | 2022-12-17 11:54 | Electrocardiogram Report ---
Test Reason : Blood Pressure : / mmHG Vent. Rate : 064 BPM Atrial Rate : 064 BPM P-R Int : 160 ms QRS Dur : 130 ms QT Int : 438 ms P-R-T Axes : 054 -64 027 degrees QTc Int : 451 ms Normal sinus rhythm Left axis deviation Right bundle branch block Abnormal ECG When compared with ECG of 16-DEC-2022 22:08, (unconfirmed) No significant change was found Confirmed by Beni Diaz ([id number]) on 12/17/2022 11:54:34 AM Referred By: REFERRED SELF Confirmed By:Beni Diaz
[2022-12-17] MEDS ORDERED: oxyCODONE HCL IR 5 MG TAB (IMMEDIATE RELEASE) PO STA (13:51)
--- NOTE | 2022-12-17 13:56 | Cardiology Progress Note ---
Date of Service December 17, 2022 Assessment & Plan (1) Chest pain: Plan: Patient is less somnolent today. She describes that she feels like this has improved since reduction in her dose of Seroquel. Some degree of pressured speech noted consistent with her history. Patient with nonanginal axilla and chest wall pain. Serial high-sensitivity troponins have been negative x5 measurements. EKG negative with chronic poor R wave progression in the lateral leads, likely due to patient's body habitus. No further cardiac testing felt to be indicated at this time. Admission and Anticipated Discharge Date Admission Date: December 15, 2022 Subjective Patient seen in cardiology follow-up. Telemetry reveals sinus rhythm in the 80s. Patient with ongoing pain in her left axilla and under her left breast border. No associated rashes on physical exam. Pain is aching and the left axilla pain is reproduced with moving her left arm. Pain at the border of her left breast is reproduced with palpation. Physical Exam Constitutional: WD/WN, vitals as above Respiratory: normal respiratory effort, lungs clear to auscultation Cardiovascular: RRR, no murmur, no edema Chest (Breasts): Additional Comments: No rashes on the left chest under the border of the left breast. Reproducible discomfort on palpation Gastrointestinal (Abdomen): normal bowel sounds, soft, nontender, no hepatosplenomegaly Neurologic: PERRL, EOMI, accommodation nl, no face palsy, no dysarthria Results & Data Vital Signs (Past 12 Hours) Vital Signs Temp Pulse Pulse Resp BP Pulse Ox O2 Del Method 12/17/22 11:24 36.7 C 81 20 125/72 98 Nebulizer 12/17/22 11:07 83 16 93 Room Air 12/17/22 07:38 36.4 C L 65 20 115/73 94 Nasal Cannula 12/17/22 07:35 Nasal Cannula 12/17/22 05:58 63 12/17/22 07:06 66 16 95 Nasal Cannula 12/17/22 03:03 36.9 C 86 16 136/81 96 Nasal Cannula O2 Flow Rate 12/17/22 11:24 12/17/22 11:07 12/17/22 07:38 2 12/17/22 07:35 2 12/17/22 05:58 12/17/22 07:06 2 12/17/22 03:03 Laboratory Results Cardiac Enzymes 12/16/22 Range/Units 15:37 Troponin I High Sens 5.4 (0-14) pg/ml CBC 12/17/22 Range/Units 06:57 WBC 12.42 H (4.8-10.8) K/ul RBC 4.13 L (4.20-5.40) M/uL Hgb 11.7 L (12.0-16.0) g/dl Hct 35.9 L (37.0-47.0) % Plt Count 329 (130-400) K/uL Comprehensive Metabolic Panel 12/17/22 Range/Units 06:57 Sodium 139 (136-145) mmol/L Potassium 3.8 (3.5-5.1) mmol/L Chloride 105 (98-107) mmol/L Carbon Dioxide 30 (21-32) mmol/L BUN 23 (6-23) mg/dl Creatinine 0.68 (0.6-1.2) mg/dl Glucose 77 (70-99(Fasting)) mg/dl Calcium 9.2 (8.6-10.3) mg/dl Intake and Output 12/16/22 12/17/22 12/17/22 22:59 06:59 14:59 Intake Total 360 / 600 240 / 600 Balance 360 / 600 240 / 600 Intake: Oral 360 / 600 240 / 600 Other: Weight 97.7 kg 94.801 kg Weight Measurement Method Built in [facility] Diagnostic Findings EKG performed today 12/17/2022 and interpreted independently: Normal sinus rhythm at 64 bpm, right bundle branch block. Compared to the previous, no significant change.
[2022-12-17] MEDS ORDERED: NAPROXEN 250 MG TAB PO PRN (17:08)
--- NOTE | 2022-12-17 17:15 | Hospitalist Progress Note ---
Date of Service December 17, 2022 Assessment & Plan (1) Chest pain: Plan 62-year-old female with PMH of T2DM, chronic nonspecific obstructive lung disease, ongoing tobacco abuse, HTN, morbid obesity, CKD stage III, glaucoma, schizoaffective disorder, statin intolerance, anxiety state, ductal carcinoma in situ, hepatitis C antibody test positive, medical marijuana, PTSD, major depression presented with chest pain initially dull in nature followed by sharp chest pain across the left lateral chest radiating to the base of her neck and the back. 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 On exam, patient has tenderness on left lateral chest. No signs of trauma or infection or erythema. Patient reports improvement with pain medication as well as from nitroglycerin. Pt declining voltaren gel and tylenol; declines any nsaids citing renal injury probability, renal fxn appears good. Will try short course of naproxen. variable reproducibility of pain at left lateral chest. Seen easily using left UE to position herself in bed. Patient is a smoker, LDL 92. Troponin x4 negative, EKG without acute ST or T changes, echo with no regional wall motion abnormality. cardio evaled, appreciat recs. Continue with home medication, simvastatin. Voltaren gel and Tylenol [id number],naproxen prn. Will try to avoid narcotics. Hypoxia Mild COPD exacerbation Patient is a current smoker, smokes half packs a day, has been diagnosed with COPD in the past, per her, she is supposed to use 2 L oxygen at home but does not use. Patient currently on 3 L oxygen, continue with nebulization, continue with doxycycline and prednisone. 2 step test: 2L O2 w/ acitivity. CM to assist w/ home O2 set up. Other chronic medical conditions: Tobacco abuse. Patient counseled regarding tobacco cessation, patient understands the risk associated with it. History of diabetes. Hold home medication, sliding scale insulin. History of hypertension. Seems to be not on any blood pressure medications. We will monitor the blood pressure. History of hypothyroidism. On Synthroid. Continue Chronic kidney disease, stage III. Presently with a creatinine of 0.6. We will follow the labs. Hyperlipidemia. On statin. History of schizoaffective disorder, anxiety disorder, post-traumatic stress disorder, major depression. Continue Wellbutrin, Ativan, Seroquel, duloxetine. History of hepatitis C antibody positive. Needs followup w/ GI as OP. Deep venous thrombosis prophylaxis. Heparin subcutaneously. Admission and Anticipated Discharge Date Admission Date: December 15, 2022 Subjective Patient seen and examined at bedside as a follow-up chest pain rule out ACS and hypoxia/possible mild exacerbation of COPD. Patient was lying in bed, on 3 L nasal cannula oxygen, appears comfortable and does not appear to be in pain, when I entered the room patient sat herself up in bed with use of her both abs and did not appear that she was in pain at all. When I was examining and examined the left lateral chest, there is no pain initially but when I asked her and examined and then appears that the pain came back. Patient is declining Tylenol and Voltaren gel citing that it does not help. I have added naproxen for now. This medication is to be taken first to determine the need for any further pain medication. Physical Exam Physical Exam: GENERAL: sleeping, Ox3. NAD, on 3L O2 via NC. HEENT: No pallor, no icterus. Pupils equal, round and reactive to light. Oral mucosa moist. NECK: No JVD, no neck masses. HEART: S1 and S2 heard. Regular rate and rhythm. No murmur, no gallop. RESPIRATORY SYSTEM: Normal AP diameter. No accessory muscle use. + rhonci. Decreased breath sounds b/l. Lt lateral chest tenderness. No trauma/injury/erythema/swelling noted over left lower chest. No abnormal exam, tenderness variable depending her awareness of my exam. Using left arm easily to position herself up in the bed with no apparent pain perceived to me. ABDOMEN: Soft, bowel sounds present, nontender, no distention. CENTRAL NERVOUS SYSTEM: No facial droop. Speech is clear. Obeys simple commands. Moves extremities. EXTREMITIES: No edema, no erythema seen. Results & Data Results & Data Vital Signs (Past 12 Hours) Vital Signs Temp Pulse Pulse Pulse Pulse Pulse Pulse 12/17/22 16:00 36.5 C 81 12/17/22 14:08 77 12/17/22 14:26 80 77 82 87 12/17/22 15:34 78 12/17/22 11:24 36.7 C 81 12/17/22 11:07 83 12/17/22 07:38 36.4 C L 65 12/17/22 07:35 12/17/22 05:58 63 12/17/22 07:06 66 Resp Resp Resp Resp Resp BP Pulse Ox 12/17/22 16:00 20 109/78 100 12/17/22 14:08 12/17/22 14:26 20 22 20 20 12/17/22 15:34 20 94 12/17/22 11:24 20 125/72 98 12/17/22 11:07 16 93 12/17/22 07:38 20 115/73 94 12/17/22 07:35 12/17/22 05:58 12/17/22 07:06 16 95 Pulse Ox Pulse Ox Pulse Ox Pulse Ox O2 Del Method O2 Flow Rate O2 Flow Rate 12/17/22 16:00 Nebulizer 12/17/22 14:08 12/17/22 14:26 93 84 L 91 92 2 12/17/22 15:34 Nasal Cannula 2 12/17/22 11:24 Nebulizer 12/17/22 11:07 Room Air 12/17/22 07:38 Nasal Cannula 2 12/17/22 07:35 Nasal Cannula 2 12/17/22 05:58 12/17/22 07:06 Nasal Cannula 2
[2022-12-17] MEDS: diphenhydrAMINE Capsule 25 MG CAP PO SCH (21:57)
[2022-12-17] MEDS: SIMVASTATIN 20 MG TAB PO SCH (21:57)
[2022-12-17] MEDS: QUEtiapine FUMARATE 100 MG TABLET PO SCH (21:58)
[2022-12-18] MEDS: ACETAMINOPHEN 325 MG TAB PO SCH ×3 (00:41→12:29)
[2022-12-18] MEDS: HEPARIN SOD 5,000 UNIT/0.5 ML VIAL SQ SCH ×2 (00:41→08:58)
[2022-12-18] MEDS: LEVOTHYROXINE SODIUM 175 MCG TABLET PO SCH (05:37)
[2022-12-18] MEDS: ALBUT/IPRATROP 3MG/0.5MG NEB 3 ML VIAL NEB SCH ×2 (07:22→11:23)
[2022-12-18] MEDS: FUROSEMIDE 20 MG TAB PO SCH (08:58)
[2022-12-18] MEDS: hydrOXYzine HCl 25 MG TAB PO SCH (08:58)
[2022-12-18] MEDS: POTASSIUM CHLORIDE CRTAB 20 MEQ TABCR PO SCH (08:58)
[2022-12-18] MEDS: DULoxetine HCL 60 MG CAP PO SCH (08:58)
[2022-12-18] MEDS: PANTOprazole 40 MG TAB PO SCH (08:58)
[2022-12-18] MEDS: DICLOFENAC SOD 1% GEL 100 GM TUBE EXT SCH ×2 (08:58→12:31)
[2022-12-18] MEDS: GABAPENTIN 800 MG TAB PO SCH (08:58)
[2022-12-18] MEDS: QUEtiapine FUMARATE 25 MG TABLET PO SCH (08:58)
[2022-12-18] MEDS: DOXYCYCLINE HYCLATE 100 MG CAP PO SCH (08:58)
[2022-12-18] MEDS: predniSONE 20 MG TAB PO SCH (08:59)
[2022-12-18] MEDS: FLUTICASONE PROPIONATE NA SPR 16 GM BTL SCH (08:59)
[2022-12-18] MEDS: LANTUS PER UNIT CHARGE SQ SCH (09:05)
[2022-12-18] MEDS: INSULIN ASPART PER UNIT CHARGE SC SCH ×2 (09:06→12:34)
[2022-12-18] MEDS: LORazepam 1 MG TAB PO SCH ×2 (09:06→12:34)
--- NOTE | 2022-12-18 12:31 | Discharge Summary ---
Date of Service December 18, 2022 Admission HPI Per Admitting Provider DATE OF ADMISSION: 12/15/2022. CHIEF COMPLAINT: Chest pain. HISTORY OF PRESENT ILLNESS: This 62-year-old female with past medical history significant for type 2 diabetes, chronic nonspecific obstructive lung disease, ongoing tobacco abuse, hypertension, morbid obesity, chronic kidney disease, stage III, history of glaucoma, history of schizoaffective disorder, statin intolerance, anxiety state, history of ductal carcinoma in situ, history of hepatitis C antibody test positive, medical marijuana PTSD, major depression, presents with chest pain. The patient says since last night she is having pain in the left axillary region and left-sided chest, severe in nature and with any movement, the pain is also worse. Pain is constant pain . lso having had back pain going on for the last 2 weeks, got worse last night. She has chronic smoker's cough and once in while, she brings whitish phlegm. Denies any shortness of breath, no nausea. She has some headache now. No fevers, no blurred visions. She has left ear pain going on since last couple of months, has some left lower quadrant mild abdominal discomfort. Normal bowel and bladder movements. No swelling at the legs. She says she has a history of both ankle surgeries and could not ambulate for long distance, but she can ambulate okay in the house, lives with her son. ALLERGIES: TO VARENICLINE PAST MEDICAL HISTORY: As mentioned above. PAST SURGICAL HISTORY: Left breast lesion excision for DCIS, colonoscopy, EGD, EGD with biopsy, EGD with endoscopic ultrasound, dental surgery, foot surgery, laparoscopic cholecystectomy, ligation of oviducts, liver biopsy, partial hysterectomy. MEDICATIONS: As per the [facility], the patient is on Flonase 2 sprays into each nostril daily, simvastatin 20 mg p.o. at bedtime, levothyroxine 175 mcg p.o. daily, potassium chloride 20 mEq p.o. at bedtime, Zofran 4 mg p.o. q. 8 hours p.r.n, metformin 1000 mg p.o. b.i.d., albuterol 2 puffs q. 4-6 hours p.r.n., Wellbutrin SR 150 mg p.o. daily, Lasix 20 mg p.o. daily, Lantus 15 units under the skin daily, lorazepam 1 mg p.o. b.i.d., Seroquel 100 mg p.o. at bedtime, cyclobenzaprine 10 mg p.o. b.i.d. p.r.n., gabapentin 800 mg p.o. t.i.d., duloxetine 60 mg p.o. daily, Jardiance 10 mg p.o. daily, omeprazole 40 mg p.o. daily, trazodone 150 mg p.o. at bedtime, DuoNeb p.r.n. FAMILY HISTORY: Significant for son has arthritis, asthma; father has diabetes; mother has lung disorder. SOCIAL HISTORY: Lives with her son. Smokes quarter pack a day for last 40 years. No alcohol use. No drug use. REVIEW OF SYSTEMS: As per HPI. Rest of the review of systems is negative. Admission Exam Per Admitting Provider GENERAL: The patient is obese, not in acute distress. VITAL SIGNS: Temperature 37, pulse 72, respiratory rate 24, blood pressure 120/93, oxygen was 89% on room air, 96% on 3 L. HEENT: Pupils equal, round and reactive to light. Oral mucosa dry. NECK: No JVD. No neck masses. CARDIOVASCULAR: S1 and S2 heard. Regular rate and rhythm. No murmur, no gallop. RESPIRATORY SYSTEM: Normal AP diameter. No accessory muscle use. Mild bilateral rhonchi. No wheezing.Cleft side chest tenderness present ABDOMEN: Soft, bowel sounds present, nontender, no distention. CENTRAL NERVOUS SYSTEM: Alert and oriented. Speech is clear. No facial droop. Obeys simple commands. Moves extremities. EXTREMITIES: No edema. No erythema seen. Principal Diagnosis Chest pain, rule out ACS Mild COPD exacerbation Discharge Exam GENERAL: sleeping, Ox3. NAD, on RA HEENT: No pallor, no icterus. Pupils equal, round and reactive to light. Oral mucosa moist. NECK: No JVD, no neck masses. HEART: S1 and S2 heard. Regular rate and rhythm. No murmur, no gallop. RESPIRATORY SYSTEM: Normal AP diameter. No accessory muscle use. + rhonci. Decreased breath sounds b/l. Lt lateral chest tenderness -- none during gentle pressing w/ stetch during auscultation. No trauma/injury/erythema/swelling noted over left lower chest. No abnormal exam, tenderness variable depending her awareness of my exam. Using left arm easily to position herself up in the bed with no apparent pain perceived to me. Easily sitting up in the bed from lying down position. ABDOMEN: Soft, bowel sounds present, nontender, no distention. CENTRAL NERVOUS SYSTEM: No facial droop. Speech is clear. Obeys simple commands. Moves extremities. EXTREMITIES: No edema, no erythema seen. Discharge Data Allergies Allergy/AdvReac Type Severity Reaction Status Date / Time varenicline AdvReac Intermediate Nightmares Verified 12/15/22 22:06 Consultations 12/15/22 19:21 ED Decision to Admit Stat 12/16/22 08:00 Consult Cardiology Routine Hospital Course (1) Chest pain: Plan 62-year-old female with PMH of T2DM, chronic nonspecific obstructive lung disease, ongoing tobacco abuse, HTN, morbid obesity, CKD stage III, glaucoma, schizoaffective disorder, statin intolerance, anxiety state, ductal carcinoma in situ, hepatitis C antibody test positive, medical marijuana, PTSD, major depression presented with chest pain initially dull in nature followed by sharp chest pain across the left lateral chest radiating to the base of her neck and the back. 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 On exam, patient has tenderness on left lateral chest. No signs of trauma or infection or erythema. Patient reports improvement with pain medication as well as from nitroglycerin. Pt declining voltaren gel and tylenol; declines any nsaids citing renal injury probability, renal fxn appears good. Will try short course of naproxen to be taken w/ meals. variable reproducibility of pain at left lateral chest. Seen easily using left UE to position herself in bed. Patient is a smoker, counselled for smoking cessation. Troponin x4 negative, EKG without acute ST or T changes, echo with no regional wall motion abnormality. cardio evaled, appreciate recs. Continue with home medication, simvastatin. Voltaren gel and Tylenol [id number],naproxen prn. Naproxen prn for 7 days on discharge. Will try to avoid narcotics. Hypoxia Mild COPD exacerbation Patient is a current smoker, smokes half packs a day, has been diagnosed with COPD in the past, per her, she is supposed to use 2 L oxygen at home but does not use. Patient currently on 3 L oxygen, continue with nebulization, continue with doxycycline and prednisone. to complete the course on discharge. 2 step test: 2L O2 w/ acitivity. CM to assist w/ home O2 set up. Other chronic medical conditions: Tobacco abuse. Patient counseled regarding tobacco cessation, patient understands the risk associated with it. History of diabetes. Hold home medication, sliding scale insulin. History of hypertension. Seems to be not on any blood pressure medications. We will monitor the blood pressure. History of hypothyroidism. On Synthroid. Continue Chronic kidney disease, stage III. Presently with a creatinine of 0.6. We will follow the labs. Hyperlipidemia. On statin. History of schizoaffective disorder, anxiety disorder, post-traumatic stress disorder, major depression. Continue Wellbutrin, Ativan, Seroquel, duloxetine. History of hepatitis C antibody positive. Needs followup w/ GI as OP. Deep venous thrombosis prophylaxis. Heparin subcutaneously. Patient being discharged home with following instruction at the point of discharge: Follow-up with your primary care physician within a week time and likely you will need labs CBC/CMP/magnesium/phosphorus. For your mild exacerbation of COPD, you will be discharged on antibiotic and prednisone. Complete the course. You will be discharged only a few days worth of Ativan, for refilling your Ativan prescription you will need to reach out to your psychiatry doctor upon discharge. For your musculoskeletal pain, you can use [id number] Voltaren gel and Tylenol. You will be prescribed 5 to 7 days worth of naproxen. Take it with meals as prescribed. For your history of hepatitis C antibody positive, follow-up with GI doctor as outpatient. Use your oxygen as prescribed prior. Please make sure that you are able to get your medications today by calling your pharmacy before you leave the hospital so that your treatment continuity is not broken. Home Health Attestation I certify that this patient is under my care and that I, or a physicians hearing aid assistant working with me, had a face to-face encounter that meets the home health [id number] encounter requirements with this patient. The encounter with the patient was in whole, or in part, for the following medical condition, which is the primary reason for home health care (list medic al condition): I certify that, based on my findings, the following services are medically necessary home health services: My clinical findings support the need for the above services because: Further, I certify that my clinical findings support that this patient is homebound (i.e. absences from home require considerable and taxing effort and are for medical reasons or jainism services or infrequently or of short duration when for other reasons) because: Certification for Home Health Services: Based on the above findings, I certify that this patient is confined to the home and needs intermittent correction care, physical therapy and/or speech therapy or continues to need occupational therapy. The patient is under my care, and I have initiated the establishment of the plan of care. This patient will be followed by a physician who will periodically review the plan of care. Total Time Total Time Spent Total Time Spent (In Minutes): 45 Discharge Plan Discharge Items Patient Disposition: Home - Self-Care Reason For Visit: CHEST PAIN Discharge Diagnosis: Chest pain, rule out ACS Mild COPD exacerbation Activity: Resume your previous activity Non-emergency contact: Primary Care Provider Call non-emergency contact if: you have any medication questions Follow-up/Referrals: Ania Rice MD [Primary Care Provider] - (Date & Time 12/20/2022 11:20 AM Provider Ania Rice MD Department General Internal Medicine [facility] ) Diet: Carb Consistent or DM2 and Heart Healthy Addtl Attending Provider Instructions: Follow-up with your primary care physician within a week time and likely you will need labs CBC/CMP/magnesium/phosphorus. For your mild exacerbation of COPD, you will be discharged on antibiotic and prednisone. Complete the course. You will be discharged only a few days worth of Ativan, for refilling your Ativan prescription you will need to reach out to your psychiatry doctor upon discharge. For your musculoskeletal pain, you can use [id number] Voltaren gel and Tylenol. You will be prescribed 5 to 7 days worth of naproxen. Take it with meals as prescribed. For your history of hepatitis C antibody positive, follow-up with GI doctor as outpatient. Use your oxygen as prescribed prior. Please make sure that you are able to get your medications today by calling your pharmacy before you leave the hospital so that your treatment continuity is not broken. Pending Studies at Discharge: No Stand-Alone Forms: [employer], Smoking Cessation Medications and DC Order Prescriptions: New doxycycline hyclate 100 mg Capsule 100 mg PO BID 3 Days Qty: 6 0RF naproxen 250 mg Tablet 250 mg PO BID PRN (Reason: severe pain (scale score 7-10)) 7 Days Qty: 14 0RF prednisone 20 mg Tablet 20 mg PO DAILY 4 Days Qty: 4 0RF Continued duloxetine 60 mg Capsule,Delayed Release(Dr/Ec) 60 mg PO QAM simvastatin 20 mg Tablet 20 mg PO [id number] Rx Instructions: IS ORDERED EVERY DAY. insulin glargine [Lantus U-100 Insulin] 100 unit/mL Solution 50 unit SUBCUT QPM Rx Instructions: PER PT "50 UNITS DAILY". potassium chloride 20 mEq tablet extended release 20 meq PO BID Qty: 4 0RF cyclobenzaprine 10 mg tablet 10 mg PO BID PRN (Reason: Muscle Pain) furosemide 20 mg tablet 20 mg PO DAILY omeprazole 40 mg Capsule,Delayed Release(Dr/Ec) 40 mg PO QAM levothyroxine 175 mcg tablet 175 mcg PO DAILY quetiapine 200 mg tablet 200 mg PO HS hydroxyzine HCl 50 mg tablet 50 mg PO BID gabapentin 800 mg tablet 800 mg PO TID metformin 500 mg Tablet Extended Release 24 Hr 1,000 mg PO BID ondansetron HCl 4 mg tablet 4 mg PO Q8 PRN (Reason: Nausea) clindamycin phosphate 1 % Gel 1 applic TOPICAL BID PRN (Reason: .FLARE UP) trazodone 150 mg tablet 300 mg PO HS diphenhydramine HCl [Benadryl Allergy] 25 mg Tablet 50 mg PO HS nystatin 100,000 unit/gram Powder 1 applic TOPICAL BID PRN (Reason: .IRRITATION) albuterol sulfate 90 mcg/actuation Hfa Aerosol Inhaler 2 puff INHALATION Q6H PRN (Reason: Shortness Of Breath Or Wheezing) fluticasone propionate 50 mcg/actuation spray,suspension 2 spray INTRANASAL QAM chlorhexidine gluconate [Hibiclens] 4 % liquid 1 applic TOPICAL DAILY prazosin 2 mg capsule 2 - 4 mg PO HS PRN (Reason: .NIGHTMERES) quetiapine 50 mg tablet 50 mg PO QAM diclofenac sodium [Voltaren] 1 % Gel 4 g TOPICAL BID PRN (Reason: Pain) Jardiance 10 mg tablet 10 mg PO QAM lorazepam 1 mg Tablet 1 mg PO TID 5 Days Qty: 15 0RF Rx Instructions: AM, NOON ,HS PER PT. Discharge Orders: Discharge Order (Routine); Ordered 12/18/22 Ordered By: Rocio Murphy/Other Patient Handouts: Managing Type 2 Diabetes, Special Foot Care for Diabetes Admission Data Admit Date/Time: 12/17/22 18:26 Attending Provider: Rocio Espinoza Admit Provider: Pablito Mai Primary Care Provider: Ania Rice Other Providers: Pablito Mai ; Melchor Saldana
== END 2022-12-18 14:56 | disposition home or self-care (01) | DRG 313 ==
LOC: ED 17:19 → EDINP 17:19 → 2W 23:44

== ENCOUNTER 2023-11-05 17:22 | Inpatient (IN) ==
--- NOTE | 2023-11-05 17:29 | ED Triage Note ---
Date of Service November 05, 2023 Provider in Triage Author: Mickie Carney History of Present Illness This patient was briefly evaluated while in triage. An abbreviated physical exam was performed. This patient is a 63-year-old Female who presents to the ED for evaluation of shortness of breath for the past week. Her grandson also recently picked her up and cracked her back and now her ribs and upper abdomen all the way around hurt really badly. She is having the pain and SOB since that time. Her roommate was also recently diagnosed with pneumonia. Physical Exam GENERAL: Non-toxic and in no acute distress. HEENT: Pupils equal. No obvious scleral icterus. HEART: Regular rate and rhythm. LUNGS: Clear to auscultation. A few scattered wheezes. No accessory muscle use or retractions. The patient is tender to palpation over the bilateral lower anterior ribs. ABDOMEN: Soft, diffusely tender to palpation in the upper abdomen. NEURO: Alert and oriented. No obvious neurological deficits on quick neuro exam. Initial orders for labs and / or imaging were placed and patient was placed in the waiting area until a bed is available. Please see further documentation for the full ED course. MDM / Impression Impression Impression: COPD exacerbation, Abdominal pain, Infection due to parainfluenza virus 3, Rib pain, UTI (urinary tract infection) Impression: Abdominal pain Qualifiers: Abdominal location: generalized Qualified Code(s): R10.84 - Generalized abdominal pain UTI (urinary tract infection) Qualifiers: Urinary tract infection type: acute cystitis Hematuria presence: without hematuria Qualified Code(s): N30.00 - Acute cystitis without hematuria
[2023-11-05 18:25] LABS: Basophils # (auto) 0.04 K/uL (0.00-0.20); Basophils % (auto) 0.4 %; Eosinophils # (auto) 0.25 K/uL (0.00-0.50); Eosinophils % (auto) 2.4 %; Hematocrit (blood only) 41.6 % (37.0-47.0); Hemoglobin 13.2 g/dl (12.0-16.0); Immature Granulocytes # (auto) 0.06 K/uL (0.01-0.20); Immature Granulocytes % (auto) 0.6 %; Lymphocytes # (auto) 1.69 K/uL (1.20-3.40); Lymphocytes % (auto) 16.3 %; Mean Corpuscular Hemoglobin 26.8 pg (25.0-34.0); Mean Corpuscular Hgb Conc 31.7 g/dL (32.0-36.0); Mean Corpuscular Volume 84.4 fL (80.0-100.0); Mean Platelet Volume 10.4 fL (9.4-12.4); Monocytes # (auto) 0.71 K/uL (0.11-0.59); Monocytes % (auto) 6.8 %; Neutrophils # (auto) 7.65 K/uL (1.40-6.50); Neutrophils % (auto) 73.5 %; Platelet Count 264 K/uL (130-400); RDW Coefficient of Variation 14.6 % (11.5-14.5); RDW Standard Deviation 44.6 fL (36.4-46.3); Red Blood Count 4.93 M/uL (4.20-5.40)
[2023-11-05 18:41] LABS: Albumin Globulin Ratio 1.2 (0.9-2); Albumin Level 3.8 gm/dl (3.4-5.0); BUN Creatinine Ratio 14.3 (10-20); Bilirubin,Total 0.5 mg/dl (0.2-1.0); Calcium 9.3 mg/dl (8.6-10.3); Creatinine Clr Calc Pharmacy 77.4 ml/min; Est GFR (African American) 96.6 ml/min; Est GFR (Non-African American) 83.3 ml/min; Globulin 3.2 gm/dl (2.5-4.0); Magnesium 1.7 mg/dl (1.7-2.4); Potassium 3.5 mmol/L (3.5-5.1)
[2023-11-05 18:46] LABS: Troponin I High Sensitivity 6.6 pg/ml (0-14)
[2023-11-05 18:49] LABS: INR 0.9 (0.9-1.1); Partial Thromboplastin Time 28 Seconds (21-31); Prothrombin Time 10.4 Seconds (9.0-12.0)
[2023-11-05 19:05] LABS: Adenovirus PCR Not Detected (NotDetected); Bordetella parapertussis PCR Not Detected (NotDetected); Bordetella pertussis PCR Not Detected (NotDetected); Chlamydia pneumoniae PCR Not Detected (NotDetected); Coronavirus 229E PCR Not Detected (NotDetected); Coronavirus CoV-2 (COVID19)PCR Not Detected (NotDetected); Coronavirus HKU1 PCR Not Detected (NotDetected); Coronavirus NL63 PCR Not Detected (NotDetected); Coronavirus OC43PCR Not Detected (NotDetected); Human Metapneumovirus PCR Not Detected (NotDetected); Influenza A PCR Not Detected (NotDetected); Influenza B PCR Not Detected (NotDetected); Mycoplasma pneumoniae PCR Not Detected (NotDetected); Parainfluenza Virus 1 PCR Not Detected (NotDetected); Parainfluenza Virus 2 PCR Not Detected (NotDetected); Parainfluenza Virus 3 PCR DETECTED (NotDetected); Parainfluenza Virus 4 PCR Not Detected (NotDetected); Respiratory Syncytial VirusPCR Not Detected (NotDetected); Rhinovirus/Enterovirus PCR Not Detected (NotDetected)
--- NOTE | 2023-11-05 19:05 | Emergency Department Note ---
Impression & Plan COPD exacerbation, Abdominal pain, Infection due to parainfluenza virus 3, Rib pain, UTI (urinary tract infection) ED Provider Note CHIEF COMPLAINT: Shortness of breath, rib pain HISTORY OF PRESENTING ILLNESS: This 63-year-old female patient presents to the emergency department for evaluation of shortness of breath along with bilateral lower rib pain and upper abdominal pain. The patient states that her grandson picked her up around the ribs and abdomen and gave her a bear hug couple days ago and has had a lot of pain since. Developing worsening shortness of breath. A friend but also stays with her was recently diagnosed with pneumonia as well. She has been coughing, but denies any other URI symptoms. No fever. She smokes, but not sure how much she smokes a day. She is not on any blood thinners. Denies any urinary symptoms. Had diarrhea for 2 weeks, but now her stools are normal again. Denies hematochezia, melena, hematuria, hemoptysis, or hematemesis. She has a history of COPD and is on 2L of O2 at home. REVIEW OF SYSTEMS: See HPI for pertinent positives and pertinent negatives. ALLERGIES: Varenicline MEDICATIONS: See below PAST MEDICAL HISTORY: See below PHYSICAL EXAM: VITALS: Vitals are noted on the nurse's note and reviewed by myself. GENERAL: No acute distress, non-diaphoretic. SKIN: The skin was without obvious lacerations or abrasions. Capillary reflex less than 2 seconds. HEAD: Normocephalic. No scalp tenderness or step-offs felt. EYES: Pupils equal round and reactive to light and accommodation. Conjunctivae without injection, sclerae without icterus. Extraocular movements intact. NOSE: Patent without discharge. No sinus tenderness. No septal hematoma or bleeding. MOUTH: Mucous membranes moist. Pharynx without erythema or exudate. Uvula midline. Airway patent. Tongue does not deviate. NECK: Supple without nuchal rigidity. Cervical spine is nontender. Full range of motion of the neck without tenderness. HEART: Regular rate and rhythm without murmurs gallops or rubs. LUNGS: Clear to auscultation bilaterally with wheezes throughout without rales or rhonchi. Mild accessory muscle use initially, but no retractions. CHEST: The patient is tender to palpation over the bilateral lower anterior and lateral ribs. No fracture crepitus or flail chest. ABDOMEN: Positive bowel sounds x 4. Normal tympanic percussion. Soft, mildly tender to palpation in the upper abdomen. No masses or organomegaly. No guarding or rebound tenderness. MUSCULOSKELETAL: No tenderness of the thoracic or lumbar spine. No tenderness with pelvic rocking. Full range of motion without tenderness to palpation in all extremities. Peripheral pulses 2+. NEURO: Patient was alert and oriented to person place and time. Normal mental status exam. Normal sensation to light and sharp touch. No focal neurological deficits. DIFFERENTIAL DIAGNOSIS: Differential diagnosis includes fracture, dislocation, HI, PE, pneumothorax, hemothorax, hepatitis, pancreatitis, cholecystitis, cholelithiasis, appendicitis, kidney stone, pyelonephritis, UTI, gastritis, gastroenteritis, mesenteric adenitis, obstruction, constipation, hernia, abdominal abscess, perforation, diverticulitis, IBD, ischemic colitis, abdominal aortic aneurysm, , ectopic , ovarian cyst, ovarian torsion, acute salpingitis, or others. ED COURSE AND MEDICAL DECISION MAKING: MONITOR: Continuous groundwater monitoring technician: Order was placed for continuous groundwater monitoring technician. Patient was placed on the groundwater monitoring technician and continuous pulse ox. Patient was noted to be in normal sinus rhythm at an initial rate of 72 bpm per my interpretation. EKG: EKG was interpreted by myself as normal sinus rhythm at 91 bpm with right bundle branch block and left anterior fascicular block, but no acute ST or T wave changes. MEDICATIONS GIVEN: 500 mL normal saline solution bolus. DuoNeb treatment. Tylenol 1000 mg IV. Toradol 10 mg IV. Rocephin 2 g IV. Solu-Medrol 125 mg IV. INTERPRETATION OF LABS: I interpreted the labs with full lab results as below in the lab section of this note. Laboratory studies ordered include CBC, coags, CMP, magnesium, lipase, high-sensitivity troponin respiratory bio fire, and urinalysis. Clinically significant abnormalities include parainfluenza 3 infection. Glucose 229. Possible UTI with 3+ glucose, trace ketones, 3+ blood, 2+ leukocyte Estrace, greater than 50 white blood cells, 11-20 epithelial cells, and 1+ bacteria with urine culture pending. Blood cultures are pending. INTERPRETATION OF IMAGING: Imaging studies were interpreted by myself and read by radiology as per the imaging section of this note. CT scan of the chest with IV contrast showed no acute abnormalities including no rib fractures, pneumothorax, hemothorax, or pneumonia. CT scan of the abdomen and pelvis with IV contrast showed a right ovarian cyst and diverticulosis, but no other acute abnormalities. CONSULTATIONS: On-call hospitalist MDM SUMMARY: The patient was seen during a time of extreme volume and extreme acuity. Nursing triage protocols were initiated with IV lock, labs, and/or imaging studies conducted by protocol in the triage area. The patient was initially evaluated in a triage room and then re-examined once they were taken back to an exam room. The patient has had a cough and shortness of breath over the past couple days with development of lower rib pain and upper abdominal pain after her grandson picked her up around the ribs and abdomen and "bearhugged" her a couple days ago. The patient states that her symptoms have gotten progressively worse. She has a history of COPD and is normally on 2 L of oxygen at home. Her roommate was also recently diagnosed with pneumonia. Respiratory bio fire was positive for parainfluenza 3. Urinalysis showed a possible UTI with urine culture pending. CT scan of the chest, abdomen, and pelvis with IV contrast showed no acute abnormalities. The patient was wheezing on exam, but was given a DuoNeb treatment with resolution of the wheezing and accessory muscle use. Blood cultures were drawn and the patient was given Rocephin 2 g IV to treat for the possible UTI. She was also given a dose of Solu-Medrol. She was given IV Tylenol and IV Toradol for her pain. The patient states that she does not feel that she can manage her pain and shortness of breath at home. I had a meaningful discussion about this patient with Dr. Flood who agrees with my assessment and the treatment plan. I spoke with the on-call hospitalist who agreed to admit the patient for further evaluation and treatment. Please refer to their dictation for further details. The patient's care was transferred in stable condition. DIAGNOSIS: COPD exacerbation Parainfluenza 3 infection Rib pain Abdominal pain ? UTI Past Med/Surg History Medical History Anxiety Chronic obstructive pulmonary disease Depression Diabetes mellitus, type 2 IDDM Fibromyalgia GERD (gastroesophageal reflux disease) History of recent hospitalization Pancreatitis (09/2020; [facility], [place]) Hx of Green's palsy Remote hx, residual occasional drooping of left side of mouth Hx of hepatitis C s/p treatment HX: breast cancer Left breast (2012) s/p radiation, lumpectomy and oral chemo Hyperlipidemia Hypertension Questionable HTN hx, appears Lisinopril for renal protection 2/2 diabetes Osteoarthritis Peripheral neuropathy Legs, feet Schizoaffective disorder Surgical History History of ankle surgery Right ankle x3 History of bilateral tubal ligation History of cholecystectomy History of colonoscopy History of dilatation and curettage History of esophagogastroduodenoscopy (EGD) EGD (10/11/20) MAC at [facility], [place] History of hysterectomy History of lumpectomy of left breast History of open reduction and internal fixation (ORIF) procedure Right ankle History of surgery Calcium deposit removal from back History of tooth extraction All teeth Family History Father Family history of diabetes mellitus Other No family history of adverse response to anesthesia Social History Smoking Status: Current every day smoker Tobacco Type: Cigarettes Cigarettes Per Day: 10-20 cigarettes/day; Second Hand Exposure: Yes; Do You Dip or Chew Tobacco: No; Hx Alcohol Use: No Hx Substance Use: No Preferred Language: Omani Communication Ability: Effective Manager Of Maintenance Required: No Beliefs That Will Affect Care: None Current Living Situation: Family Current Living Situation Comment: home with son Feels Safe at Home: Yes Assistive Devices: Nebulizer and Oxygen - at Night Allergies Allergies Allergy/AdvReac Type Severity Reaction Status Date / Time varenicline AdvReac Intermediate Nightmares Verified 11/05/23 23:40 Home Meds Home Medications Medication Instructions Recorded Confirmed duloxetine 60 mg capsule,delayed 60 mg PO QAM 08/21/18 11/05/23 release simvastatin 20 mg tablet 20 mg PO HS 08/21/18 11/05/23 cyclobenzaprine 10 mg tablet 10 mg PO BID PRN Muscle Spasm 10/10/20 11/05/23 furosemide 20 mg tablet 20 mg PO QAM 10/10/20 11/05/23 omeprazole 40 mg capsule,delayed 40 mg PO QAM 02/08/21 11/05/23 release albuterol sulfate 90 mcg/actuation 2 puff inhalation Q6H PRN 12/15/22 11/05/23 aerosol inhaler Shortness Of Breath Or Wheezing chlorhexidine gluconate 4 % 1 applic topical DAILY 12/15/22 11/05/23 topical liquid (Hibiclens) clindamycin phosphate 1 % topical 1 applic topical BID PRN .FLARE UP 12/15/22 11/05/23 gel diclofenac sodium 1 % topical gel 4 g topical BID PRN Pain 12/15/22 11/05/23 empagliflozin 10 mg tablet 10 mg PO QAM 12/15/22 11/05/23 (Jardiance) fluticasone propionate 50 2 spray intranasal QAM 12/15/22 11/05/23 mcg/actuation nasal spray,suspension gabapentin 800 mg tablet 800 mg PO TID 12/15/22 11/05/23 hydroxyzine HCl 50 mg tablet 50 mg PO BID 12/15/22 11/05/23 metformin 500 mg tablet,extended 1,000 mg PO BIDM 12/15/22 11/05/23 release 24 hr nystatin 100,000 unit/gram topical 1 applic topical BID PRN 12/15/22 11/05/23 powder .IRRITATION ondansetron HCl 4 mg tablet 4 mg PO Q8 PRN Nausea 12/15/22 11/05/23 prazosin 2 mg capsule 2 - 4 mg PO HS PRN .NIGHTMERES 12/15/22 11/05/23 quetiapine 200 mg tablet 200 mg PO HS 12/15/22 11/05/23 quetiapine 50 mg tablet 50 mg PO QAM 12/15/22 11/05/23 trazodone 150 mg tablet 300 mg PO HS 12/15/22 11/05/23 acetaminophen 500 mg tablet 500 - 1,500 mg PO DAILY PRN Pain 11/05/23 11/05/23 fluoxetine 20 mg capsule 20 mg PO QAM 11/05/23 11/05/23 ipratropium 0.5 mg-albuterol 3 mg 3 ml inhalation QID 11/05/23 11/05/23 (2.5 mg base)/3 mL nebulization soln latanoprost 0.005 % eye drops 1 drp OPB QPM 11/05/23 11/05/23 levothyroxine 200 mcg tablet 200 mcg PO DAILYBB 11/05/23 11/05/23 semaglutide 0.25 mg or 0.5 mg (2 2 mg subcut WK 11/05/23 11/05/23 mg/3 mL) subcutaneous pen injector Previous Rx's Medication Instructions Recorded potassium chloride 20 mEq 20 meq PO BID #4 tabs 02/06/22 tablet,extended release Results & Data (ED) Vital Signs Vital Signs - 24 hr 11/05/23 17:29 11/05/23 18:55 11/05/23 20:21 Temperature 36.8 C Temperature Source Temporal Artery Scan Pulse Rate 90 78 Pulse Rate [Apical] 68 Pulse Rhythm [Apical] Regular Respiratory Rate 20 22 Respiratory Effort / Characteristics Non-Labored Spontaneous Non-Labored Spontaneous Respiratory Depth Normal Normal Respiratory Pattern Regular Blood Pressure 113/54 L Blood Pressure [Right Arm] 154/97 H Blood Pressure Mean 73 Blood Pressure Mean [Right Arm] 116 Pulse Oximetry 92 95 Oxygen Delivery Method Room Air Nebulizer Oxygen Flow Rate 5 Sepsis Recent Fever Within 48 Hours No Sepsis New/Unexplained Change in Mental Status No Sepsis Action Taken by Nursing No Action Required 11/05/23 22:55 11/05/23 23:00 11/06/23 00:08 Temperature Temperature Source Pulse Rate 65 Pulse Rate [Apical] 69 67 Pulse Rhythm [Apical] Respiratory Rate 16 22 Respiratory Effort / Characteristics Respiratory Depth Respiratory Pattern Blood Pressure Blood Pressure [Right Arm] 154/97 H Blood Pressure Mean Blood Pressure Mean [Right Arm] 116 Pulse Oximetry 95 96 Oxygen Delivery Method Nasal Cannula Nasal Cannula Oxygen Flow Rate 2 2 Sepsis Recent Fever Within 48 Hours Sepsis New/Unexplained Change in Mental Status Sepsis Action Taken by Nursing Laboratory Data 11/05/23 17:55 11/05/23 17:55 Lab Results 11/05/23 11/05/23 11/06/23 Range/Units 17:55 19:44 00:52 WBC 10.40 (4.8-10.8) K/ul RBC 4.93 (4.20-5.40) M/uL Hgb 13.2 (12.0-16.0) g/dl Hct 41.6 (37.0-47.0) % MCV 84.4 (80.0-100.0) fL MCH 26.8 (25.0-34.0) pg MCHC 31.7 L (32.0-36.0) g/dL RDW Std Deviation 44.6 (36.4-46.3) fL RDW Coeff of Jessy 14.6 H (11.5-14.5) % Plt Count 264 (130-400) K/uL MPV 10.4 (9.4-12.4) fL Immature Gran % (Auto) 0.6 % Neut % (Auto) 73.5 % Lymph % (Auto) 16.3 % [place] % (Auto) 6.8 % Eos % (Auto) 2.4 % Baso % (Auto) 0.4 % Neut # (Auto) 7.65 H (1.40-6.50) K/uL Lymph # (Auto) 1.69 (1.20-3.40) K/uL [place] # (Auto) 0.71 H (0.11-0.59) K/uL Eos # (Auto) 0.25 (0.00-0.50) K/uL Baso # (Auto) 0.04 (0.00-0.20) K/uL Immature Gran # (Auto) 0.06 (0.01-0.20) K/uL PT 10.4 (9.0-12.0) Seconds INR 0.9 (0.9-1.1) APTT 28 (21-31) Seconds PTT Ratio 1.0 VBG pH 7.26 L (7.36-7.41) VBG pCO2 60 H (38-50) mmHg VBG pO2 26 mmHg VBG HCO3 27 mmol/L VBG O2 Saturation < 60.0 % VBG Base Excess -1.4 mEq/L Sodium 136 (136-145) mmol/L Potassium 3.5 (3.5-5.1) mmol/L Chloride 102 (98-107) mmol/L Carbon Dioxide 24 (21-32) mmol/L Anion Gap 10 (3-11) BUN 11 (6-23) mg/dl Creatinine 0.77 (0.6-1.2) mg/dl Est Cr Clr Drug Dosing 77.4 ml/min Est GFR ( Amer) 96.6 ml/min Est GFR (Non-Af Amer) 83.3 ml/min BUN/Creatinine Ratio 14.3 (10-20) Glucose 229 H (70-99(Fasting)) mg/dl POC Glucose (70-99) mg/dl Calcium 9.3 (8.6-10.3) mg/dl Magnesium 1.7 (1.7-2.4) mg/dl Total Bilirubin 0.5 (0.2-1.0) mg/dl AST 8 L (13-39) U/L ALT 6 L (7-52) U/L Alkaline Phosphatase 90 (34-104) U/L Troponin I High Sens 6.6 (0-14) pg/ml Total Protein 7.0 (6.0-8.3) gm/dl Albumin 3.8 (3.4-5.0) gm/dl Globulin 3.2 (2.5-4.0) gm/dl Albumin/Globulin Ratio 1.2 (0.9-2) Lipase 5 L (11-82) U/L Urine Color Yellow Urine Appearance Cloudy A (Clear) Urine pH 6.0 (4.5-7.5) Ur Specific [place] 1.033 H (1.000-1.030) Urine Protein Negative (Negative) Urine Glucose (UA) 3+ H (Negative) Urine Ketones Trace H (Negative) Urine Blood 3+ H (Negative) Urine Nitrite Negative (Negative) Urine Bilirubin Negative (Negative) Urine Urobilinogen Negative (Negative) Ur Leukocyte Esterase 2+ H (Negative) Urine WBC (Auto) >50 H (0-5) /hpf Urine RBC (Auto) 11-20 H (0-2) /hpf U Hyaline Cast (Auto) 0-2 (0-2) /lpf U Epithel Cells (Auto) 11-20 H (0-2) /hpf Urine Bacteria (Auto) 1+ H (None Seen) Adenovirus (PCR) Not Detected (NotDetected) B. pertussis DNA (PCR) Not Detected (NotDetected) B.parapertussis DNA PCR Not Detected (NotDetected) C. pneumoniae DNA (PCR) Not Detected (NotDetected) Coronavirus OC43 (PCR) Not Detected (NotDetected) Coronavirus HKU1 (PCR) Not Detected (NotDetected) Coronavirus 229E (PCR) Not Detected (NotDetected) SARS-CoV-2 (PCR) Not Detected (NotDetected) Coronavirus NL63 (PCR) Not Detected (NotDetected) Human Metapneumovir PCR Not Detected (NotDetected) Influenza Type A (PCR) Not Detected (NotDetected) Influenza Type B (PCR) Not Detected (NotDetected) M. pneumoniae (PCR) Not Detected (NotDetected) Parainfluenza 1 (PCR) Not Detected (NotDetected) Parainfluenza 2 (PCR) Not Detected (NotDetected) Parainfluenza 3 (PCR) DETECTED A (NotDetected) Parainfluenza 4 (PCR) Not Detected (NotDetected) RSV (PCR) Not Detected (NotDetected) Entero/Rhino (PCR) Not Detected (NotDetected) 11/06/23 Range/Units 00:53 WBC (4.8-10.8) K/ul RBC (4.20-5.40) M/uL Hgb (12.0-16.0) g/dl Hct (37.0-47.0) % MCV (80.0-100.0) fL MCH (25.0-34.0) pg MCHC (32.0-36.0) g/dL RDW Std Deviation (36.4-46.3) fL RDW Coeff of Jessy (11.5-14.5) % Plt Count (130-400) K/uL MPV (9.4-12.4) fL Immature Gran % (Auto) % Neut % (Auto) % Lymph % (Auto) % [place] % (Auto) % Eos % (Auto) % Baso % (Auto) % Neut # (Auto) (1.40-6.50) K/uL Lymph # (Auto) (1.20-3.40) K/uL [place] # (Auto) (0.11-0.59) K/uL Eos # (Auto) (0.00-0.50) K/uL Baso # (Auto) (0.00-0.20) K/uL Immature Gran # (Auto) (0.01-0.20) K/uL PT (9.0-12.0) Seconds INR (0.9-1.1) APTT (21-31) Seconds PTT Ratio VBG pH (7.36-7.41) VBG pCO2 (38-50) mmHg VBG pO2 mmHg VBG HCO3 mmol/L VBG O2 Saturation % VBG Base Excess mEq/L Sodium (136-145) mmol/L Potassium (3.5-5.1) mmol/L Chloride (98-107) mmol/L Carbon Dioxide (21-32) mmol/L Anion Gap (3-11) BUN (6-23) mg/dl Creatinine (0.6-1.2) mg/dl Est Cr Clr Drug Dosing ml/min Est GFR ( Amer) ml/min Est GFR (Non-Af Amer) ml/min BUN/Creatinine Ratio (10-20) Glucose (70-99(Fasting)) mg/dl POC Glucose 248 H (70-99) mg/dl Calcium (8.6-10.3) mg/dl Magnesium (1.7-2.4) mg/dl Total Bilirubin (0.2-1.0) mg/dl AST (13-39) U/L ALT (7-52) U/L Alkaline Phosphatase (34-104) U/L Troponin I High Sens (0-14) pg/ml Total Protein (6.0-8.3) gm/dl Albumin (3.4-5.0) gm/dl Globulin (2.5-4.0) gm/dl Albumin/Globulin Ratio (0.9-2) Lipase (11-82) U/L Urine Color Urine Appearance (Clear) Urine pH (4.5-7.5) Ur Specific [place] (1.000-1.030) Urine Protein (Negative) Urine Glucose (UA) (Negative) Urine Ketones (Negative) Urine Blood (Negative) Urine Nitrite (Negative) Urine Bilirubin (Negative) Urine Urobilinogen (Negative) Ur Leukocyte Esterase (Negative) Urine WBC (Auto) (0-5) /hpf Urine RBC (Auto) (0-2) /hpf U Hyaline Cast (Auto) (0-2) /lpf U Epithel Cells (Auto) (0-2) /hpf Urine Bacteria (Auto) (None Seen) Adenovirus (PCR) (NotDetected) B. pertussis DNA (PCR) (NotDetected) B.parapertussis DNA PCR (NotDetected) C. pneumoniae DNA (PCR) (NotDetected) Coronavirus OC43 (PCR) (NotDetected) Coronavirus HKU1 (PCR) (NotDetected) Coronavirus 229E (PCR) (NotDetected) SARS-CoV-2 (PCR) (NotDetected) Coronavirus NL63 (PCR) (NotDetected) Human Metapneumovir PCR (NotDetected) Influenza Type A (PCR) (NotDetected) Influenza Type B (PCR) (NotDetected) M. pneumoniae (PCR) (NotDetected) Parainfluenza 1 (PCR) (NotDetected) Parainfluenza 2 (PCR) (NotDetected) Parainfluenza 3 (PCR) (NotDetected) Parainfluenza 4 (PCR) (NotDetected) RSV (PCR) (NotDetected) Entero/Rhino (PCR) (NotDetected) Administered Medications Magnesium Sulfate/Dextrose (Magnesium Sulfate / D5w) 1 gm in 100 mls @ 50 mls/hr IV Q2H ANGIE Stop: 11/06/23 02:29 Last Admin: 11/05/23 23:03 Dose: 50 mls/hr Documented By: LUIS Insulin Aspart (Insulin Aspart Per Unit Charge) 0 units SC ACHS ANGIE Stop: 12/06/23 00:14 Last Admin: 11/06/23 01:04 Dose: 5 units Documented By: ABBEY Co-signed By: ROMI Insulin Glargine (Lantus Per Unit Charge) 10 units SQ HS ANGIE Stop: 12/06/23 00:14 Last Admin: 11/06/23 01:04 Dose: 10 units Documented By: ABBEY Co-signed By: ROMI Discontinued Medications Albuterol (Albut/Ipratrop 3mg/0.5mg Neb 3 Ml Vial) 3 ml NEB NOW STA; Protocol Stop: 11/05/23 19:11 Last Admin: 11/05/23 20:16 Dose: 3 ml Documented By: LUIS Sodium Chloride (Nss) 500 mls @ 999 mls/hr IV .Q31M ONE Stop: 11/05/23 19:40 Last Infusion: 11/05/23 20:49 Dose: Infused Documented By: Admin: 11/05/23 20:16 Dose: 999 mls/hr Documented By: LUIS Acetaminophen (Ofirmev) 1,000 mg in 100 mls @ 400 mls/hr IV NOW STA Stop: 11/05/23 19:24 Last Infusion: 11/05/23 20:36 Dose: Infused Documented By: Admin: 11/05/23 20:16 Dose: 400 mls/hr Documented By: LUIS Ioversol (Optiray 320 100ml) 92 ml IV ONCE ONE Stop: 11/05/23 19:50 Last Admin: 11/05/23 19:50 Dose: 92 ml Documented By: SHIRA Ketorolac Tromethamine (Ketorolac Tromethamine 15 Mg/Ml Vial) 10 mg IV NOW ONE Stop: 11/05/23 21:36 Last Admin: 11/05/23 23:03 Dose: 10 mg Documented By: LUIS Methylprednisolone (Methylprednisolone 125 Mg/2 Ml Vial) 125 mg IV NOW STA Stop: 11/05/23 21:22 Last Admin: 11/05/23 23:03 Dose: 125 mg Documented By: LUIS Potassium Chloride (Potassium Chloride Pwd 20 Meq Pack) 40 meq PO NOW STA Stop: 11/05/23 22:19 Last Admin: 11/05/23 23:12 Dose: 40 meq Documented By: LUIS Imaging Data Radiologist's Impression: Abdomen/Pelvis CT 11/05/23 17:32 Exam(s): CT ABDOMEN + PELVIS With Contrast IV Amt: 92ml optiray 320 EXAM: CT Abdomen and Pelvis With Intravenous Contrast CLINICAL HISTORY: Reason for exam: Upper abdominal pain, SOB, recent trauma. TECHNIQUE: Axial computed tomography images of the abdomen and pelvis with intravenous contrast. CTDI is 22.37 mGy and DLP is 800.67 mGy-cm. Automated exposure control was utilized for the study. A dose lowering technique was utilized adhering to the principles of ALARA. CONTRAST: Patient received 92ml optiray 320 of IV contrast COMPARISON: No relevant prior studies available. FINDINGS: Lung bases: Unremarkable. No mass. No consolidation. ABDOMEN: Liver: Unremarkable. No mass. Gallbladder and bile ducts: Cholecystectomy. No ductal dilation. Pancreas: Unremarkable. No mass. No ductal dilation. Spleen: Unremarkable. No splenomegaly. Adrenals: Unremarkable. No mass. Kidneys and ureters: Unremarkable. No solid mass. No hydronephrosis. Stomach and bowel: Diverticulosis, without acute diverticulitis. No small bowel obstruction. No free intraperitoneal air. PELVIS: Appendix: Normal appendix. Bladder: Decompressed urinary bladder. Reproductive: Hysterectomy. RIGHT ovarian cyst measures 3.8 x 3.7 cm. ABDOMEN and PELVIS: Intraperitoneal space: Unremarkable. No free air. No significant fluid collection. Bones/joints: Degenerative changes of the spine. No acute fracture. No dislocation. Soft tissues: Unremarkable. Vasculature: Atherosclerotic changes of the aorta. No abdominal aortic aneurysm. Lymph nodes: Unremarkable. No enlarged lymph nodes. IMPRESSION: 1. Normal appendix. 2. Cholecystectomy. 3. Hysterectomy. 4. RIGHT ovarian cyst measures 3.8 x 3.7 cm. 5. Diverticulosis, without acute diverticulitis. No small bowel obstruction. No free intraperitoneal air. Electronically signed by: Go Stewart MD 11/05/23 20:[address] 11/05/23 17:32 Exam(s): CT CHEST With Contrast IV Amt: 92ml optiray 320 EXAM: CT Chest With Intravenous Contrast CLINICAL HISTORY: Reason for exam: SOB, chest pain, recent trauma. TECHNIQUE: Axial computed tomography images of the chest with intravenous contrast. CTDI is 22.37 mGy and DLP is 1231.35 mGy-cm. Automated exposure control was utilized for the study. A dose lowering technique was utilized adhering to the principles of ALARA. CONTRAST: Patient received 92ml optiray 320 of IV contrast COMPARISON: No relevant prior studies available. FINDINGS: Lungs: Unremarkable. No mass. No consolidation. Pleural space: Unremarkable. No pneumothorax. No significant effusion. Heart: Unremarkable. No cardiomegaly. No significant pericardial effusion. No significant coronary artery calcifications. Bones/joints: Unremarkable. No acute fracture. No dislocation. Soft tissues: Unremarkable. Vasculature: Unremarkable. No thoracic aortic aneurysm. No acute pulmonary embolism. Lymph nodes: Unremarkable. No enlarged lymph nodes. Liver: Hepatic steatosis. IMPRESSION: No acute findings in the chest. Electronically signed by: Go Stewart MD 11/05/23 20:55 PM Discharge Plan Visit Data Chief Complaint: Shortness of Breath/Dyspnea Stated Complaint: SOB, RIB PAIN BOTH SIDES/POSSIBLE BREAK ED Provider: Kaleb Flood ED Midlevel Provider: Mickie Carney Discharge Problem: COPD exacerbation, Abdominal pain, Infection due to parainfluenza virus 3, Rib pain, UTI (urinary tract infection) Patient Disposition: Admitted As Inpatient Condition: Good Forms Stand Alone Forms: Casualing Prescriptions Prescriptions: No Action duloxetine 60 mg Capsule,Delayed Release(Dr/Ec) 60 mg PO QAM simvastatin 20 mg Tablet 20 mg PO HS potassium chloride 20 mEq tablet extended release 20 meq PO BID Qty: 4 0RF cyclobenzaprine 10 mg tablet 10 mg PO BID PRN (Reason: Muscle Spasm) furosemide 20 mg tablet 20 mg PO QAM omeprazole 40 mg Capsule,Delayed Release(Dr/Ec) 40 mg PO QAM quetiapine 200 mg tablet 200 mg PO HS hydroxyzine HCl 50 mg tablet 50 mg PO BID gabapentin 800 mg tablet 800 mg PO TID metformin 500 mg Tablet Extended Release 24 Hr 1,000 mg PO BIDM ondansetron HCl 4 mg tablet 4 mg PO Q8 PRN (Reason: Nausea) clindamycin phosphate 1 % Gel 1 applic TOPICAL BID PRN (Reason: .FLARE UP) trazodone 150 mg tablet 300 mg PO HS nystatin 100,000 unit/gram Powder 1 applic TOPICAL BID PRN (Reason: .IRRITATION) albuterol sulfate 90 mcg/actuation Hfa Aerosol Inhaler 2 puff INHALATION Q6H PRN (Reason: Shortness Of Breath Or Wheezing) fluticasone propionate 50 mcg/actuation spray,suspension 2 spray INTRANASAL QAM chlorhexidine gluconate [Hibiclens] 4 % liquid 1 applic TOPICAL DAILY Rx Instructions: WASH UNDERARMS AND GROIN DAILY prazosin 2 mg capsule 2 - 4 mg PO HS PRN (Reason: .NIGHTMERES) quetiapine 50 mg tablet 50 mg PO QAM diclofenac sodium 1 % Gel 4 g TOPICAL BID PRN (Reason: Pain) Rx Instructions: APPLY TO RIGHT CALF, ANKLE, AND LEFT SHOULDER TWO TIMES DAILY Jardiance 10 mg tablet 10 mg PO QAM ipratropium-albuterol 0.5 mg-3 mg(2.5 mg base)/3 mL solution for nebulization 3 ml INHALATION QID Rx Instructions: INHALE 3ML IN THE AM, AT NOON, IN THE EVENING, AND AT BEDTIME. fluoxetine 20 mg capsule 20 mg PO QAM levothyroxine 200 mcg tablet 200 mcg PO DAILYBB acetaminophen 500 mg Tablet 500 - 1,500 mg PO DAILY PRN (Reason: Pain) latanoprost 0.005 % drops 1 drp OPB QPM semaglutide 0.25 mg or 0.5 mg (2 mg/3 mL) Pen Injector 2 mg SUBCUT WK Rx Instructions: TAKE THIS MED EVERY SATURDAY Referrals Referrals: PCP,NO [Physician] - Discharge Problem: Abdominal pain Qualifiers: Abdominal location: generalized Qualified Code(s): R10.84 - Generalized abdominal pain UTI (urinary tract infection) Qualifiers: Urinary tract infection type: acute cystitis Hematuria presence: without hematuria Qualified Code(s): N30.00 - Acute cystitis without hematuria
[2023-11-05] MEDS: OPTIRAY 320 100ml IV ONE (19:50)
[2023-11-05] MEDS: ACETAMINOPHEN 1,000 MG/100 ML VIAL IV STA (20:16)
[2023-11-05] MEDS: ALBUT/IPRATROP 3MG/0.5MG NEB 3 ML VIAL NEB STA (20:16)
[2023-11-05] MEDS: SODIUM CHLORIDE 0.9% 500 ML IV ONE (20:16)
[2023-11-05 20:30] LABS: Appearance Urine Cloudy (Clear); Bacteria Urine Automated 1+ (None Seen); Bilirubin Urine Negative (Negative); Blood Urine 3+ (Negative); Cast Urine Automated 0-2 /lpf (0-2); Color Urine Yellow; Glucose Urine UA 3+ (Negative); Ketones Urine Trace (Negative); Leukocyte Esterase Urine 2+ (Negative); Nitrite Urine Negative (Negative); Protein Urine Negative (Negative); Specific Gravity Urine 1.033 (1.000-1.030); Urobilinogen Urine Negative (Negative); WBC Urine Automated >50 /hpf (0-5)
--- NOTE | 2023-11-05 20:56 | CT Scan Report ---
Exam(s): CT CHEST With Contrast IV Amt: 92ml optiray 320 EXAM: CT Chest With Intravenous Contrast CLINICAL HISTORY: Reason for exam: SOB, chest pain, recent trauma. TECHNIQUE: Axial computed tomography images of the chest with intravenous contrast. CTDI is 22.37 mGy and DLP is 1231.35 mGy-cm. Automated exposure control was utilized for the study. A dose lowering technique was utilized adhering to the principles of ALARA. CONTRAST: Patient received 92ml optiray 320 of IV contrast COMPARISON: No relevant prior studies available. FINDINGS: Lungs: Unremarkable. No mass. No consolidation. Pleural space: Unremarkable. No pneumothorax. No significant effusion. Heart: Unremarkable. No cardiomegaly. No significant pericardial effusion. No significant coronary artery calcifications. Bones/joints: Unremarkable. No acute fracture. No dislocation. Soft tissues: Unremarkable. Vasculature: Unremarkable. No thoracic aortic aneurysm. No acute pulmonary embolism. Lymph nodes: Unremarkable. No enlarged lymph nodes. Liver: Hepatic steatosis. IMPRESSION: No acute findings in the chest. Electronically signed by: Go Stewart MD 11/05/23 20:55 PM
--- NOTE | 2023-11-05 20:59 | CT Scan Report ---
Exam(s): CT ABDOMEN + PELVIS With Contrast IV Amt: 92ml optiray 320 EXAM: CT Abdomen and Pelvis With Intravenous Contrast CLINICAL HISTORY: Reason for exam: Upper abdominal pain, SOB, recent trauma. TECHNIQUE: Axial computed tomography images of the abdomen and pelvis with intravenous contrast. CTDI is 22.37 mGy and DLP is 800.67 mGy-cm. Automated exposure control was utilized for the study. A dose lowering technique was utilized adhering to the principles of ALARA. CONTRAST: Patient received 92ml optiray 320 of IV contrast COMPARISON: No relevant prior studies available. FINDINGS: Lung bases: Unremarkable. No mass. No consolidation. ABDOMEN: Liver: Unremarkable. No mass. Gallbladder and bile ducts: Cholecystectomy. No ductal dilation. Pancreas: Unremarkable. No mass. No ductal dilation. Spleen: Unremarkable. No splenomegaly. Adrenals: Unremarkable. No mass. Kidneys and ureters: Unremarkable. No solid mass. No hydronephrosis. Stomach and bowel: Diverticulosis, without acute diverticulitis. No small bowel obstruction. No free intraperitoneal air. PELVIS: Appendix: Normal appendix. Bladder: Decompressed urinary bladder. Reproductive: Hysterectomy. RIGHT ovarian cyst measures 3.8 x 3.7 cm. ABDOMEN and PELVIS: Intraperitoneal space: Unremarkable. No free air. No significant fluid collection. Bones/joints: Degenerative changes of the spine. No acute fracture. No dislocation. Soft tissues: Unremarkable. Vasculature: Atherosclerotic changes of the aorta. No abdominal aortic aneurysm. Lymph nodes: Unremarkable. No enlarged lymph nodes. IMPRESSION: 1. Normal appendix. 2. Cholecystectomy. 3. Hysterectomy. 4. RIGHT ovarian cyst measures 3.8 x 3.7 cm. 5. Diverticulosis, without acute diverticulitis. No small bowel obstruction. No free intraperitoneal air. Electronically signed by: Go Stewart MD 11/05/23 20:58 PM
--- NOTE | 2023-11-05 21:22 | Emergency Department Note ---
ED Visit Note I was consulted in regards to the patient's presentation and plan of care by the Advanced Practice Provider. I engaged in a detailed/meaningful discussion with the Advanced Practice Provider in regards to this patient's workup and plan of care. Please see the Advanced Practice Provider's note for full details of the patient encounter. I agree with the assessment and plan of Mickie Carney PA-C. Kaleb Flood, DO Emergency Medicine .
[2023-11-05] MEDS: KETOROLAC TROMETHAMINE 15 MG/ML VIAL IV ONE (23:03)
[2023-11-05] MEDS: MAGNESIUM SULFATE / D5W 1 GM/100 ML BAG IV SCH (23:03)
[2023-11-05] MEDS: methylPREDNISolone 125 MG/2 ML VIAL IV STA (23:03)
[2023-11-05] MEDS: POTASSIUM CHLORIDE PWD 20 MEQ PACK PO STA (23:12)
--- NOTE | 2023-11-05 23:51 | History & Physical Report ---
Date of Service November 05, 2023 Assessment & Plan (1) Respiratory failure with hypercapnia: Plan: Respiratory acidosis on VBG Secondary to COPD exacerbation/complicated bronchitis Rule out PE given pleuritic chest pain complaints and abnormal dimer Encephalopathy secondary to above Rule out substance abuse given history chronic diastolic heart failure, patient on the dry side hyperlipidemia/statin intolerance DM2 insulin requiring, suboptimal control as of recent hemoglobin A1c of 10.8 last month hypothyroidism, euthyroid as of recent outpatient TSH last month HCV status post Rx schizoaffective disorder/mood disorder breast cancer in situ status post surgery status post tamoxifen past alcohol abuse ongoing tobacco abuse PCU BiPAP Follow-up ABG Doxycycline, nebs RTC, low-dose prednisone course given poorly controlled DM Pulmonary consult if without improvement CT angio chest Re: Pleuritic chest pain rule out PE (24-hour IV dye clearance required after imaging done at the ER) IV heparin until PE ruled out Check urine tox Hold parameters for neuropsychotropic medications for sedation confusion Basal bolus insulin, ISS BG goal 1 10-1 40 DVT prophylaxis with IV heparin Full code Total critical care time was 40 minutes. Text document was generated using [employer] voice recognition software. It may contain grammatical or spelling errors. Kindly contact undersigned for clarification of any documentation item in question. History of Present Illness Chief Complaint: Shortness of breath, chest pain Primary Care Provider: Ania Rice MD History obtained from patient and records. Limited history from patient secondary to lethargic state. Medical history significant for chronic diastolic heart failure (EF 55-60, TTE 2022), COPD, hyperlipidemia/statin intolerance, DM2 insulin requiring, hypothyroidism, HCV status post Rx, schizoaffective disorder, mood disorder, breast cancer in situ status post surgery status post tamoxifen, past alcohol abuse, substance abuse as per records, ongoing tobacco abuse. Last confinement 2022 for chest pain and COPD exacerbation. 1 week history of junky cough symptoms and worsening shortness of breath. Pleuritic chest pain. Possible sick contact at home. Denies aspiration. No fever, no chills. Denies abdominal pain or UTI symptoms. Solu-Medrol, neb treatment, and ceftriaxone administered at the ER. Patient later noted to be lethargic at the ER. Medical History as above Surgical History : Breast biopsy, tibia surgery, dental surgery, toe surgery cholecystectomy, BTL, partial hysterectomy Family History : Asthma, DM Personal/Social history : Half pack daily, past alcohol abuse, disabled Allergies Allergy/AdvReac Type Severity Reaction Status Date / Time varenicline AdvReac Intermediate Nightmares Verified 11/05/23 23:40 Home Medications Medication Instructions Recorded Confirmed Type duloxetine 60 mg capsule,delayed 60 mg PO QAM 08/21/18 11/05/23 History release simvastatin 20 mg tablet 20 mg PO HS 08/21/18 11/05/23 History cyclobenzaprine 10 mg tablet 10 mg PO BID PRN Muscle Spasm 10/10/20 11/05/23 History furosemide 20 mg tablet 20 mg PO QAM 10/10/20 11/05/23 History omeprazole 40 mg capsule,delayed 40 mg PO QAM 02/08/21 11/05/23 History release potassium chloride 20 mEq 20 meq PO BID #4 tabs 02/06/22 11/05/23 Rx tablet,extended release albuterol sulfate 90 mcg/actuation 2 puff inhalation Q6H PRN 12/15/22 11/05/23 History aerosol inhaler Shortness Of Breath Or Wheezing chlorhexidine gluconate 4 % 1 applic topical DAILY 12/15/22 11/05/23 History topical liquid (Hibiclens) clindamycin phosphate 1 % topical 1 applic topical BID PRN .FLARE UP 12/15/22 11/05/23 History gel diclofenac sodium 1 % topical gel 4 g topical BID PRN Pain 12/15/22 11/05/23 History empagliflozin 10 mg tablet 10 mg PO QAM 12/15/22 11/05/23 History (Jardiance) fluticasone propionate 50 2 spray intranasal QAM 12/15/22 11/05/23 History mcg/actuation nasal spray,suspension gabapentin 800 mg tablet 800 mg PO TID 12/15/22 11/05/23 History hydroxyzine HCl 50 mg tablet 50 mg PO BID 12/15/22 11/05/23 History metformin 500 mg tablet,extended 1,000 mg PO BIDM 12/15/22 11/05/23 History release 24 hr nystatin 100,000 unit/gram topical 1 applic topical BID PRN 12/15/22 11/05/23 History powder .IRRITATION ondansetron HCl 4 mg tablet 4 mg PO Q8 PRN Nausea 12/15/22 11/05/23 History prazosin 2 mg capsule 2 - 4 mg PO HS PRN .NIGHTMERES 12/15/22 11/05/23 History quetiapine 200 mg tablet 200 mg PO HS 12/15/22 11/05/23 History quetiapine 50 mg tablet 50 mg PO QAM 12/15/22 11/05/23 History trazodone 150 mg tablet 300 mg PO HS 12/15/22 11/05/23 History acetaminophen 500 mg tablet 500 - 1,500 mg PO DAILY PRN Pain 11/05/23 11/05/23 History fluoxetine 20 mg capsule 20 mg PO QAM 11/05/23 11/05/23 History ipratropium 0.5 mg-albuterol 3 mg 3 ml inhalation QID 11/05/23 11/05/23 History (2.5 mg base)/3 mL nebulization soln latanoprost 0.005 % eye drops 1 drp OPB QPM 11/05/23 11/05/23 History levothyroxine 200 mcg tablet 200 mcg PO DAILYBB 11/05/23 11/05/23 History semaglutide 0.25 mg or 0.5 mg (2 2 mg subcut WK 11/05/23 11/05/23 History mg/3 mL) subcutaneous pen injector Past Med/Surg History Medical History Anxiety Chronic obstructive pulmonary disease Depression Diabetes mellitus, type 2 IDDM Fibromyalgia GERD (gastroesophageal reflux disease) History of recent hospitalization Pancreatitis (09/2020; [facility]) Hx of Green's palsy Remote hx, residual occasional drooping of left side of mouth Hx of hepatitis C s/p treatment HX: breast cancer Left breast (2012) s/p radiation, lumpectomy and oral chemo Hyperlipidemia Hypertension Questionable HTN hx, appears Lisinopril for renal protection 2/2 diabetes Osteoarthritis Peripheral neuropathy Legs, feet Schizoaffective disorder Surgical History History of ankle surgery Right ankle x3 History of bilateral tubal ligation History of cholecystectomy History of colonoscopy History of dilatation and curettage History of esophagogastroduodenoscopy (EGD) EGD (10/11/20) MAC at [facility] History of hysterectomy History of lumpectomy of left breast History of open reduction and internal fixation (ORIF) procedure Right ankle History of surgery Calcium deposit removal from back History of tooth extraction All teeth Family History Father Family history of diabetes mellitus Other No family history of adverse response to anesthesia Social History Smoking Status: Current every day smoker Tobacco Type: Cigarettes Cigarettes Per Day: 10-20 cigarettes/day; Second Hand Exposure: Yes; Do You Dip or Chew Tobacco: No; Hx Alcohol Use: No Hx Substance Use: No Preferred Language: Upper Sorbian Communication Ability: Effective Jewelry Technician Required: No Beliefs That Will Affect Care: None Current Living Situation: Family Current Living Situation Comment: home with son Feels Safe at Home: Yes Assistive Devices: Nebulizer and Oxygen - at Night Review of Systems Review of Systems: Could not be reliably obtained secondary to lethargic state Physical Exam Physical Exam: GENERAL: Lethargic, looks older than stated age, no respiratory distress SKIN: Normal color, warm HEENT: [place] palpebral conjunctivae, no ptosis, dry buccal mucosa, nasal cannula in place NECK : Supple, no tenderness CHEST : Decreased breath sounds, scattered expiratory wheezes, no tenderness HEART : RRR, no obvious murmurs ABDOMEN: Some distention, nontender EXTREMITIES : No LE swelling/tenderness, no other conspicuous deformities noted NEUROLOGIC : Lethargic, no facial asymmetry, no other gross focality Results & Data Results & Data Vital Signs (Past 12 Hours) Vital Signs Temp Pulse Pulse Resp BP BP Pulse Ox 11/05/23 23:00 69 16 95 11/05/23 22:55 65 11/05/23 20:21 68 22 154/97 H 95 11/05/23 18:55 78 11/05/23 17:29 36.8 C 90 20 113/54 L 92 O2 Del Method O2 Flow Rate 11/05/23 23:00 Nasal Cannula 2 11/05/23 22:55 11/05/23 20:21 Nebulizer 5 11/05/23 18:55 11/05/23 17:29 Room Air Laboratory Results Laboratory Results WBC 10.40 K/ul (4.8-10.8) 11/05/23 17:55 RBC 4.93 M/uL (4.20-5.40) 11/05/23 17:55 Hgb 13.2 g/dl (12.0-16.0) 11/05/23 17:55 Hct 41.6 % (37.0-47.0) 11/05/23 17:55 MCV 84.4 fL (80.0-100.0) 11/05/23 17:55 MCH 26.8 pg (25.0-34.0) 11/05/23 17:55 MCHC 31.7 g/dL (32.0-36.0) L 11/05/23 17:55 RDW Std Deviation 44.6 fL (36.4-46.3) 11/05/23 17:55 RDW Coeff of Jessy 14.6 % (11.5-14.5) H 11/05/23 17:55 Plt Count 264 K/uL (130-400) 11/05/23 17:55 MPV 10.4 fL (9.4-12.4) 11/05/23 17:55 Immature Gran % (Auto) 0.6 % 11/05/23 17:55 Neut % (Auto) 73.5 % 11/05/23 17:55 Lymph % (Auto) 16.3 % 11/05/23 17:55 [place] % (Auto) 6.8 % 11/05/23 17:55 Eos % (Auto) 2.4 % 11/05/23 17:55 Baso % (Auto) 0.4 % 11/05/23 17:55 Neut # (Auto) 7.65 K/uL (1.40-6.50) H 11/05/23 17:55 Lymph # (Auto) 1.69 K/uL (1.20-3.40) 11/05/23 17:55 [place] # (Auto) 0.71 K/uL (0.11-0.59) H 11/05/23 17:55 Eos # (Auto) 0.25 K/uL (0.00-0.50) 11/05/23 17:55 Baso # (Auto) 0.04 K/uL (0.00-0.20) 11/05/23 17:55 Immature Gran # (Auto) 0.06 K/uL (0.01-0.20) 11/05/23 17:55 PT 10.4 Seconds (9.0-12.0) 11/05/23 17:55 INR 0.9 (0.9-1.1) 11/05/23 17:55 APTT 28 Seconds (21-31) 11/05/23 17:55 PTT Ratio 1.0 11/05/23 17:55 Sodium 136 mmol/L (136-145) 11/05/23 17:55 Potassium 3.5 mmol/L (3.5-5.1) 11/05/23 17:55 Chloride 102 mmol/L (98-107) 11/05/23 17:55 Carbon Dioxide 24 mmol/L (21-32) 11/05/23 17:55 Anion Gap 10 (3-11) 11/05/23 17:55 BUN 11 mg/dl (6-23) 11/05/23 17:55 Creatinine 0.77 mg/dl (0.6-1.2) 11/05/23 17:55 Est Cr Clr Drug Dosing 77.4 ml/min 11/05/23 17:55 Est GFR ( Amer) 96.6 ml/min 11/05/23 17:55 Est GFR (Non-Af Amer) 83.3 ml/min 11/05/23 17:55 BUN/Creatinine Ratio 14.3 (10-20) 11/05/23 17:55 Glucose 229 mg/dl (70-99(Fasting)) H 11/05/23 17:55 Calcium 9.3 mg/dl (8.6-10.3) 11/05/23 17:55 Magnesium 1.7 mg/dl (1.7-2.4) 11/05/23 17:55 Total Bilirubin 0.5 mg/dl (0.2-1.0) 11/05/23 17:55 AST 8 U/L (13-39) L 11/05/23 17:55 ALT 6 U/L (7-52) L 11/05/23 17:55 Alkaline Phosphatase 90 U/L (34-104) 11/05/23 17:55 Troponin I High Sens 6.6 pg/ml (0-14) 11/05/23 17:55 Total Protein 7.0 gm/dl (6.0-8.3) 11/05/23 17:55 Albumin 3.8 gm/dl (3.4-5.0) 11/05/23 17:55 Globulin 3.2 gm/dl (2.5-4.0) 11/05/23 17:55 Albumin/Globulin Ratio 1.2 (0.9-2) 11/05/23 17:55 Lipase 5 U/L (11-82) L 11/05/23 17:55 Urine Color Yellow 11/05/23 19:44 Urine Appearance Cloudy (Clear) A 11/05/23 19:44 Urine pH 6.0 (4.5-7.5) 11/05/23 19:44 Ur Specific [place] 1.033 (1.000-1.030) H 11/05/23 19:44 Urine Protein Negative (Negative) 11/05/23 19:44 Urine Glucose (UA) 3+ (Negative) H 11/05/23 19:44 Urine Ketones Trace (Negative) H 11/05/23 19:44 Urine Blood 3+ (Negative) H 11/05/23 19:44 Urine Nitrite Negative (Negative) 11/05/23 19:44 Urine Bilirubin Negative (Negative) 11/05/23 19:44 Urine Urobilinogen Negative (Negative) 11/05/23 19:44 Ur Leukocyte Esterase 2+ (Negative) H 11/05/23 19:44 Urine WBC (Auto) >50 /hpf (0-5) H 11/05/23 19:44 Urine RBC (Auto) 11-20 /hpf (0-2) H 11/05/23 19:44 U Hyaline Cast (Auto) 0-2 /lpf (0-2) 11/05/23 19:44 U Epithel Cells (Auto) 11-20 /hpf (0-2) H 11/05/23 19:44 Urine Bacteria (Auto) 1+ (None Seen) H 11/05/23 19:44 Adenovirus (PCR) Not Detected (NotDetected) 11/05/23 17:55 B. pertussis DNA (PCR) Not Detected (NotDetected) 11/05/23 17:55 B.parapertussis DNA PCR Not Detected (NotDetected) 11/05/23 17:55 C. pneumoniae DNA (PCR) Not Detected (NotDetected) 11/05/23 17:55 Coronavirus OC43 (PCR) Not Detected (NotDetected) 11/05/23 17:55 Coronavirus HKU1 (PCR) Not Detected (NotDetected) 11/05/23 17:55 Coronavirus 229E (PCR) Not Detected (NotDetected) 11/05/23 17:55 SARS-CoV-2 (PCR) Not Detected (NotDetected) 11/05/23 17:55 Coronavirus NL63 (PCR) Not Detected (NotDetected) 11/05/23 17:55 Human Metapneumovir PCR Not Detected (NotDetected) 11/05/23 17:55 Influenza Type A (PCR) Not Detected (NotDetected) 11/05/23 17:55 Influenza Type B (PCR) Not Detected (NotDetected) 11/05/23 17:55 M. pneumoniae (PCR) Not Detected (NotDetected) 11/05/23 17:55 Parainfluenza 1 (PCR) Not Detected (NotDetected) 11/05/23 17:55 Parainfluenza 2 (PCR) Not Detected (NotDetected) 11/05/23 17:55 Parainfluenza 3 (PCR) DETECTED (NotDetected) A 11/05/23 17:55 Parainfluenza 4 (PCR) Not Detected (NotDetected) 11/05/23 17:55 RSV (PCR) Not Detected (NotDetected) 11/05/23 17:55 Entero/Rhino (PCR) Not Detected (NotDetected) 11/05/23 17:55 Impressions VBG pH 7.26, pCO2 60 Abdomen/Pelvis CT 11/05/23 17:32 Exam(s): CT ABDOMEN + PELVIS With Contrast IV Amt: 92ml optiray 320 EXAM: CT Abdomen and Pelvis With Intravenous Contrast CLINICAL HISTORY: Reason for exam: Upper abdominal pain, SOB, recent trauma. TECHNIQUE: Axial computed tomography images of the abdomen and pelvis with intravenous contrast. CTDI is 22.37 mGy and DLP is 800.67 mGy-cm. Automated exposure control was utilized for the study. A dose lowering technique was utilized adhering to the principles of ALARA. CONTRAST: Patient received 92ml optiray 320 of IV contrast COMPARISON: No relevant prior studies available. FINDINGS: Lung bases: Unremarkable. No mass. No consolidation. ABDOMEN: Liver: Unremarkable. No mass. Gallbladder and bile ducts: Cholecystectomy. No ductal dilation. Pancreas: Unremarkable. No mass. No ductal dilation. Spleen: Unremarkable. No splenomegaly. Adrenals: Unremarkable. No mass. Kidneys and ureters: Unremarkable. No solid mass. No hydronephrosis. Stomach and bowel: Diverticulosis, without acute diverticulitis. No small bowel obstruction. No free intraperitoneal air. PELVIS: Appendix: Normal appendix. Bladder: Decompressed urinary bladder. Reproductive: Hysterectomy. RIGHT ovarian cyst measures 3.8 x 3.7 cm. ABDOMEN and PELVIS: Intraperitoneal space: Unremarkable. No free air. No significant fluid collection. Bones/joints: Degenerative changes of the spine. No acute fracture. No dislocation. Soft tissues: Unremarkable. Vasculature: Atherosclerotic changes of the aorta. No abdominal aortic aneurysm. Lymph nodes: Unremarkable. No enlarged lymph nodes. IMPRESSION: 1. Normal appendix. 2. Cholecystectomy. 3. Hysterectomy. 4. RIGHT ovarian cyst measures 3.8 x 3.7 cm. 5. Diverticulosis, without acute diverticulitis. No small bowel obstruction. No free intraperitoneal air. Electronically signed by: Go Stewart MD 11/05/23 20:[address] 11/05/23 17:32 Exam(s): CT CHEST With Contrast IV Amt: 92ml optiray 320 EXAM: CT Chest With Intravenous Contrast CLINICAL HISTORY: Reason for exam: SOB, chest pain, recent trauma. TECHNIQUE: Axial computed tomography images of the chest with intravenous contrast. CTDI is 22.37 mGy and DLP is 1231.35 mGy-cm. Automated exposure control was utilized for the study. A dose lowering technique was utilized adhering to the principles of ALARA. CONTRAST: Patient received 92ml optiray 320 of IV contrast COMPARISON: No relevant prior studies available. FINDINGS: Lungs: Unremarkable. No mass. No consolidation. Pleural space: Unremarkable. No pneumothorax. No significant effusion. Heart: Unremarkable. No cardiomegaly. No significant pericardial effusion. No significant coronary artery calcifications. Bones/joints: Unremarkable. No acute fracture. No dislocation. Soft tissues: Unremarkable. Vasculature: Unremarkable. No thoracic aortic aneurysm. No acute pulmonary embolism. Lymph nodes: Unremarkable. No enlarged lymph nodes. Liver: Hepatic steatosis. IMPRESSION: No acute findings in the chest. Electronically signed by: Go Stewart MD 11/05/23 20:55 PM Diagnostic Findings EKG as per my interpretation : Rate 90, NSR, LAD, LAFB, RBBB, nonspecific T wave abnormalities
[2023-11-06] MEDS ORDERED: PROMETHAZINE HCL 6.25 MG in SODIUM CHLORIDE 0.9% 50 ML IV PRN (00:12)
[2023-11-06] MEDS ORDERED: GLUCOSE 40% GEL 15 GM TUBE PO PRN (00:12)
[2023-11-06] MEDS ORDERED: GLUCOSE 10 TAB/TUBE PO PRN (00:12)
[2023-11-06] MEDS ORDERED: DEXTROSE 50% 50 ML SYRINGE IV PRN (00:12)
[2023-11-06] MEDS ORDERED: GLUCAGON FOR INJ 1 MG VIAL SQ PRN (00:12)
[2023-11-06] MEDS ORDERED: CARBOHYDRATES FOR HYPOGLYCEMIA PO PRN (00:12)
[2023-11-06 01:03] LABS: Base Excess VBG -1.4 mEq/L; HCO3 VBG 27 mmol/L; Oxygen Saturation VBG < 60.0 %; PCO2 VBG 60 mmHg (38-50); PO2 VBG 26 mmHg; pH VBG 7.26 (7.36-7.41)
[2023-11-06] MEDS: INSULIN ASPART PER UNIT CHARGE SC SCH (01:04)
[2023-11-06] MEDS: LANTUS PER UNIT CHARGE SQ SCH (01:04)
[2023-11-06] MEDS: cefTRIAXone SODIUM 2,000 MG/50 ML BAG IV STA (01:30)
[2023-11-06 01:45] LABS: D Dimer 910 ug/L FEU (0-500)
[2023-11-06] MEDS ORDERED: DICLOFENAC SOD 1% GEL 100 GM TUBE EXT PRN (01:59)
[2023-11-06] MEDS ORDERED: ACETAMINOPHEN 325 MG TAB PO PRN (01:59)
[2023-11-06] MEDS: ALBUT/IPRATROP 3MG/0.5MG NEB 3 ML VIAL NEB SCH (02:07)
[2023-11-06] MEDS: DOXYCYCLINE HYCLATE 100 MG in DEXTROSE 5% MINI-B 100 ML IV STA (02:18)
[2023-11-06] MEDS: QUEtiapine FUMARATE 200 MG TAB PO SCH (02:24)
[2023-11-06] MEDS: traZODone HCL 100 MG TAB PO SCH (02:24)
[2023-11-06 02:46] LABS: Base Excess ABG -1.7 mEq/L (-9-1.8); HCO3 ABG 24 mmol/L (19-24); Oxygen Saturation ABG 94.3 % (90-95); PCO2 ABG 45 mmHg (35-46); PO2 ABG 69 mmHg (80-95); pH ABG 7.34 (7.35-7.45)
[2023-11-06 02:59] LABS: Allen Test Pos (Pos)
[2023-11-06] MEDS: cefTRIAXone SODIUM 2000MG/50ML D5W IV ONE (04:41)
[2023-11-06] MEDS: HEPARIN SODIUM/DEXTROSE 25,000 UNITS/500 ML BAG IV SCH (04:57)
[2023-11-06] MEDS: LEVOTHYROXINE SODIUM 200 MCG TABLET PO SCH (05:57)
--- NOTE | 2023-11-06 06:53 | Ultrasound Report ---
BILATERAL LOWER EXTREMITY VENOUS DOPPLER HISTORY: Acute pain and swelling of the lower legs abn dimer COMPARISON STUDY: 08/31/2015 FINDINGS: There is normal compressibility, flow, and augmentation within the bilateral lower extremit y deep venous systems. IMPRESSION: No DVT within the right or left lower extremity. ACT 112: Negative or not required by law. Electronically signed by: Leonard Borges M.D. 11/06/2023 6:52 AM
[2023-11-06 07:34] LABS: Hematocrit (blood only) 40.1 % (37.0-47.0); Hemoglobin 12.6 g/dl (12.0-16.0); Mean Corpuscular Hemoglobin 26.5 pg (25.0-34.0); Mean Corpuscular Hgb Conc 31.4 g/dL (32.0-36.0); Mean Corpuscular Volume 84.2 fL (80.0-100.0); Mean Platelet Volume 10.2 fL (9.4-12.4); Platelet Count 252 K/uL (130-400); RDW Coefficient of Variation 14.7 % (11.5-14.5); RDW Standard Deviation 45.1 fL (36.4-46.3); Red Blood Count 4.76 M/uL (4.20-5.40); White Blood Count 7.84 K/ul (4.8-10.8)
[2023-11-06 07:51] LABS: Estimated Average Glucose 260 mg/dl; Hemoglobin A1C 10.7 % (4.5-5.6)
[2023-11-06 07:54] LABS: Basophils # (auto) 0.02 K/uL (0.00-0.20); Basophils % (auto) 0.3 %; Eosinophils # (auto) 0.01 K/uL (0.00-0.50); Eosinophils % (auto) 0.1 %; Immature Granulocytes # (auto) 0.04 K/uL (0.01-0.20); Immature Granulocytes % (auto) 0.5 %; Lymphocytes % (auto) 7.7 %; Monocytes # (auto) 0.08 K/uL (0.11-0.59); Neutrophils # (auto) 7.09 K/uL (1.40-6.50); Neutrophils % (auto) 90.4 %
[2023-11-06 08:11] LABS: Partial Thromboplastin Ratio 1.3; Partial Thromboplastin Time 37 Seconds (21-31)
[2023-11-06 08:46] LABS: Amphetamines+Metham, Urine Pos (Neg); Barbiturates, Urine Neg (Neg); Benzodiazepine, Urine Neg (Neg); Cocaine, Urine Neg (Neg); MDMA (Ecstacy), Urine Pos (Neg); Marijuana, Urine Pos (Neg); Methadone, Urine Neg (Neg); Opiate, Urine Neg (Neg); Phencyclidine, Urine Neg (Neg)
[2023-11-06 09:05] LABS: BUN Creatinine Ratio 15.4 (10-20); Calcium 8.9 mg/dl (8.6-10.3); Creatinine Clr Calc Pharmacy 76.4 ml/min; Est GFR (African American) 95.1 ml/min; Est GFR (Non-African American) 82.1 ml/min; Potassium 3.9 mmol/L (3.5-5.1)
[2023-11-06] MEDS ORDERED: PHARMACY GLYCEMIC MGMT CONSULT PRN (09:06)
[2023-11-06] MEDS: hydrOXYzine HCl 25 MG TAB PO SCH (09:11)
[2023-11-06] MEDS: DULoxetine HCL 60 MG CAP PO SCH (09:11)
[2023-11-06] MEDS: PANTOprazole 40 MG TAB PO SCH (09:11)
[2023-11-06] MEDS: GABAPENTIN 800 MG TAB PO SCH (09:11)
[2023-11-06] MEDS: FLUoxetine HCL 20 MG CAP PO SCH (09:11)
[2023-11-06] MEDS: predniSONE 20 MG TAB PO SCH (09:12)
[2023-11-06] MEDS: QUEtiapine FUMARATE 25 MG TABLET PO SCH (09:12)
[2023-11-06] MEDS: FLUTICASONE PROPIONATE NA SPR 16 GM BTL SCH (09:13)
[2023-11-06] MEDS: ENOXAPARIN INJ 40 MG/0.4 ML SYR SQ SCH (09:13)
[2023-11-06] MEDS ORDERED: LANTUS PER UNIT CHARGE SQ SCH (09:15)
[2023-11-06] MEDS: LANTUS PER UNIT CHARGE SC ONE ×2 (10:03→20:23)
[2023-11-06] MEDS: Heparin IV Adult Wt-Based Standard *NO* INITIAL Bolus Protocol IV SCH (11:04)
[2023-11-06] MEDS: CYCLOBENZAPRINE HCL 10 MG TAB PO PRN (12:44)
--- NOTE | 2023-11-06 13:31 | Pharmacy Report ---
Pharmacy Glycemic Short Note 2 - Date of Service November 06, 2023 - Glycemic Short BSG Results (Last 24 hours): 11/05/23 11/06/23 11/06/23 17:55 00:53 07:10 Glucose 229 H 313 H* POC Glucose 248 H 11/06/23 11/06/23 11/06/23 07:59 09:33 12:05 Glucose POC Glucose 296 H 283 H 285 H OUTPATIENT ANTIDIABETIC REGIMEN: * Metformin 1 g PO BIDM * Jardiance 10 mg PO daily * Semaglutide 2 mg SC weekly HbA1c: 10.7% (11/06/23) ASSESSMENT: * RH is a 63 year old female w/ acute respiratory failure secondary to COPD exacerbation * Received 125 mg IV methylprednisolone in ED, now ordered prednisone 20 mg PO daily * Pharmacy consulted for glycemic management this morning due to blood sugar > 300 mg/dL * Will tighten Novolog and add basal insulin today - titrate as needed PLAN FOR INPATIENT GLYCEMIC CONTROL: * Hold outpatient oral diabetes medications * Basal insulin * Lantus 20 units SQ x 1 this morning * Lantus 5-10-20 units SC HS * Reassess in AM * Bolus insulin * NovoLog per scale ACHS or Q6hrs while NPO * Goal Range: Low 110 mg/dL - High 140 mg/dL * Correction Factor: 20 mg/dL/unit * Nutritional / Prandial insulin per carb ratio of 1 unit per 6 grams CHO consumed
[2023-11-06] MEDS: KETOROLAC TROMETHAMINE 15 MG/ML VIAL IV PRN (16:02)
[2023-11-06] MEDS: LIDOCAINE 5% 1 PATCH TD STA (16:02)
--- NOTE | 2023-11-06 16:53 | Hospitalist Progress Note ---
Date of Service November 06, 2023 Assessment & Plan (1) Respiratory failure with hypercapnia: (2) COPD exacerbation: (3) Chest pain: (4) Hypoxic: (5) Infection due to parainfluenza virus 3: Plan: D-dimer was elevated on admission Chest CT with contrast did not show any acute abnormalities. No acute PE. Respiratory PCR was positive for parainfluenza Patient has chronic hypoxic respiratory failure on 2 L of oxygen at home. Continue prednisone for 5 days. Continue nebs. Wean oxygen as tolerated. Will need to status prior to discharge. Continue supportive care, pain control Counseled regarding smoking cessation Encephalopathy Rule out substance abuse given history Was reported to be lethargic in ER Currently AOx3 TOx screen was positive For amphetamine/meth, MDMA and marijuana. Counseled patient regarding drug use Chronic diastolic heart failure Euvolemic Plan to resume home lasix tomorrow Hyperlipidemia/statin intolerance DM2 Patient was on insulin before but stated she has not been on it for sometime She is not sure why/when Poorly controlled HbA1c 10.7 DM educator consult Will need atleast lantus in addition to current metformin, jardiance home meds on dc (6) Diabetes mellitus: (7) Hypothyroidism: Plan: Hypothyroidism, euthyroid as of recent outpatient TSH last month HCV status post Rx Schizoaffective disorder/mood disorder Breast cancer in situ status post surgery status post tamoxifen (8) DVT prophylaxis: Plan: Lovenox sq Full code I spent a total of 55 minutes coordinating, documenting and providing care for this patient excluding time spent in performance of separately billed services Admission and Anticipated Discharge Date Admission Date: November 05, 2023 Subjective Patient seen and examined. Reports shortness of breath is improved. Reports lower rib cage pain worsened with deep breaths. Reports that pain started after grandson who is over 6 feet gave her a tight squeeze/hug Reports dry cough. Denies any nausea, vomiting, abdominal pain, diarrhea Denies any dysuria, frequency or urgency Denies fevers or chills Physical Exam Constitutional: + well hydrated; no acute distress Eyes: PERRL, conjunctivae normal, anicteric sclerae ENMT: external ear and nose normal, oropharynx normal Respiratory: normal respiratory effort; no respiratory distress On nasal cannula 3 L/min, diminished breath sounds Cardiovascular: Rate/Rhythm: regular rate and regular rhythm S1-S2 Gastrointestinal (Abdomen): normal bowel sounds, soft, nontender, no hepatosplenomegaly Musculoskeletal: no cyanosis or clubbing, extremities motor strength 5/5 Neurologic: PERRL, EOMI, accommodation nl, no face palsy, no dysarthria Psychiatric: A+Ox3, euthymic affect Results & Data Results & Data Vital Signs (Past 12 Hours) Vital Signs Temp Pulse Pulse Resp BP Pulse Ox Pulse Ox 11/06/23 16:08 36.8 C 88 17 126/84 97 11/06/23 13:42 81 18 96 11/06/23 11:59 36.6 C 74 22 140/77 95 11/06/23 10:41 11/06/23 07:40 72 11/06/23 07:24 63 18 95 11/06/23 07:20 36.5 C 65 19 124/83 95 11/06/23 06:48 95 11/06/23 06:46 11/06/23 06:37 36.6 C 64 20 120/78 95 O2 Del Method O2 Del Method O2 Flow Rate O2 Flow Rate 11/06/23 16:08 Nasal Cannula 3 11/06/23 13:42 Nasal Cannula 3 11/06/23 11:59 Nasal Cannula 3 11/06/23 10:41 Nasal Cannula 3 11/06/23 07:40 11/06/23 07:24 Nasal Cannula 3 11/06/23 07:20 Nasal Cannula 3 11/06/23 06:48 Nasal Cannula 3 11/06/23 06:46 Nasal Cannula 3 11/06/23 06:37 Nasal Cannula 3 Laboratory Results Abnormal lab results 11/05/23 11/05/23 11/06/23 Range/Units 17:55 19:44 00:52 MCHC 31.7 L (32.0-36.0) g/dL RDW Coeff of Jessy 14.6 H (11.5-14.5) % Neut # (Auto) 7.65 H (1.40-6.50) K/uL Lymph # (Auto) (1.20-3.40) K/uL [place] # (Auto) 0.71 H (0.11-0.59) K/uL APTT (21-31) Seconds D-Dimer 910 H* (0-500) ug/L FEU ABG pH (7.35-7.45) ABG pO2 (80-95) mmHg VBG pH 7.26 L (7.36-7.41) VBG pCO2 60 H (38-50) mmHg Glucose 229 H (70-99(Fasting)) mg/dl POC Glucose (70-99) mg/dl Hemoglobin A1c 10.7 H (4.5-5.6) % AST 8 L (13-39) U/L ALT 6 L (7-52) U/L Lipase 5 L (11-82) U/L Urine Appearance Cloudy A (Clear) Ur Specific [place] 1.033 H (1.000-1.030) Urine Glucose (UA) 3+ H (Negative) Urine Ketones Trace H (Negative) Urine Blood 3+ H (Negative) Ur Leukocyte Esterase 2+ H (Negative) Urine WBC (Auto) >50 H (0-5) /hpf Urine RBC (Auto) 11-20 H (0-2) /hpf U Epithel Cells (Auto) 11-20 H (0-2) /hpf Urine Bacteria (Auto) 1+ H (None Seen) U Amphetamin/Meth Scrn (Neg) MDMA (Ecstasy) Screen (Neg) U Marijuana (THC) Screen (Neg) Parainfluenza 3 (PCR) DETECTED A (NotDetected) 11/06/23 11/06/23 11/06/23 Range/Units 00:53 02:35 07:10 MCHC 31.4 L (32.0-36.0) g/dL RDW Coeff of Jessy 14.7 H (11.5-14.5) % Neut # (Auto) 7.09 H (1.40-6.50) K/uL Lymph # (Auto) 0.60 L (1.20-3.40) K/uL [place] # (Auto) 0.08 L (0.11-0.59) K/uL APTT 37 H (21-31) Seconds D-Dimer (0-500) ug/L FEU ABG pH 7.34 L (7.35-7.45) ABG pO2 69 L (80-95) mmHg VBG pH (7.36-7.41) VBG pCO2 (38-50) mmHg Glucose 313 H* (70-99(Fasting)) mg/dl POC Glucose 248 H (70-99) mg/dl Hemoglobin A1c (4.5-5.6) % AST (13-39) U/L ALT (7-52) U/L Lipase (11-82) U/L Urine Appearance (Clear) Ur Specific [place] (1.000-1.030) Urine Glucose (UA) (Negative) Urine Ketones (Negative) Urine Blood (Negative) Ur Leukocyte Esterase (Negative) Urine WBC (Auto) (0-5) /hpf Urine RBC (Auto) (0-2) /hpf U Epithel Cells (Auto) (0-2) /hpf Urine Bacteria (Auto) (None Seen) U Amphetamin/Meth Scrn (Neg) MDMA (Ecstasy) Screen (Neg) U Marijuana (THC) Screen (Neg) Parainfluenza 3 (PCR) (NotDetected) 11/06/23 11/06/23 11/06/23 Range/Units 07:59 09:33 12:05 MCHC (32.0-36.0) g/dL RDW Coeff of Jessy (11.5-14.5) % Neut # (Auto) (1.40-6.50) K/uL Lymph # (Auto) (1.20-3.40) K/uL [place] # (Auto) (0.11-0.59) K/uL APTT (21-31) Seconds D-Dimer (0-500) ug/L FEU ABG pH (7.35-7.45) ABG pO2 (80-95) mmHg VBG pH (7.36-7.41) VBG pCO2 (38-50) mmHg Glucose (70-99(Fasting)) mg/dl POC Glucose 296 H 283 H 285 H (70-99) mg/dl Hemoglobin A1c (4.5-5.6) % AST (13-39) U/L ALT (7-52) U/L Lipase (11-82) U/L Urine Appearance (Clear) Ur Specific [place] (1.000-1.030) Urine Glucose (UA) (Negative) Urine Ketones (Negative) Urine Blood (Negative) Ur Leukocyte Esterase (Negative) Urine WBC (Auto) (0-5) /hpf Urine RBC (Auto) (0-2) /hpf U Epithel Cells (Auto) (0-2) /hpf Urine Bacteria (Auto) (None Seen) U Amphetamin/Meth Scrn (Neg) MDMA (Ecstasy) Screen (Neg) U Marijuana (THC) Screen (Neg) Parainfluenza 3 (PCR) (NotDetected) 11/06/23 11/06/23 Range/Units 16:01 Unknown MCHC (32.0-36.0) g/dL RDW Coeff of Jessy (11.5-14.5) % Neut # (Auto) (1.40-6.50) K/uL Lymph # (Auto) (1.20-3.40) K/uL [place] # (Auto) (0.11-0.59) K/uL APTT (21-31) Seconds D-Dimer (0-500) ug/L FEU ABG pH (7.35-7.45) ABG pO2 (80-95) mmHg VBG pH (7.36-7.41) VBG pCO2 (38-50) mmHg Glucose (70-99(Fasting)) mg/dl POC Glucose 127 H (70-99) mg/dl Hemoglobin A1c (4.5-5.6) % AST (13-39) U/L ALT (7-52) U/L Lipase (11-82) U/L Urine Appearance (Clear) Ur Specific [place] (1.000-1.030) Urine Glucose (UA) (Negative) Urine Ketones (Negative) Urine Blood (Negative) Ur Leukocyte Esterase (Negative) Urine WBC (Auto) (0-5) /hpf Urine RBC (Auto) (0-2) /hpf U Epithel Cells (Auto) (0-2) /hpf Urine Bacteria (Auto) (None Seen) U Amphetamin/Meth Scrn Pos H (Neg) MDMA (Ecstasy) Screen Pos H (Neg) U Marijuana (THC) Screen Pos H (Neg) Parainfluenza 3 (PCR) (NotDetected)
[2023-11-06] MEDS: SIMVASTATIN 20 MG TAB PO SCH (20:22)
[2023-11-06] MEDS ORDERED: DOXYCYCLINE HYCLATE 100 MG CAP PO SCH (21:00)
[2023-11-06] MEDS: LATANOPROST 0.005% OP SOLN 2.5 ML BTL OPB SCH (21:34)
[2023-11-07 06:28] LABS: Hematocrit (blood only) 34.1 % (37.0-47.0); Hemoglobin 10.9 g/dl (12.0-16.0); Mean Corpuscular Hemoglobin 26.8 pg (25.0-34.0); Mean Corpuscular Volume 83.8 fL (80.0-100.0); Mean Platelet Volume 10.2 fL (9.4-12.4); Platelet Count 244 K/uL (130-400); RDW Coefficient of Variation 14.7 % (11.5-14.5); Red Blood Count 4.07 M/uL (4.20-5.40); White Blood Count 9.94 K/ul (4.8-10.8)
[2023-11-07 06:48] LABS: BUN Creatinine Ratio 18.9 (10-20); Calcium 8.9 mg/dl (8.6-10.3); Creatinine Clr Calc Pharmacy 81.3 ml/min; Est GFR (African American) 101.3 ml/min; Est GFR (Non-African American) 87.4 ml/min; Magnesium 2.1 mg/dl (1.7-2.4); Phosphorus 4.1 mg/dl (2.5-4.9); Potassium 3.7 mmol/L (3.5-5.1)
[2023-11-07] MEDS: LANTUS PER UNIT CHARGE SC SCH ×2 (08:44→20:50)
[2023-11-07] MEDS ORDERED: LANTUS PER UNIT CHARGE SC SCH (09:00)
--- NOTE | 2023-11-07 14:01 | Hospitalist Progress Note ---
Date of Service November 07, 2023 Assessment & Plan (1) Respiratory failure with hypercapnia: (2) COPD exacerbation: (3) Chest pain: (4) Hypoxic: (5) Infection due to parainfluenza virus 3: Plan: D-dimer was elevated on admission Chest CT with contrast did not show any acute abnormalities. No acute PE. No fracture Respiratory PCR was positive for parainfluenza Patient has chronic hypoxic respiratory failure on 2 L of oxygen at home. Continue prednisone Continue nebs. 2 Step noted 2L oxygen required with activity Continue supportive care, pain control Counseled regarding smoking cessation IV toradol prn pain Encephalopathy Rule out substance abuse given history Was reported to be lethargic in ER Currently AOx3 TOx screen was positive For amphetamine/meth, MDMA and marijuana. Counseled patient regarding drug use Chronic diastolic heart failure Euvolemic Home lasix resumed Hyperlipidemia/statin intolerance DM2 Patient was on insulin before but stated she has not been on it for sometime She is not sure why/when Poorly controlled HbA1c 10.7 DM educator consult Will resume previous dose of lantus on discharge in addition to current metformin, jardiance home meds on dc Full code DVT ppx: Lovenox sq I spent a total of 40 minutes coordinating, documenting and providing care for this patient excluding time spent in performance of separately billed services (6) Diabetes mellitus: (7) Hypothyroidism: Plan: Hypothyroidism, euthyroid as of recent outpatient TSH last month HCV status post Rx Schizoaffective disorder/mood disorder Breast cancer in situ status post surgery status post tamoxifen (8) DVT prophylaxis: Plan: Lovenox sq Full code I spent a total of 55 minutes coordinating, documenting and providing care for this patient excluding time spent in performance of separately billed services Admission and Anticipated Discharge Date Admission Date: November 05, 2023 Subjective Patient seen and examined. Reports feeling better today. Still reports rib cage pain and shortness of breath with exertion. Reports cough is mildly improved Physical Exam Constitutional: + well hydrated; no acute distress Eyes: PERRL, conjunctivae normal, anicteric sclerae ENMT: external ear and nose normal, oropharynx normal Respiratory: normal respiratory effort; no respiratory distress Improved air movement Cardiovascular: Rate/Rhythm: regular rate and regular rhythm S1 S2 Gastrointestinal (Abdomen): normal bowel sounds, soft, nontender, no hepatosplenomegaly Musculoskeletal: no cyanosis or clubbing, extremities motor strength 5/5 Neurologic: PERRL, EOMI, accommodation nl, no face palsy, no dysarthria Psychiatric: A+Ox3, euthymic affect Results & Data Results & Data Vital Signs (Past 12 Hours) Vital Signs Temp Pulse Pulse Pulse Pulse Pulse Pulse 11/07/23 10:56 36.7 C 70 11/07/23 08:52 91 H 90 90 75 11/07/23 08:00 55 L 11/07/23 08:00 11/07/23 07:20 36.6 C 63 11/07/23 03:06 36.5 C 82 Resp Resp Resp Resp Resp BP Pulse Ox 11/07/23 10:56 20 117/79 95 11/07/23 08:52 20 18 20 18 11/07/23 08:00 11/07/23 08:00 11/07/23 07:20 17 129/85 96 11/07/23 03:06 16 90/57 L 96 Pulse Ox Pulse Ox Pulse Ox Pulse Ox O2 Del Method O2 Flow Rate O2 Flow Rate 11/07/23 10:56 Room Air 11/07/23 08:52 87 L 92 85 L 92 1 11/07/23 08:00 11/07/23 08:00 Nasal Cannula 3 11/07/23 07:20 Nasal Cannula 2 11/07/23 03:06 Nasal Cannula 3 O2 Flow Rate 11/07/23 10:56 11/07/23 08:52 2 11/07/23 08:00 11/07/23 08:00 11/07/23 07:20 11/07/23 03:06 Laboratory Results Abnormal lab results 11/06/23 11/07/23 11/07/23 Range/Units 19:54 05:41 07:48 RBC 4.07 L (4.20-5.40) M/uL Hgb 10.9 L (12.0-16.0) g/dl Hct 34.1 L (37.0-47.0) % RDW Coeff of Jessy 14.7 H (11.5-14.5) % Glucose 213 H (70-99(Fasting)) mg/dl POC Glucose 178 H 222 H (70-99) mg/dl 11/07/23 11/07/23 Range/Units 12:08 12:10 RBC (4.20-5.40) M/uL Hgb (12.0-16.0) g/dl Hct (37.0-47.0) % RDW Coeff of Jessy (11.5-14.5) % Glucose (70-99(Fasting)) mg/dl POC Glucose 343 H* 367 H* (70-99) mg/dl
[2023-11-07] MEDS: KETOROLAC 30 MG/ML VIAL IV PRN (14:48)
--- NOTE | 2023-11-07 14:59 | Pharmacy Report ---
Pharmacy Glycemic Short Note 2 - Date of Service November 07, 2023 - Glycemic Short BSG Results (Last 24 hours): 11/06/23 11/06/23 11/07/23 16:01 19:54 05:41 Glucose 213 H POC Glucose 127 H 178 H 11/07/23 11/07/23 11/07/23 07:48 12:08 12:10 Glucose POC Glucose 222 H 343 H* 367 H* OUTPATIENT ANTIDIABETIC REGIMEN: * Metformin 1 g PO BIDM * Jardiance 10 mg PO daily * Semaglutide 2 mg SC weekly HbA1c: 10.7% (11/06/23) ASSESSMENT: 11/06 * Patient received total of 70 units of insulin yesterday, of which 30 units were basal insulin * Fasting BSG was 213 mg/dL - patient continues on prednisone 20 mg daily, would anticipate insulin needs to decrease as prior steroids wear off (solm 125 iv rec yesterday in addition to prednisone 20 mg) * Lunch BSG is trending upward. Hesitant to make any changes as parameters already at weight base stress of 3 - will confirm with RN that patient is not snacking prior to adjusting further. Will have scale on for basal at HS 11/05 * RH is a 63 year old female w/ acute respiratory failure secondary to COPD exacerbation * Received 125 mg IV methylprednisolone in ED, now ordered prednisone 20 mg PO daily * Pharmacy consulted for glycemic management this morning due to blood sugar > 300 mg/dL * Will tighten Novolog and add basal insulin today - titrate as needed PLAN FOR INPATIENT GLYCEMIC CONTROL: * Hold outpatient oral diabetes medications * Basal insulin * Lantus 30 units x 1 this AM * Lantus 0-15 units HS * Bolus insulin * NovoLog per scale ACHS or Q6hrs while NPO * Goal Range: Low 110 mg/dL - High 140 mg/dL * Correction Factor: 20 mg/dL/unit * Nutritional / Prandial insulin per carb ratio of 1 unit per 6 grams CHO consumed
[2023-11-07] MEDS: FUROSEMIDE 20 MG TAB PO SCH (17:50)
[2023-11-07] MEDS: ACETAMINOPHEN 1,000 MG/100 ML VIAL IV PRN (20:24)
[2023-11-07] MEDS: COUGH DROP (SUGAR FREE) LOZ 24 LOZ/1 BOX BUCCAL STA (21:26)
[2023-11-08 06:09] LABS: Hematocrit (blood only) 33.6 % (37.0-47.0); Hemoglobin 10.8 g/dl (12.0-16.0); Mean Corpuscular Hemoglobin 26.8 pg (25.0-34.0); Mean Corpuscular Hgb Conc 32.1 g/dL (32.0-36.0); Mean Corpuscular Volume 83.4 fL (80.0-100.0); Mean Platelet Volume 9.6 fL (9.4-12.4); Platelet Count 234 K/uL (130-400); RDW Coefficient of Variation 14.6 % (11.5-14.5); RDW Standard Deviation 44.5 fL (36.4-46.3); Red Blood Count 4.03 M/uL (4.20-5.40); White Blood Count 8.66 K/ul (4.8-10.8)
--- NOTE | 2023-11-08 06:16 | Electrocardiogram Report ---
Test Reason : Blood Pressure : / mmHG Vent. Rate : 091 BPM Atrial Rate : 091 BPM P-R Int : 150 ms QRS Dur : 118 ms QT Int : 400 ms P-R-T Axes : 068 -72 049 degrees QTc Int : 492 ms Normal sinus rhythm Right bundle branch block Left anterior fascicular block Bifascicular block Cannot rule out Anterior infarct , age undetermined Abnormal ECG When compared with ECG of 17-DEC-2022 05:59, No significant change Confirmed by Liam Champion ([id number]) on 11/08/2023 6:15:54 AM Referred By: REFERRED SELF Confirmed By:Liam Champion
[2023-11-08 06:30] LABS: BUN Creatinine Ratio 29.1 (10-20); Calcium 8.7 mg/dl (8.6-10.3); Creatinine Clr Calc Pharmacy 68.8 ml/min; Est GFR (African American) 84.5 ml/min; Est GFR (Non-African American) 72.9 ml/min; Potassium 3.8 mmol/L (3.5-5.1)
[2023-11-08] MEDS: INSULIN ASPART PER UNIT CHARGE SC SCH ×2 (08:41→12:33)
[2023-11-08] MEDS: LANTUS PER UNIT CHARGE SC SCH (08:42)
--- NOTE | 2023-11-08 10:24 | Pharmacy Report ---
Pharmacy Glycemic Short Note 2 - Date of Service November 08, 2023 - Glycemic Short BSG Results (Last 24 hours): 11/07/23 11/07/23 11/07/23 12:08 12:10 16:50 Glucose POC Glucose 343 H* 367 H* 157 H 11/07/23 11/08/23 11/08/23 20:38 05:47 08:04 Glucose 231 H POC Glucose 117 H 231 H OUTPATIENT ANTIDIABETIC REGIMEN: * Metformin 1 g PO BIDM * Jardiance 10 mg PO daily * Semaglutide 2 mg SC weekly HbA1c: 10.7% (11/06/23) ASSESSMENT: 11/07 * Blood sugars trended down nicely following lunchtime high of 343 mg/dL * Given continued trend of highest blood sugar at lunchtime, will tighten AM Novolog parameters and loosen for rest of day * Plan to increase basal insulin today as well * Plan is for discharge home today 11/06 * Patient received total of 70 units of insulin yesterday, of which 30 units were basal insulin * Fasting BSG was 213 mg/dL - patient continues on prednisone 20 mg daily, would anticipate insulin needs to decrease as prior steroids wear off (solm 125 iv rec yesterday in addition to prednisone 20 mg) * Lunch BSG is trending upward. Hesitant to make any changes as parameters already at weight base stress of 3 - will confirm with RN that patient is not snacking prior to adjusting further. Will have scale on for basal at HS 11/05 * RH is a 63 year old female w/ acute respiratory failure secondary to COPD exacerbation * Received 125 mg IV methylprednisolone in ED, now ordered prednisone 20 mg PO daily * Pharmacy consulted for glycemic management this morning due to blood sugar > 300 mg/dL * Will tighten Novolog and add basal insulin today - titrate as needed PLAN FOR INPATIENT GLYCEMIC CONTROL: * Hold outpatient oral diabetes medications * Basal insulin * Lantus 30 units x 1 this AM * Lantus 5-10-15 units HS (see EHR for details) * Bolus insulin * NovoLog per scale ACHS or Q6hrs while NPO * Goal Range: Low 110 mg/dL - High 140 mg/dL * Correction Factor: 15 mg/dL/unit at breakfast, 20 mg/dL/unit at lunch, dinner, and HS * Nutritional / Prandial insulin per carb ratio of 1 unit per 5 grams CHO consumed at breakfast, 1 unit per 6 grams CHO consumed at lunch, dinner, and HS
--- NOTE | 2023-11-08 12:04 | Discharge Summary ---
Date of Service November 08, 2023 Admission HPI Per Admitting Provider History obtained from patient and records. Limited history from patient secondary to lethargic state. Medical history significant for chronic diastolic heart failure (EF 55-60, TTE 2022), COPD, hyperlipidemia/statin intolerance, DM2 insulin requiring, hypothyroidism, HCV status post Rx, schizoaffective disorder, mood disorder, breast cancer in situ status post surgery status post tamoxifen, past alcohol abuse, substance abuse as per records, ongoing tobacco abuse. Last confinement 2022 for chest pain and COPD exacerbation. 1 week history of junky cough symptoms and worsening shortness of breath. Pleuritic chest pain. Possible sick contact at home. Denies aspiration. No fever, no chills. Denies abdominal pain or UTI symptoms. Solu-Medrol, neb treatment, and ceftriaxone administered at the ER. Patient later noted to be lethargic at the ER. Medical History as above Surgical History : Breast biopsy, tibia surgery, dental surgery, toe surgery cholecystectomy, BTL, partial hysterectomy Family History : Asthma, DM Personal/Social history : Half pack daily, past alcohol abuse, disabled Admission Exam Per Admitting Provider GENERAL: Lethargic, looks older than stated age, no respiratory distress SKIN: Normal color, warm HEENT: [place] palpebral conjunctivae, no ptosis, dry buccal mucosa, nasal cannula in place NECK : Supple, no tenderness CHEST : Decreased breath sounds, scattered expiratory wheezes, no tenderness HEART : RRR, no obvious murmurs ABDOMEN: Some distention, nontender EXTREMITIES : No LE swelling/tenderness, no other conspicuous deformities noted NEUROLOGIC : Lethargic, no facial asymmetry, no other gross focality Principal Diagnosis COPD exacerbation Parainfluenza infection Poorly controlled Diabetes mellitus Discharge Exam Constitutional + well hydrated; no acute distress Eyes PERRL, conjunctivae normal, anicteric sclerae ENMT external ear and nose normal, oropharynx normal Respiratory normal respiratory effort; no respiratory distress Auscultation: lungs clear to auscultation bilaterally Cardiovascular Rate/Rhythm: regular rate and regular rhythm S1 S2 Gastrointestinal (Abdomen) normal bowel sounds, soft, nontender, no hepatosplenomegaly Musculoskeletal no cyanosis or clubbing, extremities motor strength 5/5 Neurologic PERRL, EOMI, accommodation nl, no face palsy, no dysarthria Psychiatric A+Ox3, euthymic affect Discharge Data Allergies Allergy/AdvReac Type Severity Reaction Status Date / Time varenicline AdvReac Intermediate Nightmares Verified 11/05/23 23:40 Consultations 11/05/23 21:35 ED Decision to Admit Stat Ordered Studies 11/05/23 17:32 CT abd pelvis IV con only Stat CT chest diagnostic w con Stat 11/06/23 01:49 US venous doppler LE BI Routine Diabetes Follow up Diabetes Follow-up Needed for HgbA1c >9% Hospital Course (1) Respiratory failure with hypercapnia: (2) COPD exacerbation: (3) Chest pain: (4) Hypoxic: (5) Infection due to parainfluenza virus 3: D-dimer was elevated on admission Chest CT with contrast did not show any acute abnormalities. No acute PE. No fracture Respiratory PCR was positive for parainfluenza Patient has chronic hypoxic respiratory failure on 2 L of oxygen at home. Continue prednisone Continue nebs. 2 Step noted 2L oxygen required with activity Continue supportive care, pain control Counseled regarding smoking cessation Encephalopathy, toxic Was reported to be lethargic in ER Likely related to drug use TOx screen was positive For amphetamine/meth, MDMA and marijuana. Resolved Counseled patient regarding drug use Chronic diastolic heart failure Euvolemic Continue home lasix Hyperlipidemia/statin intolerance DM2 Patient was on insulin before but stated she has not been on it for sometime She is not sure why/when Poorly controlled HbA1c 10.7 DM education provided Discharged on lantus 20U qAM in addition to current metformin, jardiance (6) Diabetes mellitus: (7) Hypothyroidism: Hypothyroidism, euthyroid as of recent outpatient TSH last month HCV status post Rx Schizoaffective disorder/mood disorder Breast cancer in situ status post surgery status post tamoxifen Total Time Total Time Spent Total Time Spent (In Minutes): 35 Total Time Includes: Examination of the Patient, Discharge Planning and Medication Reconciliation Discharge Plan Discharge Items Patient Disposition: Home - Self-Care Reason For Visit: COPD EX Discharge Diagnosis: COPD exacerbation Poorly controlled Diabetes mellitus Parainfluenza infection Condition on Discharge: Good Activity: Resume your previous activity Non-emergency contact: Primary Care Provider Call non-emergency contact if: you have any medication questions Follow-up/Referrals: Ania Rice MD [Primary Care Provider] - (Date & Time 11/12/2023 11:00 AM Provider Margarito Butcher DO Department General Internal Medicine [facility] ) Diet: Carb Consistent or DM2 Addtl Attending Provider Instructions: Ms Gates You came to the hospital with cough and shortness of breath. You were evaluated and managed for the above listed diagnoses. Your Hemoglobin A1c was high at 10.7 You are being discharged on insulin glargine 20 units every morning Please monitor your blood sugar at home as instructed. Use your home oxygen at 2L with activity Please ensure follow up with your Family doctor. Please quit smoking as we discussed. It was a pleasure taking care of you. Pending Studies at Discharge: No Stand-Alone Forms: [facility], Smoking Cessation Medications and DC Order Prescriptions: New insulin glargine [Lantus Solostar U-100 Insulin] 100 unit/mL (3 mL) insulin pen 20 unit subcut QAM Qty: 15 0RF (DME) pen needle, diabetic 32 gauge x 5/32" needle See Rx Instructions .Route Qty: 100 0RF Rx Instructions: Inject once a day Continued duloxetine 60 mg Capsule,Delayed Release(Dr/Ec) 60 mg PO QAM simvastatin 20 mg Tablet 20 mg PO HS potassium chloride 20 mEq tablet extended release 20 meq PO BID Qty: 4 0RF cyclobenzaprine 10 mg tablet 10 mg PO BID PRN (Reason: Muscle Spasm) furosemide 20 mg tablet 20 mg PO QAM omeprazole 40 mg Capsule,Delayed Release(Dr/Ec) 40 mg PO QAM quetiapine 200 mg tablet 200 mg PO HS hydroxyzine HCl 50 mg tablet 50 mg PO BID gabapentin 800 mg tablet 800 mg PO TID metformin 500 mg Tablet Extended Release 24 Hr 1,000 mg PO BIDM ondansetron HCl 4 mg tablet 4 mg PO Q8 PRN (Reason: Nausea) clindamycin phosphate 1 % Gel 1 applic TOPICAL BID PRN (Reason: .FLARE UP) trazodone 150 mg tablet 300 mg PO HS nystatin 100,000 unit/gram Powder 1 applic TOPICAL BID PRN (Reason: .IRRITATION) albuterol sulfate 90 mcg/actuation Hfa Aerosol Inhaler 2 puff INHALATION Q6H PRN (Reason: Shortness Of Breath Or Wheezing) fluticasone propionate 50 mcg/actuation spray,suspension 2 spray INTRANASAL QAM chlorhexidine gluconate [Hibiclens] 4 % liquid 1 applic TOPICAL DAILY Rx Instructions: WASH UNDERARMS AND GROIN DAILY prazosin 2 mg capsule 2 - 4 mg PO HS PRN (Reason: .NIGHTMERES) quetiapine 50 mg tablet 50 mg PO QAM diclofenac sodium 1 % Gel 4 g TOPICAL BID PRN (Reason: Pain) Rx Instructions: APPLY TO RIGHT CALF, ANKLE, AND LEFT SHOULDER TWO TIMES DAILY Jardiance 10 mg tablet 10 mg PO QAM ipratropium-albuterol 0.5 mg-3 mg(2.5 mg base)/3 mL solution for nebulization 3 ml INHALATION QID Rx Instructions: INHALE 3ML IN THE AM, AT NOON, IN THE EVENING, AND AT BEDTIME. fluoxetine 20 mg capsule 20 mg PO QAM levothyroxine 200 mcg tablet 200 mcg PO DAILYBB acetaminophen 500 mg Tablet 500 - 1,500 mg PO DAILY PRN (Reason: Pain) latanoprost 0.005 % drops 1 drp OPB QPM semaglutide 0.25 mg or 0.5 mg (2 mg/3 mL) Pen Injector 2 mg SUBCUT WK Rx Instructions: TAKE THIS MED EVERY SATURDAY Discharge Orders: Discharge Order (Routine); Ordered 11/08/23 Ordered By: Stefany Murphy/Other Patient Handouts: High Blood Sugar (Hyperglycemia), Managing Type 2 Diabetes Admission Data Admit Date/Time: 11/05/23 23:54 Attending Provider: Stefany Cole I. Admit Provider: Margarito Juarez Primary Care Provider: Ania Rice Other Providers: Margarito Juarez Other Interventions: Discharge Summary Assessment (RN) Last Done: 11/08/23 12:56
[2023-11-10 15:43] LABS: Amphetamine Urine, Confirm NEGATIVE ng/mL (<250); MDA negative; MDEA negative; MDMA (Ecstasy) Urine, Confirm negative; Marijuana Quant, GCMS Urine 39 ng/mL (<5); Methamphetamine, Ur Confirm 1362 ng/mL (<250)
== END 2023-11-08 14:28 | disposition home or self-care (01) | DRG 190 ==
LOC: ED 17:22 → EDINP 23:54 → 4W 11-06 02:00